=== PATIENT | male | born 1955 | race Caucasian/White ===

== ENCOUNTER 2020-04-09 08:12 | Outpatient (REF) | payer OTHER, SELFPAY ==
--- NOTE | 2020-04-09 | US_ITS ---
EXAMINATION: MM DIAGNOSTIC DIGITAL BREAST TOMOSYNTHESIS, BILATERAL US DIAGNOSTIC ULTRASOUND BREAST, RIGHT CLINICAL INFORMATION: Male age 64 with 2-3 week history palpable fullness and tenderness retroareolar right breast. No discharge. No known family history breast cancer. No prior breast imaging. COMPARISON: None (current study represents initial baseline exam). TECHNIQUE: Digital breast tomosynthesis is performed in both the craniocaudal and mediolateral oblique views along with computer-aided detection (CAD). Synthesized 2D images are generated from the tomosynthesis. Ultrasound right breast is targeted to the retroareolar and periareolar region. Grayscale imaging and color Doppler are performed without and with harmonics. FINDINGS: There are scattered areas of fibroglandular density (ACR BI-RADS breast composition Category b). There is asymmetric gynecomastia type parenchymal pattern, moderate on right and mild on left. There is no superimposed mass or architectural abnormality or abnormal calcifications. The axilla and skin contours are unremarkable. Ultrasound demonstrates no cystic or solid mass or architectural abnormality. No focal duct ectasia. No skin thickening or edema tracking in soft tissue planes. Results are discussed with the patient at time of visit. IMPRESSION: Bilateral asymmetric gynecomastia, greater on right. ASSESSMENT: BI-RADS 2: Benign RECOMMENDATION: Patient may be managed based on the clinical impression. If clinically indicated, further evaluation may be considered with surgical consult. Decision to proceed with biopsy should be based on clinical grounds and degree of clinical concern.
== END 2020-04-09 08:13 | disposition home or self-care (01) ==
LOC: HO.MAMMO 08:12
PROVIDERS: PCP Family Medicine; Visit Provider Family Medicine
DX: N63.10 Unspecified lump in the right breast, unspecified quadrant (principal)
CPT/HCPCS: 76642; 77062; 77066; 78013

== ENCOUNTER → 2020-09-04 15:01 | Outpatient (BNVA) | payer OTHER, SELFPAY | PROVIDERS: PCP Family Medicine; Visit Provider Internal Medicine | DX: I25.10 Atherosclerotic heart disease of native coronary artery without angina pectoris (principal); I25.5 Ischemic cardiomyopathy; I10 Essential (primary) hypertension; E78.5 Hyperlipidemia, unspecified; I45.10 Unspecified right bundle-branch block; G47.33 Obstructive sleep apnea (adult) (pediatric); Z99.89 Dependence on other enabling machines and devices | CPT/HCPCS: 93005 ==

== ENCOUNTER 2020-09-10 08:24 | Outpatient (REF) | payer OTHER, SELFPAY ==
[2020-09-10 09:23] LABS: Anion Gap 16 (12-20); Blood Urea Nitrogen 54 mg/dL (9-16); Calcium 8.8 mg/dL (8.4-10.2); Carbon Dioxide 17 mmol/L (22-29); Chloride 108 mmol/L (96-108); Estimated Glomerular Filt Rate 37; Potassium 5.1 mmol/L (3.3-5.1); Sodium 136 mmol/L (135-145)
== END 2020-09-10 08:25 | disposition home or self-care (01) ==
LOC: HO.LAB 08:24
PROVIDERS: PCP Nurse Practitioner Family; Visit Provider Internal Medicine Hypertension Specialist
DX: I13.0 Hypertensive heart and chronic kidney disease with heart failure and stage 1 through stage 4 chronic kidney disease, or unspecified chronic kidney disease (principal); I50.9 Heart failure, unspecified; N18.9 Chronic kidney disease, unspecified
CPT/HCPCS: 36415; 80051; 82310; 82565; 84520

== ENCOUNTER → 2021-02-12 14:54 | Outpatient (REF) | payer OTHER, SELFPAY ==
--- NOTE | 2021-02-12 14:58 | CA_ITS ---
Transthoracic Echocardiogram Patient (Last, First, Middle): Giovanni Sanders M Gender: Male Date of : 1955 Age: 65 Procedure Date: 02/12/2021 Procedure Type: Transthoracic Echocardiogram Location: OP Height: 175.26 cm Weight: 111.13 kg BSA: 2.25 m2 Heart Rate: bpm BP: 124 / 80 mmHg Vamper: Referring MD: Min Vanegas MD Symptoms: I25.5 - Ischemic cardiomyopathy, S/P CABG X3 2019 Study Quality: Fair ECG Rhythm: Sinus Conclusions: - The left ventricular systolic function is normal. The visually estimated ejection fraction is between 55-60%. - There is moderately increased left ventricular wall thickness. - There is moderately decreased right ventricular systolic function. - The basal inferior segment is hypokinetic. - The left atrium is moderately dilated. - No obvious valvular pathology seen on this study. Findings Left Ventricle Normal left ventricular cavity size. There is moderately increased left ventricular wall thickness. The left ventricular systolic function is normal. The visually estimated ejection fraction is between 55-60%. There is no evidence of regional wall motion abnormalities. E/E prime ratio is between 8 and 15 consistent with indeterminate filling pressures. Evidence suggests grade I (mild) diastolic dysfunction. Wall Motion Rest Echo Findings The basal inferior segment is hypokinetic. Right Ventricle Normal right ventricular cavity size. There is moderately decreased right ventricular systolic function. TAPSE 1.21cm. Atria The left atrium is moderately dilated. The right atrium is mildly dilated. Aortic Valve There is a normal trileaflet aortic valve. There is no aortic valve stenosis. There is no aortic valve regurgitation. Mitral Valve The mitral valve appears normal. There is no mitral valve regurgitation. There is no mitral valve stenosis. Pulmonic Valve The pulmonic valve was not well visualized. Tricuspid Valve There is trace tricuspid valve regurgitation. The pulmonary artery systolic pressure is normal. Great Vessels The aortic annulus, sinuses of valsalva, and asc aorta are normal in size. Venous The inferior vena cava is normal in size and collapses greater than 50% with inspiration. Pericardium/Pleural There is no evidence of pericardial effusion. Prior Study Comparison No significant change compared to prior study dated: 05/18/2019. Recommendations, Care & Conclusions No obvious valvular pathology seen on this study. Measurements 2D Linear Measurements IVSd: 1.44 0.6-0.9/0.6-1.0 cm LVIDd: 5.92 3.9-5.3/4.2-5.9 cm LVIDd Index: 2.63 2.4-3.2/2.2-3.1 cm/m2 LVIDs: 4.52 2.0-3.6 cm LVPWd: 1.39 0.7-1.1 cm Ao Root: 3.70 2.1-3.5 cm LA Diam: 5.40 2.7-3.8/3.0-4.0 cm LAIDs Index: 2.40 1.5-2.3 cm/m2 LV Mass: 480.95 67-162/88-224 g LV Mass Index: 213.75 43-95/49-115 g/m2 LVOT Diam: 2.10 3.0+(-)1.3 cm 2D Systolic Function EF 4C: 54.20 >55% EF 2C: 49.80 >55% EF BiP: 52.00 >55% Mitral Valve MV Pk E: 0.65 MV PK A: 0.88 MV Decel Time: 212.00 E/A: 0.70 E'Lateral: 10.60 E'Medial: 5.77 E/E' Med: 11.20 E/E' Lat: 6.10 PHT: 62.00 MVA PHT: 3.55 Decel [place]: 3.05 Aortic Valve AoV Pk Enzo: 1.74 AoV Mn Enzo: 1.17 AoV VTI: 0.33 AoV Pk Grad: 12.00 Aov Mn Grad: 6.00 HOLLY Cont.VTI: 2.29 LVOT LVOT Pk Enzo: 1.08 LVOT Mn Enzo: 0.66 LVOT VTI: 0.22 LVOT Pk Grad: 5.00 LVOT Mn Grad: 2.00 LVOT Diam: 2.10 LVOT Area: 3.46 Diastolic Function MV Pk E: 0.65 MV Pk A: 0.88 E/A: 0.70 E'Medial: 5.77 E/E' Med: 11.20 E' Laterial: 10.60 E/E' Lat: 6.10 Right Ventricle TAPSE (mm): 12.00 Tricuspid Valve TR Pk Enzo: 2.07 TR Pk Grad: 17.00 RA Press: 3.00 RVSP: 20.00 Great Vessels Aorta Ao Root-2D: 3.70 2.0-3.7 cm Ao Asc: 3.70 2.1-3.4 cm Pulmonary Valve PV Pk Enzo: 1.22 Peak PV Grad: 6.00 Updated in Other Vendor System with Status of Final Min Vanegas MD electronically signed on 02/13/2021 12:01:45 PM with status of Final
== END ==
LOC: HO.CARD 14:54
PROVIDERS: PCP Nurse Practitioner Family; Visit Provider Internal Medicine
DX: I25.5 Ischemic cardiomyopathy (principal)
CPT/HCPCS: 93306

== ENCOUNTER 2021-03-07 12:01 | Outpatient (REF) | payer OTHER, SELFPAY ==
[2021-03-07 14:40] LABS: Anion Gap 13 (12-20); Blood Urea Nitrogen 40 mg/dL (9-16); Calcium 9.3 mg/dL (8.4-10.2); Carbon Dioxide 22 mmol/L (22-29); Chloride 108 mmol/L (96-108); Estimated Glomerular Filt Rate 36; Glucose Random 87 mg/dL (60-115); Potassium 4.5 mmol/L (3.3-5.1); Sodium 138 mmol/L (135-145)
== END 2021-03-07 12:02 | disposition home or self-care (01) ==
LOC: HO.LAB 12:01
PROVIDERS: PCP Nurse Practitioner Family; Visit Provider Internal Medicine
DX: I25.5 Ischemic cardiomyopathy (principal)
CPT/HCPCS: 36415; 80048

== ENCOUNTER → 2021-03-12 14:58 | Outpatient (BNVA) | payer OTHER, SELFPAY | PROVIDERS: PCP Nurse Practitioner Family; Referring Provider Nurse Practitioner Family; Visit Provider Internal Medicine ==

== ENCOUNTER 2021-03-19 06:52 | Outpatient (REF) | payer OTHER, SELFPAY ==
[2021-03-19 09:05] LABS: Anion Gap 13 (12-20); Blood Urea Nitrogen 36 mg/dL (9-16); Calcium 9.2 mg/dL (8.4-10.2); Carbon Dioxide 22 mmol/L (22-29); Chloride 108 mmol/L (96-108); Estimated Glomerular Filt Rate 38; Sodium 138 mmol/L (135-145)
== END 2021-03-19 06:53 | disposition home or self-care (01) ==
LOC: HO.LAB 06:52
PROVIDERS: PCP Nurse Practitioner Family; Visit Provider Internal Medicine Hypertension Specialist
DX: N18.31 Chronic kidney disease, stage 3a (principal)
CPT/HCPCS: 36415; 80051; 82310; 82565; 84520

== ENCOUNTER 2021-08-16 10:35 | Outpatient (REF) | payer OTHER, SELFPAY ==
--- NOTE | ~2021-08-16 | XR_ITS ---
EXAMINATION: XR ANKLE, LEFT CLINICAL INFORMATION: Effusion. Pain COMPARISON: None TECHNIQUE: AP, lateral, and mortise views of the left ankle. FINDINGS: There is moderate lateral malleolar soft tissue swelling with bridging osteophyte along the fibula and talus. The ankle mortise and subtalar joints are normal. There is a moderate size calcaneal heel and retrocalcaneal enthesophytes. No acute fracture seen. XR/XR ankle LT min 3V IMPRESSION: Moderate size retrocalcaneal and calculi heel enthesophytes. No visible acute fracture or dislocation seen.
== END 2021-08-16 10:36 | disposition home or self-care (01) ==
LOC: HO.HMGCX 10:35
PROVIDERS: PCP Nurse Practitioner Family; Visit Provider Nurse Practitioner Family
DX: M25.472 Effusion, left ankle (principal)
CPT/HCPCS: 73610

== ENCOUNTER 2021-08-23 06:14 | Outpatient (REF) | payer OTHER, SELFPAY ==
[2021-08-23 07:29] LABS: Hemoglobin 13.6 g/dl (14.0-18.0); Mean Corpuscular HGB Conc 33.2 g/dl (31.0-36.0); Mean Corpuscular Hemoglobin 28.2 pg (27.0-33.0); Mean Corpuscular Volume 85.1 fL (80.0-98.0); Mean Platelet Volume 10.7 fL (9.4-12.4); Platelet Count 185 X10*3/uL (160-400); Red Blood Count 4.82 X10*6/uL (4.60-5.80); White Blood Count 16.6 X10*3/uL (4.8-10.8)
[2021-08-23 07:52] LABS: Alanine Aminotransferase 34 U/L (0-40); Albumin Level 3.9 g/dL (3.5-5.0); Alkaline Phosphatase 71 U/L (39-117); Anion Gap 12 (12-20); Aspartate Amino Transferase 15 U/L (5-37); Bilirubin Total 0.7 mg/dL (0.0-1.0); Blood Urea Nitrogen 48 mg/dL (9-16); Calcium 9.1 mg/dL (8.4-10.2); Carbon Dioxide 22 mmol/L (22-29); Chloride 109 mmol/L (96-108); Estimated Glomerular Filt Rate 46; Glucose Fasting 98 mg/dL (60-99); Potassium 4.5 mmol/L (3.3-5.1); Sodium 138 mmol/L (135-145)
[2021-08-23 07:55] LABS: Alanine Aminotransferase 34 U/L (0-40); Albumin Level 3.9 g/dL (3.5-5.0); Alkaline Phosphatase 72 U/L (39-117); Anion Gap 15 (12-20); Aspartate Amino Transferase 15 U/L (5-37); Bilirubin Direct 0.2 mg/dL (0.0-0.5); Bilirubin Total 0.7 mg/dL (0.0-1.0); Blood Urea Nitrogen 50 mg/dL (9-16); Calcium 9.1 mg/dL (8.4-10.2); Carbon Dioxide 19 mmol/L (22-29); Chloride 109 mmol/L (96-108); Cholesterol 94 mg/dL; Estimated Glomerular Filt Rate 46; Glucose Random 101 mg/dL (60-115); HDL Cholesterol 25 mg/dL; LDL Cholesterol Calculated 47 mg/dl; Potassium 4.5 mmol/L (3.3-5.1); Sodium 138 mmol/L (135-145); Total Protein 7.1 g/dL (6.5-8.0); Triglycerides 113 mg/dL
[2021-08-23 08:14] LABS: Prostate Specific Antigen 1.83 ng/mL (<0.05-4.0); Thyroid Stimulating Hormone 1.44 uIU/mL (0.32-4.0)
== END 2021-08-23 06:15 | disposition home or self-care (01) ==
LOC: HO.LAB 06:14
PROVIDERS: Internal Medicine; PCP Nurse Practitioner Family; Visit Provider Nurse Practitioner Family
DX: Z00.00 Encounter for general adult medical examination without abnormal findings (principal); Z12.5 Encounter for screening for malignant neoplasm of prostate; I25.10 Atherosclerotic heart disease of native coronary artery without angina pectoris; E78.5 Hyperlipidemia, unspecified
CPT/HCPCS: 36415; 80048; 80053; 80061; 80076; 82248; 84153; 84443; 85027

== ENCOUNTER → 2021-09-12 15:09 | Outpatient (BNVA) | payer OTHER, SELFPAY | PROVIDERS: PCP Nurse Practitioner Family; Visit Provider Internal Medicine | DX: I25.10 Atherosclerotic heart disease of native coronary artery without angina pectoris (principal); I25.5 Ischemic cardiomyopathy; I10 Essential (primary) hypertension; I45.10 Unspecified right bundle-branch block; E78.5 Hyperlipidemia, unspecified; G47.33 Obstructive sleep apnea (adult) (pediatric); Z99.89 Dependence on other enabling machines and devices | CPT/HCPCS: 93005 ==

== ENCOUNTER 2022-01-30 06:06 | Outpatient (REF) | payer OTHER, SELFPAY ==
[2022-01-30 07:34] LABS: Hematocrit 44.8 % (42.0-52.0); Hemoglobin 14.8 g/dl (14.0-18.0); Mean Corpuscular Volume 84.7 fL (80.0-98.0); Mean Platelet Volume 11.1 fL (9.4-12.4); Platelet Count 180 X10*3/uL (160-400); Red Blood Count 5.29 X10*6/uL (4.60-5.80); White Blood Count 11.5 X10*3/uL (4.8-10.8)
[2022-01-30 08:18] LABS: Prostate Specific Antigen 1.64 ng/mL (<0.05-4.0); Thyroid Stimulating Hormone 2.95 uIU/mL (0.32-4.0)
[2022-01-30 08:23] LABS: Cholesterol 92 mg/dL; HDL Cholesterol 25 mg/dL; LDL Cholesterol Calculated 49 mg/dl; Triglycerides 93 mg/dL
== END 2022-01-30 06:07 | disposition home or self-care (01) ==
LOC: HO.LAB 06:06
PROVIDERS: PCP Nurse Practitioner Family; Visit Provider Nurse Practitioner Family
DX: Z00.00 Encounter for general adult medical examination without abnormal findings (principal); Z12.5 Encounter for screening for malignant neoplasm of prostate
CPT/HCPCS: 36415; 80061; 84153; 84443; 85027

== ENCOUNTER 2022-03-03 10:09 | Emergency (ER) | payer OTHER, SELFPAY ==
--- NOTE | ~2022-03-03 | XR_ITS ---
EXAMINATION: XR FOOT, RIGHT CLINICAL INFORMATION: Right foot pain, injury. COMPARISON: None TECHNIQUE: AP, lateral, and oblique views of the right foot. An indicator arrow points to the first digit. FINDINGS: There is no acute fracture or dislocation. The joint spaces are unremarkable. There is a congenitally shortened third metatarsal without acute associated abnormality. The tarsal bones are normally aligned. Small retrocalcaneal spur. The soft tissues are unremarkable. XR/XR foot RT min 3V IMPRESSION: 1. No acute fracture. 2. Small retrocalcaneal spur.
[2022-03-03 10:13] VITALS: BP 161/110; PULSE 80; RESP 16; TEMP 36.9; O2SAT 98; BMI 37.2
--- NOTE | 2022-03-03 11:03 | ED_ITS ---
HPI - Extremity Problem General Chief complaint: Extremity Problem Stated complaint: R foot pain Time Seen by Provider: 03/03/22 10:17 Source: patient Mode of arrival: ambulatory Limitations: no limitations History of Present Illness HPI Narrative: Patient presents emergency department for evaluation of right great toe pain. He states approximately 3 weeks ago he tripped and had some initial pain to this area but that had resolved. Two days ago he had tripped /stubbed his toe again while walking, and since then he has been having pain particularly to the right great toe and at the base. There is no redness. There is some swelling. Pain is made worse with weight-bearing. Denies numbness or tingling. He states a couple of months ago he was treated for pseudogout to the left ankle, at that time did not have labs obtained, uric acid, and he was treated with a course of prednisone and tramadol which he states somewhat helped his symptoms. Related Data Home Medications Medication Instructions Recorded Confirmed aspirin 81 mg tablet,delayed 81 mg PO DAILY 09/04/20 09/12/21 release spironolactone 25 mg tablet 25 mg PO DAILY 09/04/20 09/12/21 psyllium husk 0.52 gram capsule 0.52 g PO DAILY 03/12/21 09/12/21 (Metamucil) multivitamin 1 tab PO DAILY 09/12/21 09/12/21 Previous Rx's Medication Instructions Recorded amlodipine 10 mg tablet 10 mg PO DAILY 90 days #90 tabs 03/07/21 furosemide 40 mg tablet 40 mg PO DAILY 90 days #90 tabs 03/07/21 atorvastatin 80 mg tablet 80 mg PO DAILY #90 tabs 09/23/21 ezetimibe 10 mg tablet 10 mg PO DAILY #90 tabs 10/21/21 carvedilol 12.5 mg tablet 18.75 mg PO BID #270 tabs 12/20/21 hydralazine 50 mg tablet 50 mg PO TID #270 tabs 12/20/21 colchicine 0.6 mg tablet 0.6 mg PO DAILY #7 tabs 03/03/22 Allergies Allergy/AdvReac Type Severity Reaction Status Date / Time hydrocodone AdvReac Unknown cannot Verified 09/12/21 15:14 tolerate Review of Systems Review of Systems: Constitutional: No weight loss, fever, chills, weakness or fatigue. Skin: No rash or itching. Cardiovascular: No chest pain, chest pressure or chest discomfort. No palpitations or pedal edema. Respiratory: No shortness of breath, cough or sputum production. Gastrointestinal: No anorexia, nausea, vomiting or diarrhea. No abdominal pain or blood in stool. Genitourinary: No burning micturition. No urinary frequency or incontinence. Musculoskeletal: Positive right great toe pain Psychiatric: No depression or anxiety. Yes all other systems are reviewed and are negative PMFSH Past Medical History Attestation statement: The following information was validated with the patient. Source: old records reviewed Medical History Atherosclerotic cardiovascular disease Essential hypertension Ischemic cardiomyopathy JUAN C on CPAP Other and unspecified hyperlipidemia Right bundle branch block Surgical History History of cardiac catheterization History of coronary artery bypass graft (~06/2018) Family History Family History Father No problems noted. Mother No problems noted. Social History Social History Patient Tobacco Use Status: Never used Tobacco Advance Directives: Yes Advance Directives Information Provided: Yes Advance Directives on File: No Physical Exam Vital Signs: Vital Signs: Last Vital Signs Temp 98.5 F 03/03/22 10:13 Pulse 80 03/03/22 10:13 Resp 16 03/03/22 10:13 BP 161/110 H 03/03/22 10:13 Pulse Ox 98 03/03/22 10:13 O2 Del Method 03/03/22 10:13 BMI result Body Mass Index 37.2 Appearance: Alert.?Oriented to person, place and time. No acute distr ess.?Normal affect. Eyes: Pupils equal, round and reactive to light.? ENT: Pharynx normal.?? Neck: Normal inspection.? Neck supple.?? CVS: Heart sounds normal. Normal heart rate and rhythm.? Pulses normal.?? Respiratory: No respiratory distress.? Lung sounds clear to auscultation bilaterally?? Abdomen: Soft and non-tender. ? Skin: Skin warm and dry.? Normal skin color.? ? Extremities: right foot with localized swelling to the great toe and the 1st metatarsal, no erythema, no warmth, no obvious deformity. significant tenderness upon palpation. Decreased AROM to the great toe. Palpable 2+ DP/PT pulse bilaterally. Neuro: Moves all extremities spontaneously. Sensation intact bilaterally. No motor deficits Ambulates with slow antalgic gait. Course Course Course Narrative: patient is a 66-year-old male with a past medical history of ASCVD, hypertension, c-myc cardiomyopathy, obstructive sleep apnea who presents emergency department for evaluation of right great toe pain. Had reported recent injury, however XR reveals no acute fracture dislocation, incidental finding of small retrocalcaneal spur. physical examination consistent with podagra, will treat as gout patient received colchicine 1.2mg while in the emergency department, advised plan of care for discharge home with prescription for colchicine, rest, use of postop shoe to alleviate pressure, worrisome signs and symptoms to return back to emergency department for, patient to follow-up with primary care provider MDM - Extremity (Nontraumatic) Medical Records Attestation: I reviewed the patient's medical records. Imaging Data foot xr: Radiologist's impression: XR/XR foot RT min 3V IMPRESSION: 1. No acute fracture. 2. Small retrocalcaneal spur. Discharge Plan Discharge Clinical Impression: Gout Patient Disposition: Home, Self-Care Instructions: Low Purine Diet (ED), Gout (ED) Additional Instructions: you have been given a new prescription for colchicine to take daily for gout. Please contact your primary care provider to arrange for a follow-up visit. Review discharge instructions on low purine diet, as a diet high in purines can increase uric acid levels which causes gout return to the emergency department with any new or worsening symptoms or concerns Prescriptions: New colchicine 0.6 mg tablet 0.6 mg PO DAILY Qty: 7 0RF No Action amlodipine 10 mg tablet 10 mg PO DAILY 90 Days Qty: 90 3RF furosemide 40 mg tablet 40 mg PO DAILY 90 Days Qty: 90 3RF atorvastatin 80 mg tablet 80 mg PO DAILY Qty: 90 3RF ezetimibe 10 mg tablet 10 mg PO DAILY Qty: 90 3RF carvedilol 12.5 mg tablet 18.75 mg PO BID Qty: 270 3RF hydralazine 50 mg tablet 50 mg PO TID Qty: 270 3RF multivitamin Tablet 1 tab PO DAILY spironolactone 25 mg tablet 25 mg PO DAILY aspirin 81 mg tablet,delayed release (DR/EC) 81 mg PO DAILY psyllium husk [Metamucil] 0.52 gram capsule 0.52 g PO DAILY Referrals: Heidi Hernandez, [employer] [Primary Care Provider] - 1 week
[2022-03-03 11:45] VITALS: BP 131/84; PULSE 66; RESP 15; TEMP 36.8; O2SAT 98
[2022-03-03] MEDS: Colchicine 0.6 MG TABLET 1.2 MG PO (12:18)
== END 2022-03-03 12:24 | disposition home or self-care (01) ==
PROVIDERS: Emergency Provider Emergency Medicine; PCP Nurse Practitioner Family
DX: M10.9 Gout, unspecified (principal); M79.671 Pain in right foot; I10 Essential (primary) hypertension; E78.5 Hyperlipidemia, unspecified; Z79.02 Long term (current) use of antithrombotics/antiplatelets; Z79.899 Other long term (current) drug therapy
CPT/HCPCS: 73630; 99282; 99283

== ENCOUNTER 2022-03-25 08:20 | Outpatient (REF) | payer OTHER, SELFPAY ==
[2022-03-25 08:30] LABS: MANUAL DIFF FLAG NO
[2022-03-25 08:48] LABS: Basophils Absolute Auto 0.1 X10*3/uL (0.0-0.2); Basophils Percent Auto 0.7 % (0-2); Eosinophils Absolute Auto 0.3 X10*3/uL (0.0-0.4); Eosinophils Percent Auto 3.3 % (0-4); Hematocrit 46.8 % (42.0-52.0); Hemoglobin 14.9 g/dl (14.0-18.0); Imm Gran Abs Auto 0.34 X10*3/uL (0.00-0.03); Imm Gran Pct Auto 3.3 % (0.0-0.4); Lymphocytes Absolute Auto 1.7 X10*3/uL (1.2-4.9); Mean Corpuscular HGB Conc 31.8 g/dl (31.0-36.0); Mean Corpuscular Volume 84.8 fL (80.0-98.0); Mean Platelet Volume 10.7 fL (9.4-12.4); Monocytes Absolute Auto 1.2 X10*3/uL (0.1-1.2); Monocytes Percent Auto 11.5 % (2-11); Neutrophils Absolute Auto 6.5 x10*3/uL (2.0-8.3); Neutrophils Percent Auto 64.2 % (45-73); Platelet Count 188 X10*3/uL (160-400); Red Blood Count 5.52 X10*6/uL (4.60-5.80); Red Cell Distribution Width 13.9 % (11.0-16.0); White Blood Count 10.2 X10*3/uL (4.8-10.8)
[2022-03-25 08:52] LABS: Appearance Urine Clear; Color Urine Yellow; Glucose Urine UA Negative (Negative); Leukocyte Esterase Urine Negative (Negative); Nitrite Urine Negative (Negative); Urine Blood Negative (Negative); Urine Ketones Negative (Negative); Urine Protein Negative (Neg-Trace)
[2022-03-25 08:56] LABS: Estimated Average Glucose 157 mg/dL; Hemoglobin A1c % 7.1 %
[2022-03-25 09:05] LABS: Bacteria Urine None Seen (None Seen); Hyaline Casts Urine 0-2 /LPF (0-2); RBC Urine 0-2 /HPF (0-2); Squamous Epithelial Cell Urine 0-2 /HPF (0-2); WBC Urine 0-5 /HPF (0-5)
[2022-03-25 09:15] LABS: Alanine Aminotransferase 27 U/L (0-40); Albumin Level 4.2 g/dL (3.5-5.0); Alkaline Phosphatase 68 U/L (39-117); Anion Gap 17 (12-20); Aspartate Amino Transferase 18 U/L (5-37); Bilirubin Total 0.7 mg/dL (0.0-1.0); Blood Urea Nitrogen 41 mg/dL (9-16); C Reactive Protein 0.22 mg/dL (< or = 0.50); Calcium 9.4 mg/dL (8.4-10.2); Carbon Dioxide 22 mmol/L (22-29); Chloride 105 mmol/L (96-108); Estimated Glomerular Filt Rate 43; Glucose Random 176 mg/dL (60-115); Potassium 5.1 mmol/L (3.3-5.1); Sodium 139 mmol/L (135-145); Total Protein 7.2 g/dL (6.5-8.0); Uric Acid 9.7 mg/dL (3.4-7.0)
[2022-03-25 09:28] LABS: Erythrocyte Sedimentation Rate 16 MM/HR (0-15)
== END 2022-03-25 08:21 | disposition home or self-care (01) ==
LOC: HO.LAB 08:20
PROVIDERS: Absent Provider Nurse Practitioner Family; PCP Nurse Practitioner Family; Visit Provider Student in an Organized Health Care Education/Training Program
DX: M10.9 Gout, unspecified (principal); E66.9 Obesity, unspecified
CPT/HCPCS: 36415; 80053; 81001; 83036; 84550; 85025; 85652; 86140

== ENCOUNTER 2022-05-01 06:07 | Outpatient (REF) | payer OTHER, SELFPAY ==
[2022-05-01 07:25] LABS: Hematocrit 44.8 % (42.0-52.0); Hemoglobin 14.6 g/dl (14.0-18.0); Mean Corpuscular HGB Conc 32.6 g/dl (31.0-36.0); Mean Corpuscular Hemoglobin 27.3 pg (27.0-33.0); Mean Corpuscular Volume 83.9 fL (80.0-98.0); Mean Platelet Volume 11.2 fL (9.4-12.4); Platelet Count 177 X10*3/uL (160-400); Red Blood Count 5.34 X10*6/uL (4.60-5.80); Red Cell Distribution Width 13.8 % (11.0-16.0)
[2022-05-01 07:46] LABS: Anion Gap 18 (12-20); Blood Urea Nitrogen 43 mg/dL (9-16); Calcium 9.1 mg/dL (8.4-10.2); Carbon Dioxide 21 mmol/L (22-29); Chloride 103 mmol/L (96-108); Estimated Glomerular Filt Rate 38; Potassium 4.7 mmol/L (3.3-5.1); Sodium 137 mmol/L (135-145)
[2022-05-01 07:54] LABS: Band Neutrophils Percent 3 % (3-5); Eosinophils Absolute Manual 0.3 X10*3/uL (0.0-0.4); Eosinophils Percent Manual 3 % (0-4); Lymphocytes Absolute Manual 2.5 X10*3/uL (1.2-4.9); Lymphocytes Percent Manual 23 % (20-40); Monocytes Absolute Manual 1.8 X10*3/uL (0.1-1.2); Monocytes Percent Manual 16 % (2-11); Neutrophils Absolute Manual 6.4 X10*3/uL (2.0-8.3); Neutrophils Percent Manual 55 % (45-73); Platelet Estimate NORMAL (NORMAL); Platelet Morphology Comment NORMAL; RBC Morphology NORMAL
[2022-05-01 08:05] LABS: Alanine Aminotransferase 33 U/L (0-40); Albumin Level 4.2 g/dL (3.5-5.0); Alkaline Phosphatase 59 U/L (39-117); Anion Gap 18 (12-20); Aspartate Amino Transferase 21 U/L (5-37); Bilirubin Total 0.7 mg/dL (0.0-1.0); Blood Urea Nitrogen 44 mg/dL (9-16); C Reactive Protein 0.08 mg/dL (< or = 0.50); Calcium 9.1 mg/dL (8.4-10.2); Carbon Dioxide 21 mmol/L (22-29); Chloride 104 mmol/L (96-108); Estimated Glomerular Filt Rate 38; Glucose Random 168 mg/dL (60-115); Potassium 4.7 mmol/L (3.3-5.1); Sodium 138 mmol/L (135-145); Total Protein 7.2 g/dL (6.5-8.0)
[2022-05-01 08:10] LABS: Erythrocyte Sedimentation Rate 7 MM/HR (0-15)
[2022-05-01 09:10] LABS: Uric Acid 10.8 mg/dL (3.4-7.0)
== END 2022-05-01 06:08 | disposition home or self-care (01) ==
LOC: HO.LAB 06:07
PROVIDERS: Absent Provider Internal Medicine Hypertension Specialist; PCP Nurse Practitioner Family; Visit Provider Student in an Organized Health Care Education/Training Program
DX: M10.9 Gout, unspecified (principal); N18.31 Chronic kidney disease, stage 3a
CPT/HCPCS: 36415; 80051; 80053; 82310; 82565; 84520; 84550; 85007; 85025; 85027; 85652; 86140

== ENCOUNTER 2022-07-14 06:12 | Outpatient (REF) | payer OTHER, SELFPAY ==
[2022-07-14 06:52] LABS: MANUAL DIFF FLAG NO
[2022-07-14 08:26] LABS: Basophils Absolute Auto 0.1 X10*3/uL (0.0-0.2); Basophils Percent Auto 0.7 % (0-2); Eosinophils Absolute Auto 0.5 X10*3/uL (0.0-0.4); Eosinophils Percent Auto 3.9 % (0-4); Hematocrit 45.2 % (42.0-52.0); Hemoglobin 15.1 g/dl (14.0-18.0); Imm Gran Abs Auto 0.58 X10*3/uL (0.00-0.03); Lymphocytes Absolute Auto 2.1 X10*3/uL (1.2-4.9); Lymphocytes Percent Auto 18.2 % (20-40); Mean Corpuscular HGB Conc 33.4 g/dl (31.0-36.0); Mean Corpuscular Hemoglobin 27.9 pg (27.0-33.0); Mean Corpuscular Volume 83.4 fL (80.0-98.0); Mean Platelet Volume 11.1 fL (9.4-12.4); Monocytes Absolute Auto 1.4 X10*3/uL (0.1-1.2); Neutrophils Percent Auto 60.2 % (45-73); Platelet Count 177 X10*3/uL (160-400); Red Blood Count 5.42 X10*6/uL (4.60-5.80); Red Cell Distribution Width 13.3 % (11.0-16.0); White Blood Count 11.6 X10*3/uL (4.8-10.8)
[2022-07-14 08:52] LABS: Alanine Aminotransferase 51 U/L (0-40); Alkaline Phosphatase 76 U/L (39-117); Anion Gap 13 (12-20); Aspartate Amino Transferase 22 U/L (5-37); Bilirubin Total 0.7 mg/dL (0.0-1.0); Blood Urea Nitrogen 43 mg/dL (9-16); Calcium 8.9 mg/dL (8.4-10.2); Carbon Dioxide 22 mmol/L (22-29); Chloride 105 mmol/L (96-108); Estimated Glomerular Filt Rate 36; Glucose Random 223 mg/dL (60-115); Potassium 3.8 mmol/L (3.3-5.1); Sodium 136 mmol/L (135-145)
== END 2022-07-14 06:13 | disposition home or self-care (01) ==
LOC: HO.LAB 06:12
PROVIDERS: PCP Nurse Practitioner Family; Visit Provider Student in an Organized Health Care Education/Training Program
DX: M10.9 Gout, unspecified (principal)
CPT/HCPCS: 36415; 80053; 84550; 85025

== ENCOUNTER → 2022-07-15 08:00 | Outpatient (BNVA) | payer OTHER, SELFPAY | PROVIDERS: PCP Nurse Practitioner Family; Visit Provider Student in an Organized Health Care Education/Training Program | DX: M10.371 Gout due to renal impairment, right ankle and foot (principal) ==

== ENCOUNTER 2022-09-09 06:15 | Outpatient (REF) | payer OTHER, SELFPAY ==
[2022-09-09 07:48] LABS: Hematocrit 42.7 % (42.0-52.0); Hemoglobin 13.8 g/dl (14.0-18.0); Mean Corpuscular HGB Conc 32.3 g/dl (31.0-36.0); Mean Corpuscular Volume 86.8 fL (80.0-98.0); Mean Platelet Volume 11.9 fL (9.4-12.4); Platelet Count 154 X10*3/uL (160-400); Red Blood Count 4.92 X10*6/uL (4.60-5.80); Red Cell Distribution Width 14.2 % (11.0-16.0); White Blood Count 9.6 X10*3/uL (4.8-10.8)
[2022-09-09 07:56] LABS: Estimated Average Glucose 243 mg/dL; Hemoglobin A1c % 10.1 %
[2022-09-09 08:07] LABS: Alanine Aminotransferase 34 U/L (0-40); Alkaline Phosphatase 62 U/L (39-117); Anion Gap 16 (12-20); Aspartate Amino Transferase 19 U/L (5-37); Bilirubin Total 0.6 mg/dL (0.0-1.0); Blood Urea Nitrogen 52 mg/dL (9-16); Calcium 8.9 mg/dL (8.4-10.2); Carbon Dioxide 20 mmol/L (22-29); Chloride 106 mmol/L (96-108); Estimated Glomerular Filt Rate 29; Glucose Random 195 mg/dL (60-115); Potassium 4.7 mmol/L (3.3-5.1); Sodium 137 mmol/L (135-145); Total Protein 6.7 g/dL (6.5-8.0); Uric Acid 8.3 mg/dL (3.4-7.0)
[2022-09-09 08:19] LABS: Band Neutrophils Percent 4 % (3-5); Basophils Abs Manual 0.1 X10*3/uL (0.0-0.2); Basophils Percent Manual 1 % (0-2); Eosinophils Absolute Manual 0.3 X10*3/uL (0.0-0.4); Eosinophils Percent Manual 3 % (0-4); Lymphocytes Absolute Manual 2.1 X10*3/uL (1.2-4.9); Lymphocytes Percent Manual 22 % (20-40); Metamyelocytes Absolute 0.1 X10*3/uL; Metamyelocytes Percent 1 %; Monocytes Absolute Manual 1.1 X10*3/uL (0.1-1.2); Monocytes Percent Manual 11 % (2-11); Neutrophils Percent Manual 58 % (45-73)
[2022-09-09 08:24] LABS: RBC Morphology NOTED
[2022-09-09 08:25] LABS: Acanthocytes 1+ (0-2) /OIF; Platelet Estimate SLIGHTLY DECREASED (NORMAL)
[2022-09-09 08:26] LABS: Large Platelet PRESENT; Platelet Morphology Comment NOTED
== END 2022-09-09 06:16 | disposition home or self-care (01) ==
LOC: HO.LAB 06:15
PROVIDERS: Absent Provider Student in an Organized Health Care Education/Training Program; PCP Nurse Practitioner Family; Visit Provider Nurse Practitioner Family
DX: Z12.5 Encounter for screening for malignant neoplasm of prostate (principal); I13.0 Hypertensive heart and chronic kidney disease with heart failure and stage 1 through stage 4 chronic kidney disease, or unspecified chronic kidney disease; N18.9 Chronic kidney disease, unspecified; I50.9 Heart failure, unspecified; M10.9 Gout, unspecified; E78.00 Pure hypercholesterolemia, unspecified
CPT/HCPCS: 36415; 80053; 82550; 83036; 84153; 84550; 85007; 85025; 85027

== ENCOUNTER → 2022-09-11 07:31 | Outpatient (BNVA) | payer OTHER, SELFPAY | PROVIDERS: PCP Nurse Practitioner Family; Visit Provider Student in an Organized Health Care Education/Training Program | DX: Z13.89 Encounter for screening for other disorder (principal) ==

== ENCOUNTER → 2022-09-30 15:09 | Outpatient (BNVA) | payer OTHER, SELFPAY | PROVIDERS: PCP Nurse Practitioner Family; Referring Provider Nurse Practitioner Family; Visit Provider Internal Medicine | DX: I25.10 Atherosclerotic heart disease of native coronary artery without angina pectoris (principal); I25.5 Ischemic cardiomyopathy; I10 Essential (primary) hypertension; E78.5 Hyperlipidemia, unspecified; I45.10 Unspecified right bundle-branch block | CPT/HCPCS: 93005 ==

== ENCOUNTER 2022-10-29 06:12 | Outpatient (REF) | payer OTHER, SELFPAY ==
[2022-10-29 07:42] LABS: Creatinine Urine 38.34 mg/dL; Total Protein Urine Random < 7 mg/dL (<12)
[2022-10-29 07:42] LABS: Anion Gap 16 (12-20); Blood Urea Nitrogen 48 mg/dL (9-16); Calcium 9.1 mg/dL (8.4-10.2); Carbon Dioxide 18 mmol/L (22-29); Chloride 109 mmol/L (96-108); Estimated Glomerular Filt Rate 40; Glucose Random 154 mg/dL (60-115); Potassium 4.9 mmol/L (3.3-5.1); Sodium 138 mmol/L (135-145)
[2022-10-31 13:08] LABS: Calcium (PTHI) 9.2 mg/dL (8.6-10.3); PTHI 77 pg/mL (16-77)
== END 2022-10-29 06:13 | disposition home or self-care (01) ==
LOC: HO.LAB 06:12
PROVIDERS: PCP Nurse Practitioner Family; Visit Provider Internal Medicine Hypertension Specialist
DX: N18.32 Chronic kidney disease, stage 3b (principal)
CPT/HCPCS: 36415; 80048; 83970; 84156; 84550

== ENCOUNTER 2022-11-26 06:28 | Outpatient (REF) | payer MEDICARE, SELFPAY ==
[2022-11-26 06:47] LABS: MANUAL DIFF FLAG NO
[2022-11-26 07:00] LABS: Lactic Acid 1.6 mmol/L (0.5-2.0)
[2022-11-26 07:04] LABS: Basophils Absolute Auto 0.1 X10*3/uL (0.0-0.2); Basophils Percent Auto 0.8 % (0-2); Eosinophils Absolute Auto 0.3 X10*3/uL (0.0-0.4); Eosinophils Percent Auto 4.1 % (0-4); Hematocrit 40.8 % (42.0-52.0); Hemoglobin 13.3 g/dl (14.0-18.0); Imm Gran Abs Auto 0.37 X10*3/uL (0.00-0.03); Imm Gran Pct Auto 4.5 % (0.0-0.4); Lymphocytes Absolute Auto 1.6 X10*3/uL (1.2-4.9); Lymphocytes Percent Auto 18.9 % (20-40); Mean Corpuscular HGB Conc 32.6 g/dl (31.0-36.0); Mean Corpuscular Hemoglobin 28.7 pg (27.0-33.0); Mean Corpuscular Volume 88.1 fL (80.0-98.0); Mean Platelet Volume 11.2 fL (9.4-12.4); Monocytes Absolute Auto 1.1 X10*3/uL (0.1-1.2); Monocytes Percent Auto 12.6 % (2-11); Neutrophils Absolute Auto 4.9 x10*3/uL (2.0-8.3); Neutrophils Percent Auto 59.1 % (45-73); Platelet Count 156 X10*3/uL (160-400); Red Blood Count 4.63 X10*6/uL (4.60-5.80); Red Cell Distribution Width 15.4 % (11.0-16.0); White Blood Count 8.3 X10*3/uL (4.8-10.8)
[2022-11-26 07:22] LABS: Alanine Aminotransferase 46 U/L (0-40); Albumin Level 3.8 g/dL (3.5-5.0); Alkaline Phosphatase 60 U/L (39-117); Anion Gap 18 (12-20); Aspartate Amino Transferase 22 U/L (5-37); Bilirubin Total 0.5 mg/dL (0.0-1.0); Blood Urea Nitrogen 38 mg/dL (9-16); Calcium 9.1 mg/dL (8.4-10.2); Carbon Dioxide 17 mmol/L (22-29); Chloride 110 mmol/L (96-108); Estimated Glomerular Filt Rate 42; Glucose Random 104 mg/dL (60-115); Potassium 4.5 mmol/L (3.3-5.1); Sodium 140 mmol/L (135-145); Total Protein 6.6 g/dL (6.5-8.0)
== END 2022-11-26 06:29 | disposition home or self-care (01) ==
LOC: HO.LAB 06:28
PROVIDERS: Absent Provider Internal Medicine Hypertension Specialist; PCP Nurse Practitioner Family; Visit Provider Student in an Organized Health Care Education/Training Program
DX: N18.31 Chronic kidney disease, stage 3a (principal); M10.9 Gout, unspecified
CPT/HCPCS: 36415; 80053; 83605; 84550; 85025

== ENCOUNTER → 2022-11-27 07:18 | Outpatient (BNVA) | payer MEDICARE, SELFPAY | PROVIDERS: PCP Nurse Practitioner Family; Visit Provider Student in an Organized Health Care Education/Training Program | DX: M10.371 Gout due to renal impairment, right ankle and foot (principal); M17.0 Bilateral primary osteoarthritis of knee; Z79.899 Other long term (current) drug therapy | CPT/HCPCS: 99212 ==

== ENCOUNTER 2023-03-26 06:50 | Outpatient (REF) | payer MEDICARE, SELFPAY ==
[2023-03-26 07:12] LABS: MANUAL DIFF FLAG NO
[2023-03-26 07:32] LABS: Basophils Absolute Auto 0.1 X10*3/uL (0.0-0.2); Basophils Percent Auto 0.7 % (0-2); Eosinophils Absolute Auto 0.4 X10*3/uL (0.0-0.4); Eosinophils Percent Auto 3.9 % (0-4); Hematocrit 42.9 % (42.0-52.0); Hemoglobin 13.9 g/dl (14.0-18.0); Imm Gran Abs Auto 0.39 X10*3/uL (0.00-0.03); Imm Gran Pct Auto 3.6 % (0.0-0.4); Lymphocytes Absolute Auto 1.8 X10*3/uL (1.2-4.9); Lymphocytes Percent Auto 16.7 % (20-40); Mean Corpuscular HGB Conc 32.4 g/dl (31.0-36.0); Mean Corpuscular Hemoglobin 27.9 pg (27.0-33.0); Mean Platelet Volume 10.8 fL (9.4-12.4); Monocytes Absolute Auto 1.3 X10*3/uL (0.1-1.2); Monocytes Percent Auto 11.9 % (2-11); Neutrophils Absolute Auto 6.8 x10*3/uL (2.0-8.3); Neutrophils Percent Auto 63.2 % (45-73); Platelet Count 168 X10*3/uL (160-400); Red Blood Count 4.99 X10*6/uL (4.60-5.80); Red Cell Distribution Width 15.8 % (11.0-16.0); White Blood Count 10.7 X10*3/uL (4.8-10.8)
[2023-03-26 07:49] LABS: Creatinine Urine 148.46 mg/dL
[2023-03-26 07:55] LABS: Alanine Aminotransferase 28 U/L (0-40); Albumin Level 3.8 g/dL (3.5-5.0); Alkaline Phosphatase 61 U/L (39-117); Anion Gap 14 (12-20); Aspartate Amino Transferase 16 U/L (5-37); Bilirubin Total 0.4 mg/dL (0.0-1.0); Blood Urea Nitrogen 34 mg/dL (9-16); Calcium 9.1 mg/dL (8.4-10.2); Carbon Dioxide 23 mmol/L (22-29); Chloride 107 mmol/L (96-108); Cholesterol 86 mg/dL (<200); Estimated Glomerular Filt Rate 46; Glucose Random 121 mg/dL (60-115); HDL Cholesterol 23 mg/dL (>40); LDL Cholesterol Calculated 32 mg/dL (<100); Potassium 4.7 mmol/L (3.3-5.1); Sodium 139 mmol/L (135-145); Total Protein 6.6 g/dL (6.5-8.0); Triglycerides 159 mg/dL (<150)
[2023-03-26 08:01] LABS: Estimated Average Glucose 146 mg/dL; Hemoglobin A1c % 6.7 % (<6.0)
[2023-03-26 08:02] LABS: Microalbum/Creatinine Ratio Ur 366.4 ug/mg cr (<30)
[2023-04-01 14:54] LABS: Testosterone, Total 204 ng/dL (250-1100)
== END 2023-03-26 06:51 | disposition home or self-care (01) ==
LOC: HO.LAB 06:50
PROVIDERS: PCP Nurse Practitioner Family; Visit Provider Nurse Practitioner Family
DX: I13.0 Hypertensive heart and chronic kidney disease with heart failure and stage 1 through stage 4 chronic kidney disease, or unspecified chronic kidney disease (principal); E11.22 Type 2 diabetes mellitus with diabetic chronic kidney disease; N18.9 Chronic kidney disease, unspecified; I25.810 Atherosclerosis of coronary artery bypass graft(s) without angina pectoris; N52.9 Male erectile dysfunction, unspecified
CPT/HCPCS: 36415; 80053; 80061; 82043; 82570; 83036; 84402; 84403; 85025

== ENCOUNTER 2023-03-31 09:03 | Outpatient (AMB) | payer MEDICARE, SELFPAY ==
[2023-03-31 09:20] VITALS: BP 118/76; PULSE 88; TEMP 36.7; O2SAT 97; BMI 37.2
--- NOTE | 2023-03-31 09:20 | A.OFFVIS_ITS ---
Intake Vital Signs 03/31/23 09:20 Height 5 ft 8 in Weight 244 lb 14.937 oz BMI 37.2 BP 118/76 Blood Pressure Location Rt brachial Position Sitting Pulse 88 Pulse Source Pulse Oximeter Temp 98.1 F Temp Source Skin Pulse Oximetry (%) 97 Intake Visit Reasons: Gout Hr Manager Required: No Accompanied by: Self / Same As Patient Allergies hydrocodone Adverse Reaction (Unknown, Verified 03/31/23 09:25) cannot tolerate Medication List - Last Reconciled 03/31/23 by Dafne Bradshaw MD allopurinol 300 mg PO DAILY amlodipine 10 mg PO DAILY aspirin 81 mg PO DAILY atorvastatin 80 mg PO DAILY carvedilol 18.75 mg (1.5 x 12.5 mg) PO BID ezetimibe 10 mg PO DAILY furosemide 40 mg PO DAILY 90 days hydralazine 50 mg PO BID metformin 1,000 mg PO BID psyllium husk (Metamucil) 0.52 grams PO DAILY semaglutide (Ozempic) 0.25 mg subcut QWEEK sildenafil 100 mg PO DAILY PRN spironolactone 25 mg PO DAILY HPI HPI Comments History of Present Illness Details 67-year-old male with gout returns for f ollow-up. On allopurinol 300 mg daily. States that since last visit 4 months ago he had 1 gout attack affecting his left ankle when he was out camping in [place] 2 months ago, it lasted 2 da ys. Patient iced his ankle and rested it and the attack resolved in 2 days. States that the attack was not as severe as his previous attacks. He drinks walters juice as well lemon water almost daily Initial history: This is a 66-year-old male with a past medical history of hypertension, dyslipidemia, CAD s/p triple bypass, CKD who presents for evaluation of gout. The condition started in July of 2021 with left ankle pain and swelling, he went to urgent care and received colchicine with resolution of his symptoms. He had another flare on weekend with right big toe pain and swelling. He went to urgent care and received 1.2 mg of colchicine and referred to his PCP. Was on colchicine for about 1 week then he had a recurrence of his gout symptoms. He was prescribed a prednisone taper by his PCP 30 mg for 3 days followed by 20 mg for 3 days followed by 10 mg for 3 days with resolution of his symptoms, few days later symptoms came back. He was then referred to Rheumatology. Patient denies any history of kidney stones or family history of gout. Denies alcohol consumption. He has no other joint involvement. [facility] Medical History (Updated 03/31/23 @ 09:47 by Dafne Bradshaw MD) Gout Right bundle branch block JUAN C on CPAP Other and unspecified hyperlipidemia Essential hypertension Atherosclerotic cardiovascular disease Ischemic cardiomyopathy Surgical History History of cardiac catheterization History of coronary artery bypass graft (~06/2018) Family History Father No problems noted. Mother No problems noted. Social History Patient Tobacco Use Status: Former Tobacco user Years Smoked: Quit 3 years ago Review of Systems [facility] [place] Denies joint swelling Physical Exam Vital Signs: Last Vital Signs Temp 98.1 F 03/31/23 09:20 Pulse 88 03/31/23 09:20 BP 118/76 03/31/23 09:20 Pulse Ox 97 03/31/23 09:20 BMI result Body Mass Index 37.2 Const General: cooperative, healthy appearing, comfortable and no acute distress Nutritional Appearance: obese morbidly obese Orientation/consciousness: patient oriented x3 Limitations: no limitations HEENT Head: Yes normocephalic and Yes atraumatic Resp Effort & Inspection: normal respiratory effort and able to speak in complete sentences Cardio Rate: regular rate Rhythm: regular rhythm Neuro General: patient oriented x3 Extrem Other: No synovitis today Bilateral knee crepitus Right knee pain with full flexion Mild osteoarthritic changes of hands No tophi on ears Assessment & Plan Assessment & Plan (1) Gout: Comment: Started with gout flares affecting ankles and feet, initial uric acid 10.8 Allopurinol and colchicine started 02/2022 Uric acid level at target 11/18 on allopurinol 300 mg daily. Colchicine DC 12/19 Code(s): M10.9 - Gout, unspecified Qualifiers: Gout site: toe Gout etiology: due to renal impairment Chronicity: acute Laterality: right Qualified Code(s): M10.371 - Gout due to renal impairment, right ankle and foot Plan: This is a 67-year-old male with obesity, hypertension, CKD, dyslipidemia, CAD s/p triple bypass who presents for gout follow-up. On allopurinol 300 mg daily. Had 1 minor gout flare that lasted 2 days over the last 4 months. Uric acid level unfortunately was not checked with recent set of labs. Continue allopurinol 300 mg daily. Advised patient to consider taking 2 tabs of colchicine at the onset of gout flare-up. Labs before next visit in 4 months (2) Bilateral primary osteoarthritis of knee: Code(s): M17.0 - Bilateral primary osteoarthritis of knee Plan: Minimally symptomatic at the moment. Plan I spent 25 minutes reviewing patient's chart, evaluating patient, ordering diagnostic workup, counseling patient and documenting in the chart Orders: Orders Uric Acid 4 Months M10.9 - Gout, unspecified Comprehensive Met. Panel 4 Months M10.9 - Gout, unspecified Medications: New colchicine (gout) Take 2 tabs once at the onset of gout attack. 20 tabs 1RF NS Coding Level of Care Code Est Pt Level 4 (27012) Diagnoses Acute gout due to renal impairment involving toe of right foot M10.371 Gout site: toe Gout etiology: due to renal impairment Chronicity: acute Laterality: right Bilateral primary osteoarthritis of knee M17.0
== END 2023-03-31 09:43 | disposition home or self-care (01) ==
PROVIDERS: PCP Nurse Practitioner Family; Visit Provider Student in an Organized Health Care Education/Training Program
DX: M10.371 Gout due to renal impairment, right ankle and foot (principal); M17.0 Bilateral primary osteoarthritis of knee
CPT/HCPCS: 99214

== ENCOUNTER → 2023-03-31 09:03 | Outpatient (BNVA) | payer MEDICARE, SELFPAY | PROVIDERS: PCP Nurse Practitioner Family; Visit Provider Student in an Organized Health Care Education/Training Program | DX: M10.371 Gout due to renal impairment, right ankle and foot (principal); M17.0 Bilateral primary osteoarthritis of knee; Z79.899 Other long term (current) drug therapy | CPT/HCPCS: 99212 ==

== ENCOUNTER 2023-06-03 09:09 | Outpatient (REF) | payer MEDICARE, SELFPAY ==
[2023-06-03 09:37] LABS: MANUAL DIFF FLAG NO
[2023-06-03 09:51] LABS: Basophils Absolute Auto 0.1 X10*3/uL (0.0-0.2); Basophils Percent Auto 0.5 % (0-2); Eosinophils Absolute Auto 0.4 X10*3/uL (0.0-0.4); Eosinophils Percent Auto 2.6 % (0-4); Hematocrit 43.9 % (42.0-52.0); Hemoglobin 14.6 g/dl (14.0-18.0); Imm Gran Abs Auto 0.44 X10*3/uL (0.00-0.03); Lymphocytes Percent Auto 13.3 % (20-40); Mean Corpuscular HGB Conc 33.3 g/dl (31.0-36.0); Mean Corpuscular Hemoglobin 28.3 pg (27.0-33.0); Mean Corpuscular Volume 85.2 fL (80.0-98.0); Mean Platelet Volume 11.2 fL (9.4-12.4); Monocytes Absolute Auto 1.4 X10*3/uL (0.1-1.2); Monocytes Percent Auto 9.7 % (2-11); Neutrophils Absolute Auto 10.4 x10*3/uL (2.0-8.3); Neutrophils Percent Auto 70.9 % (45-73); Platelet Count 201 X10*3/uL (160-400); Red Blood Count 5.15 X10*6/uL (4.60-5.80); Red Cell Distribution Width 15.9 % (11.0-16.0); White Blood Count 14.7 X10*3/uL (4.8-10.8)
[2023-06-03 10:23] LABS: Anion Gap 14 (12-20); Blood Urea Nitrogen 44 mg/dL (9-16); Calcium 9.8 mg/dL (8.4-10.2); Carbon Dioxide 21 mmol/L (22-29); Chloride 105 mmol/L (96-108); Estimated Glomerular Filt Rate 41; Potassium 4.8 mmol/L (3.3-5.1); Sodium 135 mmol/L (135-145); Uric Acid 4.8 mg/dL (3.4-7.0)
[2023-06-03 10:26] LABS: Creatinine Urine 205.38 mg/dL; Protein/Creatinine Ratio, Ur 0.12 (<0.2); Total Protein Urine Random 24 mg/dL (<12)
== END 2023-06-03 09:10 | disposition home or self-care (01) ==
LOC: HO.LAB 09:09
PROVIDERS: Visit Provider Internal Medicine Nephrology
DX: N18.31 Chronic kidney disease, stage 3a (principal)
CPT/HCPCS: 36415; 80051; 82310; 82565; 82570; 84156; 84520; 84550; 85025

== ENCOUNTER 2023-08-13 10:58 | Outpatient (REF) | payer MEDICARE, SELFPAY ==
[2023-08-13 12:22] LABS: Alanine Aminotransferase 27 U/L (0-40); Albumin Level 4.1 g/dL (3.5-5.0); Alkaline Phosphatase 73 U/L (39-117); Anion Gap 13 (12-20); Aspartate Amino Transferase 16 U/L (5-37); Bilirubin Total 0.8 mg/dL (0.0-1.0); Blood Urea Nitrogen 46 mg/dL (9-16); Calcium 9.5 mg/dL (8.4-10.2); Carbon Dioxide 23 mmol/L (22-29); Chloride 106 mmol/L (96-108); Estimated Glomerular Filt Rate 39; Glucose Random 104 mg/dL (60-115); Potassium 4.7 mmol/L (3.3-5.1); Sodium 137 mmol/L (135-145); Total Protein 7.2 g/dL (6.5-8.0)
== END 2023-08-13 10:59 | disposition home or self-care (01) ==
LOC: HO.LAB 10:58
PROVIDERS: Visit Provider Student in an Organized Health Care Education/Training Program
DX: M10.9 Gout, unspecified (principal)
CPT/HCPCS: 36415; 80053; 84550

== ENCOUNTER 2023-08-18 08:13 | Outpatient (AMB) | payer MEDICARE, SELFPAY ==
--- NOTE | 2023-08-18 08:16 | A.OFFVIS_ITS ---
Intake Vital Signs 08/18/23 08:17 Height 5 ft 8 in Weight 223 lb 5.252 oz BMI 34.0 BP 124/62 Blood Pressure Location Rt brachial Position Sitting Pulse 103 H Pulse Source Pulse Oximeter Temp 97 F Temp Source Skin Pulse Oximetry (%) 96 Oxygen Delivery Method Room Air Intake Visit Reasons: gout Intake Note: Patient last seen 03/31/23 presents today for follow up and test results. Cosmetician Required: No Accompanied by: Self / Same As Patient Allergies hydrocodone Adverse Reaction (Unknown, Verified 03/31/23 09:25) cannot tolerate Medication List - Last Reconciled 08/18/23 by Dafne Bradshaw MD allopurinol 300 mg PO DAILY amlodipine 10 mg PO DAILY aspirin 81 mg PO DAILY atorvastatin 80 mg PO DAILY carvedilol 18.75 mg (1.5 x 12.5 mg) PO BID colchicine Take 2 tabs once at the onset of gout attack. NS ezetimibe 10 mg PO DAILY furosemide 40 mg PO DAILY 90 days hydralazine 50 mg PO BID metformin 1,000 mg PO BID psyllium husk (Metamucil) 0.52 grams PO DAILY semaglutide (Ozempic) 0.25 mg subcut QWEEK sildenafil 100 mg PO DAILY PRN spironolactone 25 mg PO DAILY HPI HPI Comments History of Present Illness Details 68-year-old male with gout returns for f ollow-up. On allopurinol 300 mg daily. Doing well overall with no gout flare-ups since last visit. He gets interm ittent my left big toe pain that rapidly resolves in less than 1 day without swelling. Has not used colchicine since last visit. Doing well overall. Back to work 24 hours a week. Initial history: This is a 66-year-old male with a past medical history of hypertension, dyslipidemia, CAD s/p triple bypass, CKD who presents for evaluation of gout. The condition started in July of 2021 with left ankle pain and swelling, he went to urgent care and received colchicine with resolution of his symptoms. He had another flare on weekend with right big toe pain and swelling. He went to urgent care and received 1.2 mg of colchicine and referred to his PCP. Was on colchicine for about 1 week then he had a recurrence of his gout symptoms. He was prescribed a prednisone taper by his PCP 30 mg for 3 days followed by 20 mg for 3 days followed by 10 mg for 3 days with resolution of his symptoms, few days later symptoms came back. He was then referred to Rheumatology. Patient denies any history of kidney stones or family history of gout. Denies alcohol consumption. He has no other joint involvement. [facility] Medical History Gout Right bundle branch block JUAN C on CPAP Other and unspecified hyperlipidemia Essential hypertension Atherosclerotic cardiovascular disease Ischemic cardiomyopathy Surgical History History of cardiac catheterization History of coronary artery bypass graft (~06/2018) Family History Father No problems noted. Mother No problems noted. Social History Patient Tobacco Use Status: Former Tobacco user Years Smoked: Quit 3 years ago Review of Systems [place] Denies joint swelling Physical Exam Vital Signs: Last Vital Signs Temp 97 F 08/18/23 08:17 Pulse 103 H 08/18/23 08:17 BP 124/62 08/18/23 08:17 Pulse Ox 96 08/18/23 08:17 Oxygen Delivery Method Room Air 08/18/23 08:17 BMI result Body Mass Index 34.0 Const General: cooperative, healthy appearing, comfortable and no acute distress Nutritional Appearance: obese morbidly obese Orientation/consciousness: patient oriented x3 Limitations: no limitations HEENT Head: Yes normocephalic and Yes atraumatic Resp Effort & Inspection: normal respiratory effort and able to speak in complete sentences Cardio Rate: regular rate Rhythm: regular rhythm Neuro General: patient oriented x3 Extrem Other: No synovitis today Mild osteoarthritic changes of hands No tophi on ears Assessment & Plan Assessment & Plan (1) Gout: Comment: Started with gout flares affecting ankles and feet, initial uric acid 10.8 Allopurinol and colchicine started 02/2022 Uric acid level at target 11/18 on allopurinol 300 mg daily. Colchicine DC 12/19 Code(s): M10.9 - Gout, unspecified Qualifiers: Gout site: toe Gout etiology: due to renal impairment Chronicity: acute Laterality: right Qualified Code(s): M10.371 - Gout due to renal impai rment, right ankle and foot Plan: This is a 68-year-old male with obesity, hypertension, CKD, dyslipidemia, CAD s/p triple bypass who presents for gout follow-up. On allopurinol 300 mg daily. No gout flare-ups since last visit. Has not had to use any colchicine. Continue allopurinol 300 mg daily. Advised patient to consider taking 2 tabs of colchicine at the onset of gout flare-up. Labs before next visit in 4 months Plan I spent 18 minutes reviewing patient's chart, evaluating patient, ordering diagnostic workup, counseling patient and documenting in the chart Orders: Orders Comprehensive Met. Panel 4 Months M10.9 - Gout, unspecified Uric Acid 4 Months M10.9 - Gout, unspecified Coding Level of Care Code Est Pt Level 3 (20232) Diagnoses Acute gout due to renal impairment involving toe of right foot M10.371 Gout site: toe Gout etiology: due to renal impairment Chronicity: acute Laterality: right
[2023-08-18 08:17] VITALS: BP 124/62; PULSE 103; TEMP 36.1; O2SAT 96; BMI 34.0
== END 2023-08-18 08:37 | disposition home or self-care (01) ==
PROVIDERS: PCP Nurse Practitioner Family; Visit Provider Student in an Organized Health Care Education/Training Program
DX: M10.371 Gout due to renal impairment, right ankle and foot (principal)
CPT/HCPCS: 99213

== ENCOUNTER → 2023-08-18 08:13 | Outpatient (BNVA) | payer MEDICARE, SELFPAY | PROVIDERS: PCP Nurse Practitioner Family; Visit Provider Student in an Organized Health Care Education/Training Program | DX: M10.371 Gout due to renal impairment, right ankle and foot (principal) | CPT/HCPCS: 99212 ==

== ENCOUNTER 2023-10-01 09:05 | Outpatient (AMB) | payer MEDICARE, SELFPAY ==
[2023-10-01 09:09] VITALS: BP 90/66; PULSE 94; BMI 35.2
--- NOTE | 2023-10-01 09:09 | MHC.OFFVIS ---
Intake Vital Signs 10/01/23 09:09 Height 5 ft 8 in Weight 231 lb 7.766 oz BMI 35.2 BP 90/66 Blood Pressure Location Lt brachial Position Sitting Pulse 94 Intake Visit Reasons: 1 year follow up Intake Note: 1 year follow up w/ EKG [employer] Required: No Accompanied by: Self / Same As Patient Allergies hydrocodone Adverse Reaction (Unknown, Verified 10/01/23 09:13) cannot tolerate Medication List - Last Reconciled 10/01/23 by Min Vanegas MD allopurinol 300 mg PO DAILY amlodipine 10 mg PO DAILY aspirin 81 mg PO DAILY atorvastatin 80 mg PO DAILY carvedilol 18.75 mg (1.5 x 12.5 mg) PO BID colchicine Take 2 tabs once at the onset of gout attack. NS ezetimibe 10 mg PO DAILY furosemide 40 mg PO DAILY 90 days hydralazine 50 mg PO BID metformin 1,000 mg PO BID psyllium husk (Metamucil) 0.52 grams PO DAILY semaglutide (Ozempic) 0.25 mg subcut QWEEK sildenafil 100 mg PO DAILY PRN spironolactone 25 mg PO DAILY HPI HPI Comments History of Present Illness Details Giovanni returns for follow-up regarding coronary disease, bypass surgery as well as ischemic cardiomyopathy. In the past, due to symptoms of heart failure as well as low EF on echocardiogram, he underwent cardiac catheterization. This showed multivessel CAD, leading to bypass surgery. Overall, doing good. No specific complaints. It seems he is lost some weight recently and after that, blood pressure has also gone down. [facility] Medical History Gout Right bundle branch block JUAN C on CPAP Other and unspecified hyperlipidemia Essential hypertension Atherosclerotic cardiovascular disease Ischemic cardiomyopathy Surgical History History of cardiac catheterization History of coronary artery bypass graft (~06/2018) Family History Father No problems noted. Mother No problems noted. Social History Patient Tobacco Use Status: Former Tobacco user Years Smoked: Quit 3 years ago Review of Systems Const All systems reviewed & are unremarkable except as noted in HPI and below Reports as per HPI and Reports no additional complaints Eyes Reports as per HPI and Denies no additional complaints ENT Denies no additional complaints and Reports as per HPI Card Reports as per HPI, Reports no additional complaints, Denies acrocyanosis, Denies chest pain, Denies leg edema, Denies lightheadedness, Denies palpitations and Denies dyspnea Resp Reports as per HPI, Denies no additional complaints and Denies dyspnea GI Reports as per HPI and Denies no additional complaints Reports no additional complaints and Reports as per HPI Musc Reports no additional complaints and Reports as per HPI Skin/Breast Reports system reviewed and no additional complaints, except as documented Neuro Reports no additional complaints and Reports as per HPI Psych Reports no additional complaints and Reports as per HPI Endo Reports no additional complaints, Reports as per HPI and Denies palpitations Bryce/Lymph Reports no additional complaints and Reports as per HPI Aller/Immun Reports no additional complaints and Reports as per HPI Physical Exam Vital Signs: Last Vital Signs Pulse 94 10/01/23 09:09 BP 90/66 10/01/23 09:09 BMI result Body Mass Index 35.2 Const General: comfortable and no acute distress Orientation/consciousness: patient oriented x3 HEENT Other: Unremarkable Head: Yes normal to inspection Neck Neck: Yes normal visual inspection Chest Chest palpation & inspection: normal inspection of the chest Resp Auscultation: clear to auscultation bilaterally Cardio Palpation: normal PMI Heart sounds: S1 normal heart sound present, S2 normal heart sound present, no gallops, no murmurs and no rubs GI Palpation (GI): Soft to palpation Back/Spine/Pelvis Other: unremarkable Skin General skin exam: no rashes or lesions noted Neuro General: patient oriented x3 Extrem General: Yes normal to inspection Psych Mental Status: mental status grossly normal Office Procedures EKG Details: EKG with sinus rhythm at 94/Min; AL prolongation to 252 millisecond; right bundle-branch block pattern. Inferior as well as anterolateral T inversions but similar to prior EKG. [id number], Complete Assessment & Plan Assessment & Plan (1) Atherosclerotic cardiovascular disease: Code(s): I25.10 - Atherosclerotic heart disease of ute coronary artery without angina pectoris Plan: Cardiac catheterization with 3 vessel disease, chronic total occlusion of RCA. He is status post CABG. Right-sided PDA was very small and given lack of viability, not revascularized. Continue aspirin. Because of AL prolongation on the EKG, we may be able to cut back on beta-blockers in the future (2) Ischemic cardiomyopathy: Code(s): I25.5 - Ischemic cardiomyopathy Plan: Recovered EF. Clinically, no heart failure. Continue Lasix. (3) Essential hypertension: Code(s): I10 - Essential (primary) hypertension Plan: Blood pressure is on the lower side, which may be related to weight loss. He will stop his Hydralazine and monitor blood pressures. If it is still lowish, then probably cut back on the Carvedilol considering conduction system disease in the EKG. (4) Other and unspecified hyperlipidemia: Code(s): E78.5 - Hyperlipidemia, unspecified Plan: Continue statins and Zetia. Last LDL 32 mg/dL. (5) Right bundle branch block: Code(s): I45.10 - Unspecified right bundle-branch block Plan: He has first-degree heart block as well as right bundle-branch block. To be monitored for any progressive heart blocks. Coding Level of Care Code Est Pt Level 4 (23244) Diagnoses Atherosclerotic cardiovascular disease I25.10 Ischemic cardiomyopathy I25.5 Essential hypertension I10 Other and unspecified hyperlipidemia E78.5 Right bundle branch block I45.10 CPT Codes EKG - CPT: 96466-[id number], Complete ([id number])
== END 2023-10-01 09:30 | disposition home or self-care (01) ==
PROVIDERS: PCP Family Medicine; Visit Provider Internal Medicine
DX: I25.10 Atherosclerotic heart disease of native coronary artery without angina pectoris (principal); I25.5 Ischemic cardiomyopathy; I10 Essential (primary) hypertension; E78.5 Hyperlipidemia, unspecified; I45.10 Unspecified right bundle-branch block
CPT/HCPCS: 93010; 99214

== ENCOUNTER → 2023-10-01 09:05 | Outpatient (BNVA) | payer SELFPAY | PROVIDERS: Visit Provider Internal Medicine | DX: I25.10 Atherosclerotic heart disease of native coronary artery without angina pectoris (principal); I25.5 Ischemic cardiomyopathy; I10 Essential (primary) hypertension; I45.10 Unspecified right bundle-branch block; E78.5 Hyperlipidemia, unspecified; Z79.82 Long term (current) use of aspirin; Z79.899 Other long term (current) drug therapy; Z95.1 Presence of aortocoronary bypass graft | CPT/HCPCS: 93005 ==

== ENCOUNTER 2023-10-23 07:03 | Outpatient (REF) | payer MEDICARE, SELFPAY ==
[2023-10-23 07:17] LABS: MANUAL DIFF FLAG NO
[2023-10-23 07:45] LABS: Basophils Absolute Auto 0.1 X10*3/uL (0.0-0.2); Basophils Percent Auto 0.9 % (0-2); Eosinophils Absolute Auto 0.3 X10*3/uL (0.0-0.4); Eosinophils Percent Auto 2.4 % (0-4); Hematocrit 43.8 % (42.0-52.0); Hemoglobin 14.4 g/dl (14.0-18.0); Imm Gran Abs Auto 0.51 X10*3/uL (0.00-0.03); Lymphocytes Absolute Auto 2.4 X10*3/uL (1.2-4.9); Lymphocytes Percent Auto 18.9 % (20-40); Mean Corpuscular HGB Conc 32.9 g/dl (31.0-36.0); Mean Corpuscular Hemoglobin 29.2 pg (27.0-33.0); Mean Corpuscular Volume 88.8 fL (80.0-98.0); Mean Platelet Volume 11.6 fL (9.4-12.4); Monocytes Absolute Auto 1.3 X10*3/uL (0.1-1.2); Monocytes Percent Auto 9.8 % (2-11); Neutrophils Absolute Auto 8.2 x10*3/uL (2.0-8.3); Platelet Count 202 X10*3/uL (160-400); Red Blood Count 4.93 X10*6/uL (4.60-5.80); White Blood Count 12.8 X10*3/uL (4.8-10.8)
[2023-10-23 07:58] LABS: Estimated Average Glucose 114 mg/dL; Hemoglobin A1c % 5.6 % (<6.0)
[2023-10-23 08:22] LABS: Alanine Aminotransferase 31 U/L (0-40); Albumin Level 4.1 g/dL (3.5-5.0); Alkaline Phosphatase 86 U/L (39-117); Anion Gap 13 (12-20); Aspartate Amino Transferase 19 U/L (5-37); Bilirubin Total 0.7 mg/dL (0.0-1.0); Blood Urea Nitrogen 34 mg/dL (9-16); Calcium 9.6 mg/dL (8.4-10.2); Carbon Dioxide 24 mmol/L (22-29); Chloride 104 mmol/L (96-108); Cholesterol 87 mg/dL (<200); Estimated Glomerular Filt Rate 44; Glucose Random 102 mg/dL (60-115); HDL Cholesterol 20 mg/dL (>40); LDL Cholesterol Calculated 43 mg/dL (<100); Sodium 137 mmol/L (135-145); Total Protein 7.3 g/dL (6.5-8.0); Triglycerides 121 mg/dL (<150); Uric Acid 3.9 mg/dL (3.4-7.0)
[2023-10-23 08:34] LABS: Reflex LDLD? No
[2023-10-23 08:36] LABS: Prostate Specific Antigen 2.84 ng/mL (<0.05-4.0)
[2023-10-23 08:44] LABS: Free T4 (Free Thyroxine) 0.87 ng/dL (0.71-1.85); Thyroid Stimulating Hormone 2.51 uIU/mL (0.32-4.0)
== END 2023-10-23 07:04 | disposition home or self-care (01) ==
LOC: HO.LAB 07:03
PROVIDERS: PCP Family Medicine; Visit Provider Family Medicine
DX: E11.22 Type 2 diabetes mellitus with diabetic chronic kidney disease (principal); N18.30 Chronic kidney disease, stage 3 unspecified; E78.00 Pure hypercholesterolemia, unspecified; M11.20 Other chondrocalcinosis, unspecified site; N40.0 Benign prostatic hyperplasia without lower urinary tract symptoms; N52.9 Male erectile dysfunction, unspecified; Z12.5 Encounter for screening for malignant neoplasm of prostate
CPT/HCPCS: 36415; 80053; 80061; 83036; 84153; 84439; 84443; 84550; 85025

== ENCOUNTER 2023-12-16 07:09 | Outpatient (REF) | payer MEDICARE, SELFPAY ==
[2023-12-16 08:19] LABS: Alanine Aminotransferase 21 U/L (0-40); Alkaline Phosphatase 78 U/L (39-117); Anion Gap 12 (12-20); Aspartate Amino Transferase 18 U/L (5-37); Bilirubin Total 0.5 mg/dL (0.0-1.0); Blood Urea Nitrogen 50 mg/dL (9-16); Calcium 9.3 mg/dL (8.4-10.2); Carbon Dioxide 22 mmol/L (22-29); Chloride 110 mmol/L (96-108); Estimated Glomerular Filt Rate 34; Glucose Random 90 mg/dL (60-115); Potassium 4.3 mmol/L (3.3-5.1); Sodium 140 mmol/L (135-145); Total Protein 6.9 g/dL (6.5-8.0); Uric Acid 4.6 mg/dL (3.4-7.0)
== END 2023-12-16 07:10 | disposition home or self-care (01) ==
LOC: HO.LAB 07:09
PROVIDERS: PCP Family Medicine; Visit Provider Student in an Organized Health Care Education/Training Program
DX: M10.9 Gout, unspecified (principal)
CPT/HCPCS: 36415; 80053; 84550

== ENCOUNTER 2023-12-17 08:18 | Outpatient (AMB) | payer MEDICARE, SELFPAY ==
[2023-12-17 08:22] VITALS: BP 110/68; PULSE 89; O2SAT 96; BMI 31.5
--- NOTE | 2023-12-17 08:22 | MHC.OFFVIS ---
Vital Signs 12/17/23 08:22 Height 5 ft 8 in Weight 207 lb 7.28 oz BMI 31.5 BP 110/68 Blood Pressure Location Rt brachial Position Sitting Pulse 89 Pulse Source Pulse Oximeter Pulse Oximetry (%) 96 Oxygen Delivery Method Room Air Intake Visit Reasons: Gout/CM Allergies hydrocodone Adverse Reaction (Unknown, Verified 12/17/23 08:24) cannot tolerate Medication List - Last Reconciled 12/17/23 by Dafne Bradshaw MD allopurinol 300 mg PO DAILY amlodipine 10 mg PO DAILY aspirin 81 mg PO DAILY atorvastatin 80 mg PO DAILY carvedilol 18.75 mg (1.5 x 12.5 mg) PO BID colchicine Take 2 tabs once at the onset of gout attack. NS ezetimibe 10 mg PO DAILY furosemide 40 mg PO DAILY 90 days hydralazine 50 mg PO ONCE metformin 1,000 mg PO BID psyllium husk (Metamucil) 0.52 grams PO DAILY semaglutide (Ozempic) 0.25 mg subcut QWEEK sildenafil 100 mg PO DAILY PRN spironolactone 25 mg PO DAILY HPI Comments Details: 68-year-old male with gout returns for follow-up. On allopurinol 300 mg daily. Doing well overall with no gout flare-ups since last visit. No need to use any colchicine. He has lost significant weight since he was started on Ozempic about a year ago. Gets aches and pains from his regular arthritis in his neck, knees usually at the end of the day but overall doing well. Initial history: This is a 66-year-old male with a past medical history of hypertension, dyslipidemia, CAD s/p triple bypass, CKD who presents for evaluation of gout. The condition started in July of 2021 with left ankle pain and swelling, he went to urgent care and received colchicine with resolution of his symptoms. He had another flare on weekend with right big toe pain and swelling. He went to urgent care and received 1.2 mg of colchicine and referred to his PCP. Was on colchicine for about 1 week then he had a recurrence of his gout symptoms. He was prescribed a prednisone taper by his PCP 30 mg for 3 days followed by 20 mg for 3 days followed by 10 mg for 3 days with resolution of his symptoms, few days later symptoms came back. He was then referred to Rheumatology. Patient denies any history of kidney stones or family history of gout. Denies alcohol consumption. He has no other joint involvement. [facility] Medical History Gout Right bundle branch block JUAN C on CPAP Other and unspecified hyperlipidemia Essential hypertension Atherosclerotic cardiovascular disease Ischemic cardiomyopathy Surgical History History of cardiac catheterization History of coronary artery bypass graft (~06/2018) Family History Father No problems noted. Mother No problems noted. Social History Patient Tobacco Use Status: Former Tobacco user Years Smoked: Quit 3 years ago Review of Systems ENT Reports neck pain Musc Reports arthralgias, Denies joint swelling and Reports neck pain Physical Exam Vital Signs: Last Vital Signs Pulse 89 12/17/23 08:22 BP 110/68 12/17/23 08:22 Pulse Ox 96 12/17/23 08:22 Oxygen Delivery Method Room Air 12/17/23 08:22 BMI result Body Mass Index 31.5 Const General: cooperative, healthy appearing, comfortable and no acute distress Nutritional Appearance: obese morbidly obese Orientation/consciousness: patient oriented x3 Limitations: no limitations HEENT Head: Yes normocephalic and Yes atraumatic Resp Effort & Inspection: normal respiratory effort and able to speak in complete sentences Cardio Rate: regular rate Rhythm: regular rhythm Neuro General: patient oriented x3 Extrem Other: No synovitis today Mild osteoarthritic changes of hands No tophi on ears Assessment & Plan Assessment & Plan (1) Gout: Comment: Started with gout flares affecting ankles and feet, initial uric acid 10.8 Allopurinol and colchicine started 02/2022 Uric acid level at target 11/18 on allopurinol 300 mg daily. Regular Colchicine DC 12/19 Code(s): M10.9 - Gout, unspecified Category: Medical Qualifiers: Gout site: toe Gout etiology: due to renal impairment Chronicity: acute Laterality: right Qualified Code(s): M10.371 - Gout due to renal impairment, right ankle and foot Plan: This is a 68-year-old male with obesity, hypertension, CKD, dyslipidemia, CAD s/p triple bypass who presents for gout follow-up. On allopurinol 300 mg daily. Uric acid level at target 4.6 mg/dL. No gout flare-ups since last visit. Has not had to use any colchicine. Continue allopurinol 300 mg daily. Labs before next visit in 6 months Plan I spent 18 minutes reviewing patient's chart, evaluating patient, ordering diagnostic workup, counseling patient and documenting in the chart Orders: Orders Comprehensive Met. Panel 6 Months M10.371 - Gout due to renal impairment, right ankle and foot Uric Acid 6 Months M10.371 - Gout due to renal impairment, right ankle and foot Coding Level of Care Code Est Pt Level 3 (12933) Diagnoses Acute gout due to renal impairment involving toe of right foot M10.371 Gout site: toe Gout etiology: due to renal impairment Chronicity: acute Laterality: right
== END 2023-12-17 08:36 | disposition home or self-care (01) ==
PROVIDERS: PCP Family Medicine; Visit Provider Student in an Organized Health Care Education/Training Program
DX: M10.371 Gout due to renal impairment, right ankle and foot (principal)
CPT/HCPCS: 99213

== ENCOUNTER → 2023-12-17 08:18 | Outpatient (BNVA) | payer MEDICARE, SELFPAY | PROVIDERS: PCP Family Medicine; Visit Provider Student in an Organized Health Care Education/Training Program | DX: M10.371 Gout due to renal impairment, right ankle and foot (principal) | CPT/HCPCS: 99212 ==

== ENCOUNTER 2023-12-22 06:59 | Outpatient (REF) | payer MEDICARE, SELFPAY ==
[2023-12-22 07:42] LABS: Basophils Absolute Auto 0.1 X10*3/uL (0.0-0.2); Basophils Percent Auto 0.9 % (0-2); Eosinophils Absolute Auto 0.4 X10*3/uL (0.0-0.4); Eosinophils Percent Auto 2.7 % (0-4); Hematocrit 45.1 % (42.0-52.0); Hemoglobin 14.7 g/dl (14.0-18.0); Imm Gran Abs Auto 0.49 X10*3/uL (0.00-0.03); Imm Gran Pct Auto 3.8 % (0.0-0.4); Lymphocytes Absolute Auto 2.2 X10*3/uL (1.2-4.9); Lymphocytes Percent Auto 16.8 % (20-40); MANUAL DIFF FLAG SCAN; Mean Corpuscular HGB Conc 32.6 g/dl (31.0-36.0); Mean Corpuscular Hemoglobin 29.1 pg (27.0-33.0); Mean Corpuscular Volume 89.3 fL (80.0-98.0); Mean Platelet Volume 11.8 fL (9.4-12.4); Monocytes Absolute Auto 1.5 X10*3/uL (0.1-1.2); Monocytes Percent Auto 11.8 % (2-11); Neutrophils Absolute Auto 8.2 x10*3/uL (2.0-8.3); Platelet Count 189 X10*3/uL (160-400); Red Blood Count 5.05 X10*6/uL (4.60-5.80); Red Cell Distribution Width 14.9 % (11.0-16.0); SCAN SMEAR FLAG 1; White Blood Count 12.8 X10*3/uL (4.8-10.8)
[2023-12-22 07:52] LABS: Appearance Urine Clear; Color Urine Yellow; Glucose Urine UA Negative (Negative); Leukocyte Esterase Urine Negative (Negative); Nitrite Urine Negative (Negative); PH 5.5 (5.0-9.0); UMIC TRIGGER UA YES; Urine Blood Negative (Negative); Urine Ketones Negative (Negative); Urine Protein 30 (1+) mg/dL (Neg-Trace)
[2023-12-22 08:06] LABS: SLIDE REVIEW VERIFIED
[2023-12-22 08:08] LABS: Bacteria Urine None Seen (None Seen); RBC Urine 0-2 /HPF (0-2); Squamous Epithelial Cell Urine 0-2 /HPF (0-2); WBC Urine 0-5 /HPF (0-5)
[2023-12-22 08:11] LABS: Parathyroid Hormone Intact 195.9 pg/mL (8.7-77.1)
[2023-12-22 08:17] LABS: Protein/Creatinine Ratio, Ur 0.14 (<0.2); Total Protein Urine Random 26 mg/dL (<12)
[2023-12-22 08:19] LABS: Anion Gap 13 (12-20); Blood Urea Nitrogen 48 mg/dL (9-16); Calcium 9.5 mg/dL (8.4-10.2); Carbon Dioxide 23 mmol/L (22-29); Chloride 106 mmol/L (96-108); Estimated Glomerular Filt Rate 36; Magnesium 2.1 mg/dL (1.6-2.6); Phosphorus 4.3 mg/dL (2.7-4.5); Potassium 4.4 mmol/L (3.3-5.1); Sodium 138 mmol/L (135-145)
[2023-12-22 08:40] LABS: Vitamin D 25-OH Total 24.2 ng/mL (>30)
== END 2023-12-22 07:00 | disposition home or self-care (01) ==
LOC: HO.LAB 06:59
PROVIDERS: PCP Family Medicine; Visit Provider Internal Medicine Nephrology
DX: E11.22 Type 2 diabetes mellitus with diabetic chronic kidney disease (principal); N18.32 Chronic kidney disease, stage 3b; I50.9 Heart failure, unspecified; I13.0 Hypertensive heart and chronic kidney disease with heart failure and stage 1 through stage 4 chronic kidney disease, or unspecified chronic kidney disease
CPT/HCPCS: 36415; 80051; 81001; 82040; 82306; 82310; 82565; 82570; 83735; 83970; 84100; 84156; 84520; 85025

== ENCOUNTER 2024-02-16 06:00 | Outpatient (REF) | payer MEDICARE, SELFPAY ==
[2024-02-16 07:42] LABS: Parathyroid Hormone Intact 121.6 pg/mL (8.7-77.1)
[2024-02-16 07:51] LABS: Anion Gap 14 (12-20); Blood Urea Nitrogen 42 mg/dL (9-16); Calcium 9.4 mg/dL (8.4-10.2); Carbon Dioxide 21 mmol/L (22-29); Chloride 105 mmol/L (96-108); Estimated Glomerular Filt Rate 35; Potassium 4.3 mmol/L (3.3-5.1); Sodium 136 mmol/L (135-145)
== END 2024-02-16 06:01 | disposition home or self-care (01) ==
LOC: HO.LAB 06:00
PROVIDERS: PCP Family Medicine; Visit Provider Internal Medicine Nephrology
DX: I13.0 Hypertensive heart and chronic kidney disease with heart failure and stage 1 through stage 4 chronic kidney disease, or unspecified chronic kidney disease (principal); E11.22 Type 2 diabetes mellitus with diabetic chronic kidney disease; N18.32 Chronic kidney disease, stage 3b; I50.9 Heart failure, unspecified
CPT/HCPCS: 36415; 80051; 82306; 82310; 82565; 83970; 84520

== ENCOUNTER 2024-03-25 09:57 | Outpatient (REF) | payer MEDICARE, SELFPAY ==
[2024-03-25 10:22] LABS: Basophils Absolute Auto 0.1 X10*3/uL (0.0-0.2); Basophils Percent Auto 0.7 % (0-2); Eosinophils Absolute Auto 0.4 X10*3/uL (0.0-0.4); Eosinophils Percent Auto 3.3 % (0-4); Hematocrit 43.8 % (42.0-52.0); Hemoglobin 14.3 g/dl (14.0-18.0); Imm Gran Pct Auto 3.6 % (0.0-0.4); Lymphocytes Absolute Auto 1.7 X10*3/uL (1.2-4.9); Lymphocytes Percent Auto 14.9 % (20-40); MANUAL DIFF FLAG SCAN; Mean Corpuscular HGB Conc 32.6 g/dl (31.0-36.0); Mean Corpuscular Hemoglobin 29.1 pg (27.0-33.0); Mean Platelet Volume 10.7 fL (9.4-12.4); Monocytes Absolute Auto 1.8 X10*3/uL (0.1-1.2); Monocytes Percent Auto 16.2 % (2-11); Neutrophils Absolute Auto 6.9 x10*3/uL (2.0-8.3); Neutrophils Percent Auto 61.3 % (45-73); Platelet Count 171 X10*3/uL (160-400); Red Blood Count 4.92 X10*6/uL (4.60-5.80); Red Cell Distribution Width 15.5 % (11.0-16.0); SCAN SMEAR FLAG 1; White Blood Count 11.2 X10*3/uL (4.8-10.8)
[2024-03-25 10:36] LABS: Estimated Average Glucose 105 mg/dL; Hemoglobin A1c % 5.3 % (<6.0)
[2024-03-25 10:46] LABS: SLIDE REVIEW VERIFIED
[2024-03-25 11:29] LABS: Alanine Aminotransferase 23 U/L (0-40); Albumin Level 3.9 g/dL (3.5-5.0); Alkaline Phosphatase 86 U/L (39-117); Anion Gap 12 (12-20); Aspartate Amino Transferase 14 U/L (5-37); Bilirubin Total 0.9 mg/dL (0.0-1.0); Blood Urea Nitrogen 21 mg/dL (9-16); Calcium 9.3 mg/dL (8.4-10.2); Carbon Dioxide 23 mmol/L (22-29); Chloride 109 mmol/L (96-108); Cholesterol 92 mg/dL (<200); Estimated Glomerular Filt Rate 45; Glucose Random 91 mg/dL (60-115); HDL Cholesterol 22 mg/dL (>40); LDL Cholesterol Calculated 47 mg/dL (<100); Potassium 4.1 mmol/L (3.3-5.1); Sodium 140 mmol/L (135-145); Total Protein 6.9 g/dL (6.5-8.0); Triglycerides 115 mg/dL (<150)
[2024-03-25 11:44] LABS: Free T4 (Free Thyroxine) 0.86 ng/dL (0.71-1.85); Thyroid Stimulating Hormone 1.31 uIU/mL (0.32-4.0)
[2024-03-25 11:46] LABS: Prostate Specific Antigen 3.46 ng/mL (<0.05-4.0)
[2024-03-25 13:01] LABS: Reflex LDLD? No
== END 2024-03-25 09:58 | disposition home or self-care (01) ==
LOC: HO.LAB 09:57
PROVIDERS: PCP Family Medicine; Visit Provider Family Medicine
DX: M11.20 Other chondrocalcinosis, unspecified site (principal); Z12.5 Encounter for screening for malignant neoplasm of prostate; N40.0 Benign prostatic hyperplasia without lower urinary tract symptoms; N52.9 Male erectile dysfunction, unspecified; E11.22 Type 2 diabetes mellitus with diabetic chronic kidney disease; N18.30 Chronic kidney disease, stage 3 unspecified; E78.00 Pure hypercholesterolemia, unspecified
CPT/HCPCS: 36415; 80053; 80061; 83036; 84153; 84439; 84443; 84550; 85025

== ENCOUNTER 2024-06-13 07:49 | Outpatient (REF) | payer MEDICARE, SELFPAY ==
--- OUTSIDE RECORDS SUMMARY | 2024-06-13 07:53 | XMS_ITS ---
Author Name [facility] Organization Unknown History of Medication Use Medication Directions Dispensed Refills Start Date End Date Stat allopurinol (ZYLOPRIM) 100 MG tablet Take 3 tablets (300 mg total) by mouth daily. 03/30/2024 active ergocalciferol (VITAMIN D2) capsule 30123 units Take 1 capsule (50,000 Units total) by mouth every 30 (thirty) days. 03/30/2024 active ezetimibe (ZETIA) tablet 10 mg Take 1 tablet (10 mg total) by mouth daily. 11/01/2023 active carvedilol (COREG) 12.5 MG tablet TAKE 1.5 TABLETS (18.75 MG TOTAL) BY MOUTH 2 (TWO) TIMES A DAY WITH MEALS. 11/01/2023 active metFORMIN (GLUCOPHAGE) tablet 1000 mg Take 1 tablet (1,000 mg total) by mouth daily. 11/01/2023 aborted PREDNISONE, KARAN, PO Take by mouth as needed (gout flares). 11/01/2023 active spironolactone (ALDACTONE) tablet 25 mg Take 1 tablet (25 mg total) by mouth daily. 11/01/2023 active furosemide (LASIX) 40 MG tablet Take 1 tablet (40 mg total) by mouth daily. 11/01/2023 active allopurinol (ZYLOPRIM) 100 MG tablet TAKE 1/2 TAB BY MOUTH EVERY DAY FOR 4 WEEKS THEN TAKE 1 TABLET DAILY 11/01/2023 active amLODIPine (NORVASC) tablet 10 mg Take 1 tablet (10 mg total) by mouth daily. 11/01/2023 active psyllium (METAMUCIL) 0.52 g capsule Take 0.104 g by mouth. 11/01/2023 active atorvastatin (LIPITOR) tablet 80 mg Take 1 tablet (80 mg total) by mouth daily. 11/01/2023 active Semaglutide, 1 MG/DOSE, (Ozempic, 1 MG/DOSE,) 4 MG/3ML SOPN Inject 0.75 mL (1 mg total) under the skin once a week. 11/01/2023 active sildenafil (VIAGRA) 100 MG tablet as needed. 11/01/2023 active aspirin 81 MG EC tablet Take 1 tablet (81 mg total) by mouth. 11/01/2023 active Problems Problem Status Onset Date Problem Type Date of Resolution Source Anxiety active ProblemAct [facility] Elevated PSA active EncounterDiagnosisAct [facility] Coronary artery disease involving coronary bypass graft of [place] heart without angina pectoris active 2019-03-07 ProblemAct [facility] Mixed hyperlipidemia active EncounterDiagnosisA ct [facility]NEM[facility] Stage 3b chronic kidney disease (HCC) active EncounterDiagnosisAct [facility]NEM[facility] Hypertension active ProblemAct [facility] MG Depression active ProblemAct [facility] Allergic rhinitis active ProblemAct C TTHNEMG Sleep apnea active ProblemAct CTTHNEM G Colon cancer screening active EncounterDiagnosisAct CTTHNE MG Chronic gout without tophus, unspecified cause, unspecified site active EncounterDiagnosisAct CTTHNE MG Hypertensive heart and renal disease with (congestive) heart failure active 2020-09-13 ProblemAct [facility]NEM[facility] Type 2 diabetes mellitus without complication, without long-term current use of insulin (HCC) active EncounterDiagnosisAct CTTHN EMG Other fatigue active EncounterDiagnosisAct [facility] Immunizations Vaccine Date Source Lot Number Status RSV PreF3 (Arexvy) Adjuvant Reconstituted 0.5mL 60+ Yrs 04/22/2023 [facility] [id number] completed Covid-19 (iogyn) Dilution Required 06/21/2020 [facility] completed Influenza Quad (High Dose Fl uzone) 0.7mL >65Yrs (HD-IIV4) 04/02/2021 [facility] completed Covid-19 (iogyn) Dilution Required 05/20/2021 [facility] completed Pneumococcal Conjugate PCV20 06/05/2023 [facility] [id number] completed Covid-19 (Pfizer) Dilution Required 07/13/2020 [facility] completed Influenza Quad (Fluad) 0.5 mL >65Yrs (AIIV4) 04/22/2023 [facility] [id number] completed
[2024-06-13 08:59] LABS: Alanine Aminotransferase 21 U/L (0-40); Albumin Level 4.3 g/dL (3.5-5.0); Alkaline Phosphatase 94 U/L (39-117); Anion Gap 15 (12-20); Aspartate Amino Transferase 23 U/L (5-37); Bilirubin Total 0.9 mg/dL (0.0-1.0); Blood Urea Nitrogen 41 mg/dL (9-16); Calcium 9.5 mg/dL (8.4-10.2); Carbon Dioxide 22 mmol/L (22-29); Chloride 104 mmol/L (96-108); Estimated Glomerular Filt Rate 43; Glucose Random 91 mg/dL (60-115); Potassium 4.1 mmol/L (3.3-5.1); Sodium 137 mmol/L (135-145); Total Protein 7.5 g/dL (6.5-8.0); Uric Acid 4.1 mg/dL (3.4-7.0)
== END 2024-06-13 07:50 | disposition home or self-care (01) ==
LOC: HO.LAB 07:49
PROVIDERS: PCP Family Medicine; Referring Provider Family Medicine; Visit Provider Student in an Organized Health Care Education/Training Program
DX: M10.371 Gout due to renal impairment, right ankle and foot (principal)
CPT/HCPCS: 36415; 80053; 84550

== ENCOUNTER 2024-06-15 07:43 | Outpatient (AMB) | payer MEDICARE, SELFPAY ==
--- NOTE | 2024-06-15 07:55 | MHC.OFFVIS ---
Vital Signs 06/15/24 07:59 Height 5 ft 8 in Weight 195 lb 12.328 oz BMI 29.8 BP 112/60 Blood Pressure Location Rt brachial Position Sitting Pulse 86 Pulse Source Pulse Oximeter Pulse Oximetry (%) 97 Oxygen Delivery Method Room Air Intake Visit Reasons: Gout Intake Note: Patient presents for Gout. Allergies hydrocodone Adverse Reaction (Unknown, Verified 06/15/24 07:58) cannot tolerate Medication List - Last Reconciled 06/15/24 by Dafne Bradshaw MD allopurinol 300 mg PO DAILY amlodipine 10 mg PO DAILY aspirin 81 mg PO DAILY atorvastatin 80 mg PO DAILY carvedilol 18.75 mg (1.5 x 12.5 mg) PO BID colchicine Take 2 tabs once at the onset of gout attack. NS ezetimibe 10 mg PO DAILY furosemide 40 mg PO DAILY 90 days hydralazine 50 mg PO ONCE metformin 1,000 mg PO BID psyllium husk (Metamucil) 0.52 grams PO DAILY semaglutide (Ozempic) 0.25 mg subcut QWEEK sildenafil 100 mg PO DAILY PRN spironolactone 25 mg PO DAILY HPI Comments Details: 68-year-old male with gout returns for follow-up. On allopurinol 300 mg daily. Doing well overall with no gout flare-ups since last visit. No need to use any colchicine. He has lost significant weight since he was started on Ozempic about a year ago. Gets aches and pains from his osteo arthritis in his hands, usually with fine activity. He would take Tylenol once every 2 weeks. Initial history: This is a 66-year-old male with a past medical history of hypertension, dyslipidemia, CAD s/p triple bypass, CKD who presents for evaluation of gout. The condition started in July of 2021 with left ankle pain and swelling, he went to urgent care and received colchicine with resolution of his symptoms. He had another flare on weekend with right big toe pain and swelling. He went to urgent care and received 1.2 mg of colchicine and referred to his PCP. Was on colchicine for about 1 week then he had a recurrence of his gout symptoms. He was prescribed a prednisone taper by his PCP 30 mg for 3 days followed by 20 mg for 3 days followed by 10 mg for 3 days with resolution of his symptoms, few days later symptoms came back. He was then referred to Rheumatology. Patient denies any history of kidney stones or family history of gout. Denies alcohol consumption. He has no other joint involvement. [facility] Medical History Gout Right bundle branch block JUAN C on CPAP Other and unspecified hyperlipidemia Essential hypertension Atherosclerotic cardiovascular disease Ischemic cardiomyopathy Surgical History History of cardiac catheterization History of coronary artery bypass graft (~06/2018) Family History Father No problems noted. Mother No problems noted. Social History Patient Tobacco Use Status: Former Tobacco user Years Smoked: Quit 3 years ago Review of Systems [facility] Reports arthralgias and Denies joint swelling Physical Exam Vital Signs: Last Vital Signs Pulse 86 06/15/24 07:59 BP 112/60 06/15/24 07:59 Pulse Ox 97 06/15/24 07:59 Oxygen Delivery Method Room Air 06/15/24 07:59 BMI result Body Mass Index 29.8 Const General: cooperative, healthy appearing, comfortable and no acute distress Nutritional Appearance: obese morbidly obese Orientation/consciousness: patient oriented x3 Limitations: no limitations HEENT Head: Yes normocephalic and Yes atraumatic Resp Effort & Inspection: normal respiratory effort and able to speak in complete sentences Cardio Rate: regular rate Rhythm: regular rhythm Neuro General: patient oriented x3 Extrem Other: No synovitis today Mild osteoarthritic changes of hands No tophi on ears Assessment & Plan Assessment & Plan (1) Gout: Comment: Started with gout flares affecting ankles and feet, initial uric acid 10.8 Allopurinol and colchicine started 02/2022 Uric acid level at target 11/18 on allopurinol 300 mg daily. Regular Colchicine DC 12/19 Code(s): M10.9 - Gout, unspecified Category: Medical Qualifiers: Gout site: toe Gout etiology: due to renal impairment Chronicity: acute Laterality: right Qualified Code(s): M10.371 - Gout due to renal impairment, right ankle and foot Plan: This is a 68-year-old male with obesity, hypertension, CKD, dyslipidemia, CAD s/p triple bypass who presents for gout follow-up. On allopurinol 300 mg daily. Uric acid level at target 4.1 mg/dL. No gout flare-ups since last visit. Has not had to use any colchicine. Continue allopurinol 300 mg daily. Labs before next visit in 6 months Plan I spent 18 minutes reviewing patient's chart, evaluating patient, ordering diagnostic workup, counseling patient and documenting in the chart Orders: Orders Comprehensive Met. Panel 6 Months M10.371 - Gout due to renal impairment, right ankle and foot Uric Acid 6 Months M10.371 - Gout due to renal impairment, right ankle and foot Medications: Refilled allopurinol 300 mg PO DAILY 90 tabs 1RF Coding Level of Care Code Est Pt Level 3 (35651) Diagnoses Acute gout due to renal impairment involving toe of right foot M10.371 Gout site: toe Gout etiology: due to renal impairment Chronicity: acute Laterality: right
[2024-06-15 07:59] VITALS: BP 112/60; PULSE 86; O2SAT 97; BMI 29.8
== END 2024-06-15 08:35 | disposition home or self-care (01) ==
PROVIDERS: PCP Family Medicine; Visit Provider Student in an Organized Health Care Education/Training Program
DX: M10.371 Gout due to renal impairment, right ankle and foot (principal)
CPT/HCPCS: 99213

== ENCOUNTER → 2024-06-15 07:43 | Outpatient (BNVA) | payer MEDICARE, SELFPAY | PROVIDERS: PCP Family Medicine; Visit Provider Student in an Organized Health Care Education/Training Program | DX: M10.371 Gout due to renal impairment, right ankle and foot (principal) | CPT/HCPCS: 99212 ==

== ENCOUNTER 2024-06-15 08:40 | Outpatient (REF) | payer MEDICARE, SELFPAY ==
[2024-06-15 10:37] LABS: MANUAL DIFF FLAG NO
[2024-06-15 10:40] LABS: Basophils Absolute Auto 0.1 X10*3/uL (0.0-0.2); Basophils Percent Auto 0.7 % (0-2); Eosinophils Absolute Auto 0.3 X10*3/uL (0.0-0.4); Eosinophils Percent Auto 1.8 % (0-4); Hematocrit 44.4 % (42.0-52.0); Imm Gran Abs Auto 0.29 X10*3/uL (0.00-0.03); Imm Gran Pct Auto 2.1 % (0.0-0.4); Lymphocytes Percent Auto 14.9 % (20-40); Mean Corpuscular HGB Conc 33.8 g/dl (31.0-36.0); Mean Corpuscular Hemoglobin 29.5 pg (27.0-33.0); Mean Corpuscular Volume 87.4 fL (80.0-98.0); Mean Platelet Volume 11.3 fL (9.4-12.4); Monocytes Absolute Auto 1.5 X10*3/uL (0.1-1.2); Neutrophils Absolute Auto 9.4 x10*3/uL (2.0-8.3); Neutrophils Percent Auto 69.5 % (45-73); Platelet Count 209 X10*3/uL (160-400); Red Blood Count 5.08 X10*6/uL (4.60-5.80); White Blood Count 13.6 X10*3/uL (4.8-10.8)
[2024-06-15 10:47] LABS: Estimated Average Glucose 105 mg/dL; Hemoglobin A1c % 5.3 % (<6.0); Total Hemoglobin (HGBA1C) 3793.3251 umol/L
[2024-06-15 10:55] LABS: Cholesterol 83 mg/dL (<200); HDL Cholesterol 23 mg/dL (>40); LDL Cholesterol Calculated 44 mg/dL (<100); Triglycerides 84 mg/dL (<150); Uric Acid 3.8 mg/dL (3.4-7.0)
[2024-06-15 11:10] LABS: Prostate Specific Antigen 3.21 ng/mL (<0.05-4.0)
[2024-06-15 11:12] LABS: Free T4 (Free Thyroxine) 0.93 ng/dL (0.71-1.85); Thyroid Stimulating Hormone 2.33 uIU/mL (0.32-4.0)
[2024-06-15 11:33] LABS: Reflex LDLD? No
[2024-06-16 09:23] LABS: Sex Hormone Binding Globulin 34 nmol/L (22-77)
[2024-06-21 07:29] LABS: Testosterone, Free 34.6 pg/mL (35.0-155.0); Testosterone, Total 234 ng/dL (250-1100)
== END 2024-06-15 08:41 | disposition home or self-care (01) ==
LOC: HO.10HDL 08:40
PROVIDERS: Visit Provider Family Medicine
DX: R53.83 Other fatigue (principal); Z12.5 Encounter for screening for malignant neoplasm of prostate; I13.0 Hypertensive heart and chronic kidney disease with heart failure and stage 1 through stage 4 chronic kidney disease, or unspecified chronic kidney disease; E11.9 Type 2 diabetes mellitus without complications
CPT/HCPCS: 36415; 80061; 83036; 84153; 84270; 84402; 84403; 84439; 84443; 84550; 85025

== ENCOUNTER 2024-07-27 11:54 | Day surgery (SDC) | payer MEDICARE, SELFPAY ==
--- OUTSIDE RECORDS SUMMARY | 2024-07-08 11:25 | XMS_ITS | Patient Health Record ---
Author Organization [facility] Address [address] [place] [id number] Care Team Providers Care Hand Screen Printer Name Role Phone Camilo Hayward D.O. Primary Care Provider Unavail able Daron Mcfadden Taj Unavailable [phone] ALLERGIES No Known Allergies REASON FOR REFERRAL No Information MEDICATIONS Medication SIG (Take, Route, Frequency, Duration) Notes Start Date End Date Status Turmeric Active Aspirin 81 Active metFORMIN HCl 1000 MG Oral for 90 Active Allopurinol 300 MG Oral for 90 Active Vitamin D (Ergocalciferol) 1.25 MG (84280 UT) TAKE 1 CAPSULE (50,000 UNITS TOTAL) BY MOUTH EVERY 30 DAYS Oral for 90 Active Atorvastatin Calcium 80 MG TAKE 1 TABLET BY MOUTH EVERY DAY Oral for 90 Active Carvedilol 12.5 MG TAKE 1.5 TABLETS (18 .75 MG TOTAL) BY MOUTH 2 (TWO) TIMES A DAY WITH MEALS. Oral for 90 Active amLODIPine Besylate 10 MG TAKE 1 TABLET BY MOUTH EVERY DAY Oral for 90 Active Ozempic (1 MG/DOSE) 4 MG/3ML Subcutaneous for 84 Active Ezetimibe 10 MG Oral for 90 Ac tive Furosemide 40 MG Oral for 90 A ctive SOCIAL HISTORY Tobacco Use: Social History Observation Description Date Details (start date - stop date) Former Smoker NA - NA Sex Assigned At : Social History Observation Description Sex Assigned At Unknown Tobacco Use/Smoking Question Answer Notes Patient is a former smoker How long has it been since you last smoked? 5-10 years Alcohol Screen Question Answer Notes Did you have a drink containing alcohol in the p ast year? No Points 0 Interpretation Negative PROBLEMS Problem Type ICD Code Onset Dates Problem Status W/U Status Risk SNOMED Code Notes Problem Nausea and vomiting, unspecified vomiting type (R11.2) Active confirmed 51341774 Problem Gastroesophageal reflux disease without esophagitis (K21.9) Active confirmed 361445202 Problem Colon cancer screening (Z12.11) Active confirmed 719937637 VITAL SIGNS Blood pressure diastolic 00 mm Hg 07/07/2024 Height 5 ft 9 in in 07/07/2024 Blood pressure systolic 00 mm Hg 07/07/2024 Weight 197 lbs 07/07/2024 BMI 29.09 kg/m2 07/07/2024 Encounters Encounter Location Date Provider Diagnosis [facility] [address] [place] [address] 07/07/2024 Taj Neri Jr Nausea and vomiting, unspecified vomiting type R11.2 ; Gastroesophageal reflux disease without esophagitis K21.9 and Colon cancer screening Z12.11 ASSESSMENTS Encounter Date Diagnosis Assessment Notes Treatment Notes Treatment Clinical Notes 07/07/2024 Gastroesophageal ref lux disease without esophagitis (ICD-10 - K21.9) 07/07/2024 Nausea and vomiting, unspecified vomiting type (ICD-10 - R11.2) 07/07/2024 Colon cancer screeni ng (ICD-10 - Z12.11) PLAN OF TREATMENT Future Test Test Name Order Date UPPER GI ENDOSCOPY 07/07/2024 COLONOSCOPY 07/07/2024 Next Appt Details Provider Name:Taj marti Jr, 07/27/2024 01:00:00 PM, [address] [place] [address] , [place], [place], [phone], Insurance Providers Payer Name Payer Address Payer Phone Subscriber Number Group Number Insured Name Patient Relationship to Insured Coverage Start Date Coverage End Date [facility] [address] [place] [phone] [id number] SANTI HERNANDEZ Self - patient is the insured MEDICAL (GENERAL) HISTORY Medical History History ICD Code hypertension allergic rhinitis type II diabetes hx of PA / triple bypass 5 yrs ago hx of Gout kidney ds - dr. hawkins Surgical History Surgery Date(Month/Year) tonsillectomy and adenoidectomy spinal surgery triple bypass
--- OUTSIDE RECORDS SUMMARY | 2024-07-08 11:25 | XMS_ITS ---
Author Organization [facility] Address [address] [place] [address] Care Team Providers Care Scalloper Name Role Phone Camilo Hayward D.O. Primary Care Provider Unavail able Taj Neri Jr Unavailable ALLERGIES No Known Allergies REASON FOR VISIT Patient presents today for a colon screening MEDICATIONS Medication SIG (Take, Route, Frequency, Duration) Notes Start Date End Date Status Turmeric Active metFORMIN HCl 1000 MG Oral for 90 Active Allopurinol 300 MG Oral for 90 Active Vitamin D (Ergocalciferol) 1.25 MG (97314 UT) TAKE 1 CAPSULE (50,000 UNITS TOTAL) BY MOUTH EVERY 30 DAYS Oral for 90 Active Atorvastatin Calcium 80 MG TAKE 1 TABLET BY MOUTH EVERY DAY Oral for 90 Active Aspirin 81 Active amLODIPine Besylate 10 MG TAKE 1 TABLET BY MOUTH EVERY DAY Oral for 90 Active Ozempic (1 MG/DOSE) 4 MG/3ML Subcutaneous for 84 Active Ezetimibe 10 MG Oral for 90 Ac tive Furosemide 40 MG Oral for 90 A ctive Carvedilol 12.5 MG TAKE 1.5 TABLETS (18 .75 MG TOTAL) BY MOUTH 2 (TWO) TIMES A DAY WITH MEALS. Oral for 90 Active SOCIAL HISTORY Tobacco Use: Social History Observation [...] vomiting, unspecified vomiting type (R11.2) Active confirmed [id number] Problem Gastroesophageal reflux disease without esophagitis (K21.9) Active confirmed 487147925 Problem Colon cancer screening (Z12.11) Active confirmed [id number] VITAL SIGNS BMI 29.09 kg/m2 07/07/2024 Blood pressure systolic 00 mm Hg 07/07/19 25 Blood pressure diastolic 00 mm Hg 025 Height 5 ft 9 in in 07/07/2024 Weight 197 lbs 07/07/2024 Encounters Encounter Location Date Provider Diagnosis [facility] [address] [place] [address] 07/07/2024 Taj Neri Jr Nausea and vomiting, unspecified vomiting type R11.2 ; Gastroesophageal reflux disease without esophagitis K21.9 and Colon cancer screening Z12.11 ASSESSMENTS Encounter Date Diagnosis Assessment Notes Treatment Notes Treatment Clinical Notes 07/07/2024 Nausea and vomiting, unspecified vomiting type (ICD-10 - R11.2) 07/07/2024 Gastroesophageal ref lux disease without esophagitis (ICD-10 - K21.9) 07/07/2024 Colon cancer screeni ng (ICD-10 - Z12.11) PLAN OF TREATMENT Future Test Test Name Order Date UPPER GI ENDOSCOPY 07/07/2024 COLONOSCOPY 07/07/2024 Next Appt Details Provider Name:Taj marti Jr, 07/27/2024 01:00:00 PM, [address] [place] [address] , [place], [place], [phone],
[2024-07-25 14:20] VITALS: BMI 29.1
--- NOTE | 2024-07-26 08:31 | P.CONAN_ITS ---
Documented by User: Flores Purvis NP 07/26/24 08:38 HPI - Anesthesia Eval Consult details Narrative: 69yo M for Upper Endoscopy and Colonoscopy Follows [facility] Cardiology for CAD s/p CABG 2018, ischemic CMP (recovered EF). Stable at 09/2023 office visit, euvolemic. Anesthesia Pre-Procedure Meds Is the patient on any of the following meds?: GLP1/DPP4 PMFSH Active Problems Active Problems: All Active Problems Bilateral primary osteoarthritis of knee (Acute) Obesity (Acute) Gout (Acute) Right bundle branch block (Acute) JUAN C on CPAP (Acute) Other and unspecified hyperlipidemia (Acute) Essential hypertension (Acute) Atherosclerotic cardiovascular disease (Acute) Ischemic cardiomyopathy (Acute) Past Medical History Medical History (Updated 07/27/24 @ 12:36 by Cheryl Campo RN) Myocardial infarct Carpal tunnel syndrome Gout Right bundle branch block JUAN C on CPAP Other and unspecified hyperlipidemia Essential hypertension Atherosclerotic cardiovascular disease Ischemic cardiomyopathy Family History Family History Father No problems noted. Mother No problems noted. Surgical History Surgical History (Updated 07/27/24 @ 12:35 by Cheryl Campo RN) History of tonsillectomy History of knee surgery H/O microdiscectomy History of cardiac catheterization History of coronary artery bypass graft (~06/2018) Social History Social History Patient Tobacco Use Status: Former Tobacco user Years Smoked: Quit 3 years ago Use of substances other than those prescribed or required for medical reasons: Yes Substance Use Type Other:: medical for sleep Advance Directives: No Advance Directives Information Provided: Yes Nutrition Risks: No Nutritional Risk Poor oral hygiene: No Meds Allergies Allergy/AdvReac Type Severity Reaction Status Date / Time Sulfa (Sulfonamide AdvReac Mild Nausea Verified 07/27/24 12:33 Antibiotics) hydrocodone AdvReac Unknown Nausea Verified 07/27/24 12:33 Home Medications ?Medication ?Instructions ?Recorded ?Confirmed ?Last Taken ?Type aspirin 81 mg tablet,delayed 81 mg PO DAILY 09/04/20 07/25/24 Unknown History release spironolactone 25 mg tablet 25 mg PO DAILY 09/04/20 07/25/24 Unknown History metformin 1,000 mg tablet 1,000 mg PO BID 09/11/22 07/25/24 Unknown History sildenafil 100 mg tablet 100 mg PO DAILY PRN Erectile 03/23/23 07/25/24 Unknown History Dysfunction semaglutide 0.25 mg or 0.5 mg (2 0.25 mg subcut QWEEK 03/31/23 07/25/24 07/11/24 History mg/3 mL) subcutaneous pen injector (Ozempic) psyllium 1 tsp PO DAILY 07/25/24 07/25/24 Unknown History Exam Height,Weight and Vital Signs: Height 5 ft 9 in Weight 89.358 kg Narrative Narrative: EKG 09/2023 Details: EKG with sinus rhythm at 94/Min; WV prolongation to 252 millisecond; right bundle-branch block pattern. Inferior as well as anterolateral T inversions but similar to prior EKG. ECHO 2020 Conclusions: - The left ventricular systolic function is normal. The visually estimated ejection fraction is between 55-60%. - There is moderately increased left ventricular wall thickness. - There is moderately decreased right ventricular systolic function. - The basal inferior segment is hypokinetic. - The left atrium is moderately dilated. - No obvious valvular pathology seen on this study. Cardiac catheterization (prior to 2020) with 3 vessel disease, chronic total occlusion of RCA. He is status post CABG. Right-sided PDA was very small and given lack of viability, not revascularized. Continue aspirin. Assessment and Plan Assessment Anesthesia Assessment: Chart Reviewed Documented by User: Javier Power MD 07/27/24 12:53 [facility] Past Medical History Medical History (Updated 07/27/24 @ 12:36 by Cheryl Campo RN) Myocardial infarct Carpal tunnel syndrome Gout Right bundle branch block JUAN C on CPAP Other and unspecified hyperlipidemia Essential hypertension Atherosclerotic cardiovascular disease Ischemic cardiomyopathy Family History Family History Father No problems noted. Mother No problems noted. Family history of problems with anesthesia: No Surgical History Surgical History (Updated 07/27/24 @ 12:35 by Cheryl Campo RN) History of tonsillectomy History of knee surgery H/O microdiscectomy History of cardiac catheterization History of coronary artery bypass graft (~06/2018) History of Problems with Anesthesia: No Social History Social History Patient Tobacco Use Status: Former Tobacco user Years Smoked: Quit 3 years ago Use of substances other than those prescribed or required for medical reasons: Yes Substance Use Type Other:: medical for sleep Advance Directives: No Advance Directives Information Provided: Yes Nutrition Risks: No Nutritional Risk Poor oral hygiene: No Meds Allergies Allergy/AdvReac Type Severity Reaction Status Date / Time Sulfa (Sulfonamide AdvReac Mild Nausea Verified 07/27/24 12:33 Antibiotics) hydrocodone AdvReac Unknown Nausea Verified 07/27/24 12:33 Home Medications ?Medication ?Instructions ?Recorded ?Confirmed ?Last Taken ?Type aspirin 81 mg tablet,delayed 81 mg PO DAILY 09/04/20 07/25/24 Unknown History release spironolactone 25 mg tablet 25 mg PO DAILY 09/04/20 07/25/24 Unknown History metformin 1,000 mg tablet 1,000 mg PO BID 09/11/22 07/25/24 Unknown History sildenafil 100 mg tablet 100 mg PO DAILY PRN Erectile 03/23/23 07/25/24 Unknown History Dysfunction semaglutide 0.25 mg or 0.5 mg (2 0.25 mg subcut QWEEK 03/31/23 07/25/24 07/11/24 History mg/3 mL) subcutaneous pen injector (Ozempic) psyllium 1 tsp PO DAILY 07/25/24 07/25/24 Unknown History Exam Airway Mallampati Class: I TM Dist: >3cm Neck ROM: Full Loose/Missing/Broken Teeth: No Heart: ok. see above. Lungs: ok Assessment and Plan Assessment Anesthesia Assessment: Anesthesia Plan Discussed Final Anesthetic Review Family History of Problems with Anesthesia: No History of Problems with Anesthesia: No NPO: Yes ASA Class: III Final Preanesthetic Review: No Changes in Pt Med Stat, Meds/Allgs Chart Reviewed, Consent Obtained/Reviewed and Anes Risks/Benef Reviewed Patient Risk: High Procedure Risk: Intermediate Anesthetic Plan Anesthetic Plan: Agree w/ Assess. and Plan and TIVA Disposition: Standard PACU
[2024-07-27 12:37] VITALS: BMI 28.8
[2024-07-27] MEDS: Lactated Ringers 1,000 ML 100 ML IVCONT (12:58)
--- NOTE | 2024-07-27 13:01 | MHC.SHP ---
Pre-Procedural Eval Section A - 24 Hr Update-Section A only Date of Service: 07/27/24 The patient is an INPATIENT: No Changes since office visit: No Cold of Flu in the past 2 weeks, No New Medical Problems, No Changes in Medication and No Patient answered all questions The patient has been examined within 24 hours of the surgical procedure. The History & Physical has been completed within 30 days and I have reviewed it.: Yes Section B - Complete if H&P > 30 days Chief Complaint: gerd,screeening,nausea/vomiting Allergies: Allergies Allergy/AdvReac Type Severity Reaction Status Date / Time Sulfa (Sulfonamide AdvReac Mild Nausea Verified 07/27/24 12:33 Antibiotics) hydrocodone AdvReac Unknown Nausea Verified 07/27/24 12:33 Plan I have reviewed the history and physical and performed a pertinent physical examination on my patient. No changes have occurred unless specified. Time Spent With Patient Time: Total time managing care of this patient today ____ minutes.
[2024-07-27 13:06] LABS: Glucose, Whole Blood 95 mg/dL (60-115)
[2024-07-27 13:54] VITALS: BP 94/61; PULSE 72; RESP 17; TEMP 36.1; O2SAT 94
[2024-07-27 14:09] VITALS: BP 94/61; PULSE 71; RESP 18; O2SAT 98
--- NOTE | 2024-07-27 14:14 | OP_ITS ---
DATE OF SERVICE: 07/27/2024 SURGEON: Taj Neri MD INDICATIONS: 1. Nausea and vomiting. 2. Gastroesophageal reflux disease. 3. Colon cancer screening. PREOPERATIVE DIAGNOSIS: POSTOPERATIVE DIAGNOSIS: PROCEDURE PERFORMED: Upper endoscopy with biopsy, colonoscopy to the terminal ileum with biopsy and snare polypectomy. ESTIMATED BLOOD LOSS: COMPLICATIONS: ANESTHESIA: Monitored anesthesia care. ASSISTANTS: SPECIMENS: DESCRIPTION OF PROCEDURE: A history and physical was performed. The risks and benefits of the procedure were explained to the patient and informed consent was obtained. The patient was placed in the left lateral decubitus position. The Olympus video gastroscope was introduced into the esophagus, stomach, and duodenum. Examination was performed and the scope was removed. He was repositioned for colonoscopy. Digital rectal exam was performed and was found to be normal. The Olympus pediatric video colonoscope was introduced into the rectum and advanced to the cecum. The cecum was identified by transillumination, palpation, and identification of ileocecal valve. Examination was performed and the scope was removed. He tolerated both procedures well and was returned to recovery area in stable condition. FINDINGS: Upper endoscopy, esophagus: There was erosive esophagitis over the last 3 cm of the esophagus. There was no bleeding. There was a small hiatal hernia. Stomach: The stomach showed focal areas of erythema consistent with gastritis. Biopsies were obtained from the antrum to evaluate for H pylori. Duodenum: The bulb and 2nd portion were normal. Colonoscopy: The terminal ileum was not examined. The visualized colonic mucosa was normal. The quality of the prep was good. Multiple polyps were present and removed using a combination of biopsy forceps and snare. Two polyps were located at 80 cm, 1 at 70 cm, 1 at 40 cm, and 3 in the rectum. All polyps measured less than 10 mm. There was mild sigmoid diverticulosis. Retroflexed examination was otherwise normal. IMPRESSION: 1. Erosive esophagitis. 2. Gastritis. 3. Colon polyps. RECOMMENDATION: Follow up the biopsy results. MD ALFONZO Trevizo/MACI / [id number]
[2024-07-27 14:18] LABS: Glucose, Whole Blood 88 mg/dL (60-115)
--- OUTSIDE RECORDS SUMMARY | 2024-07-27 14:20 | XMS_ITS | Encounter Summary ---
Author Organization [facility] Address [address] [place] [phone] Phone Care Team Providers Care Cosmetic Sales Assistant Name Role Phone Heidi Hernandez YAZ Primary Care Provider [phone] Reason for Visit * Reason Comments Stage 3b chronic kidney disease Encounter Details Date Type Department Care Team (Late st Contact Info) Description 06/27/2024 3:15 PM EST [facility] Visit [facility] [address] [place] [address] Fer Leigh MD [address] [address] Stage 3b chronic kidney disease (HCC) (Primary Dx); Type 2 diabetes mellitus with diabetic chronic kidney disease (HCC); Hypertension Social History Tobacco Use Types Packs/Day Years Used Date Smoking Tobacco: Former Cigarettes Q uit: 06/01/2017 Smokeless Tobacco: Former Comments:Smoking History Inf o:Every day Alcohol Use Standard Drinks/Week Comments No 0 (1 standard drink = 0.6 oz pur e alcohol) Sex and Gender Information Value Date Recorded Sex Assigned at Not on file Legal Sex Male 5:14 PM EST Gender Identity Not on file Sexual Orientation Not on file documented as of this encounter Last Filed Vital Signs Vital Sign Reading Time Taken Comments Blood Pressure 110/60 06/27/2024 3:08 PM EST Pulse - - Temperature - - Respiratory Rate - - Oxygen Saturation - - Inhaled Oxygen Concentration - - Weight 79.4 kg (175 lb) 06/27/2024 3:08 PM EST Height - - Body Mass Index 25.11 10/30/2022 4:25 PM EDT documented in this encounter Patient Instructions * Patient Instructions* Fer Leigh MD - 06/27/2024 3:15 PM EST No NSAIDS - Do not take non-steroidal anti-inflammatory medications (NSAIDS) such as Ibuprofen (Advil, Motrin, etc), Naproxen (Aleve, etc), Celecoxib (Celebrex) or Ketoprofen. These common arthritis medications can cause permanent kidney damage or worsen your kidney damage. For mild occasional pain, Acetaminophen (Tylenol, etc) is safe for your kidneys. Sodium and Your CKD Diet: How to Spice Up Your Cooking What is sodium? Sodium is a mineral found naturally in foods and is the major part of table salt. What are the effects of eating too much sodium? When your kidneys are not healthy, extra sodium and fluid build up in your body. This can cause swollen ankles, puffiness, a rise in blood pressure, shortness of breath, and/or fluid around your heart and lungs. See the following table for suggestions on how to reduce sodium in your diet. LIMIT THE [AMOUNT OF... FOOD TO LIMIT BECAUSE OF THEIR HIGH SODIUM CONTENT ACCEPTABLE SUBSTITUTES SALT & SALT SEASONINGS Table salt Seasoning salt Garlic salt Onion salt Celery salt Lemon pepper Lite salt Meat tenderizer Bouillon cubes Flavor enhancers Fresh garlic, fresh onion, garlic powder, onion powder, black [pepper, lemon juice, low-sodium/salt-free seasoning blends, vinegar SALTY FOODS Barbecue sauce Steak sauce Soy sauce Teriaky sauce Oyster sauce Salted Snacks such as Crackers Potato chips Kirby chips Pretzels Tortilla chips Nuts Popcorn Taylor seeds Homemade or low- sodium sauces and salad dressings; Vinegar, dry mustard, unsalted popcorn, pretzels, tortilla or corn chips Cured Foods Ham Salt pork Hameed Sauerkraut Pickles, pickle relish Lox & Andino Olives Fresh beef, veal, pork, poultry, fish, eggs [place] ME[employer] Hot Dogs Cold cuts, deli meats Pastrami Sausage Corned beef Spam Low-salt deli meats PROCESSED FOODS Buttermilk Cheese Canned: Soups Tomato products Vegetable juices Canned vegetables Convenience Foods such as: TV Dinners Canned raviolis [place] Macaroni & Cheese Spaghetti Frozen prepared foods Fast foods Natural cheese (1-2 oz Per week) Homemade or kimmy,1- sodium soups, canned food without added salt Homemade casseroles without added salt, made with fresh or raw vegetables, fresh meat, jennie, pasta, or unsalted canned vegetables Some salt or sodium is needed for body water balance. But when your kidneys lose the ability to control sodium and water balance, you may experience the following: thirst fluid gain high blood pressure discomfort during dialysis By using less sodium in your diet, you can control these problems. Hints to keep your sodium intake down Cook with herbs and spices instead of salt. (Refer to Spice Up Your Cooking section for further suggestions.) Read food labels and choose those foods low in sodium. Avoid salt substitutes and specialty low-sodium foods made with salt substitutes because they are high in potassium. When eating out, ask for meat or fish without salt. Ask for gravy or sauce on the side; these may contain large amounts of salt and should be used in small amounts . Limit use of canned, processed and frozen foods. Some information about reading labels Understanding the terms: Sodium Free - Only a trivial amount of sodium per serving. Very Low Sodium - 35 mg or less per serving. Low Sodium - 140 mg or less per serving. Reduced Sodium - Foods in which the level of sodium is reduced by 25%. Light or Lite in Sodium - Foods in which the sodium is reduced by at least 50% . Simple rule of thumb : If salt is listed in the first five ingredients, the item is probably too high in sodium to use. All food labels now have milligrams (mg) of sodium listed. Follow these steps when reading the sodiwn information on the label: 1. Know how much sodium you are allowed each day. Remember that there are 1000 milligrams (mg) in 1gram. For [id number], if your diet prescription is 2 grams of sodium , your limit is 2000 milligrams per day. Consider the sodium value or other food to be eaten during the day. 2. Look at the package label. Check the serving size. Nutrition values are expressed per nany g. How does this compare to your total daily allowance? If the sodium level is 500 mg or more per serving, the item is not a good choice. 3. Compare labels of similar products. Select the lowest sodium level for the same serving size. How to Spice Up Your Cooking Giving up salt does not mean giving up flavor. Learn to season your food with herbs and spices. Be creative and experiment for a new and exciting flavor. What kinds of spices and herbs should I use instead of salt to add flavor? Try the following spices with the foods listed. Allspice: Use with beef, fish, beets, cabbage, canots, peas, fruit. Basil: Use with beef, pork, most vegetables. [place]: Use with beef, pork, most vegetables. Shannon: Use with beef, pork, green beans, cauliflower, cabbage, beets, asparagus, and in dips and marinades. Cardamom: Use with fruit and in baked goods. Randall: Use with beef, chicken, pork, fish, green beans, carrots and in marinades. Dill: Use with beef, chicken, green beans, cabbage, carrots, peas and in dips. Edith: Use with beef, chicken, pork, green beans, cauliflower and eggplant. Marjoram: Use with beef, chicken, pork, green beans, cauliflower and eggplant. Shannon: Use with chicken, pork, cauliflower, peas and in marinades. Thyme: Use with beef, chicken, pork, fish, green beans, beets and carrots. Elliot: Use with chicken, pork, eggplant and in dressing. Tarragon: Use with fish, chicken, asparagus, beets, cabbage, cauliflower and in marinades. Tips for cooking with herbs and spices Purchase spices and herbs in small amounts . When they sit on the shelf for years they lose their flavor. Use no more than ?? teaspoon of dried spice (?? of fresh) per pound of meat. Add ground spices to food about 15 minutes before the end of the cooking period. Add whole spices to food at least one hour before the end of the cooking period. Combine herbs with oil or butter, set for 30 minutes to bring out their flavor, then brush on foodswhile they cook, or brush meat with oil and sprinkle herbs one hour before coolcing. Crush dried herbs before adding to foods. Can I use salt substitutes? Caution! If you are told to limit potassium in your diet, be very cautious about using salt substitutes because most of them contain some form of potassium. Check with your doctor or dietitian beforeusing and salt substitute. [place] and create your own seasoning containing those spices that you like. If you would like to become a volunteer and find out more about what's happening where you live, contact your local [facility] Affiliate. Blood pressure monitoring education: Monitor home blood pressure values after sitting for 5 minutes with back and arm support. Keep a log. Bring your log and blood pressure cuff to your next visit. documented in this encounter Progress Notes * Fer Leigh MD - 06/27/2024 3:15 PM EST Images from the original note were not included. Patient Name: Giovanni Sanders, Male Date of : 1955, 68 y.o. Date: 06/27/24 [] New Patient [x] Established Patient [] New Hospital Follow Up [] Established Hospital Follow Up [] Telemed Visit [] H&P Referring MD: No primary care provider on file. PCP: Heidi Hernandez FNP Reason For Visit: CKD 3, DM, HTN Giovanni Sanders is a 68 y.o. male seen today in f/u re: CKD 3 in setting of DM and HTN. Overall doing well No futher gout attacks. BP doing well and now off hydralazine. Meds reveiwed--presnetly not on [id number] as cost was too high but cont on ozempic WT stable 175 Denies chest pain or shortness of breath. No blood in the urine or difficulties urinating. Complains of mild arthritic complaints but avoids use of NSAIDs. Denies chest pain or shortness of breath. No blood in the urine or difficulties urinating. Complains of mild arthritic complaints but avoids use of NSAIDs. The following portions of the patient's chart were reviewed in this encounter and updated as appropriate: Allergies Meds Problems Med Hx Surg Hx Fam Hx Constitutional: Negative for chills and fever. Respiratory: Negative for cough and shortness of breath. Cardiovascular: Negative for chest pain, palpitations and leg swelling. Gastrointestinal: Negative for abdominal pain, nausea and vomiting. Genitourinary: Negative for dysuria, frequency, hematuria and urgency. Full 13 point review of systems unremarkable except as noted above. 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 Chronic kidney disease Depressive disorder Hyperlipidemia Hypertension Migraine O/E - hernia Obesity Sleep apnea Past Surgical History: Procedure Laterality Date BACK SURGERY CARPAL TUNNEL RELEASE CORONARY STENT PLACEMENT TONSILLECTOMY VEIN BYPASS SURGERY Social History Tobacco Use Smoking status: Former Current packs/day: 0.00 Types: Cigarettes Quit date: 06/01/2017 Years since quittin.0 Smokeless tobacco: Former Tobacco comments: Smoking History Info:Every day Substance Use Topics Alcohol use: No Family History Problem Relation Age of Onset Dementia Father Hypertension Mother Hypertension Sibling brother Diabetes Father Kidney disease Sibling sister Hypertension Father Heart disease Father Diabetes Mother Diabetes Sibling brother, sister Current Outpatient Medications Medication Sig Dispense Refill allopurinol (ZYLOPRIM) 300 MG tablet Take 300 mg by mouth 1 (one) time each day amLODIPine (NORVASC) 10 MG tablet Take 1 tablet by mouth 1 (one) time each day aspirin (ST GIOVANNI) 81 MG EC tablet Take 1 tablet by mouth 1 (one) time each day atorvastatin (LIPITOR) 80 MG tablet Take 80 mg by mouth 1 (one) time each day carvedilol (COREG) 12.5 MG tablet Take 1.5 tablets by mouth 2 (two) times a day colchicine 0.6 MG tablet Take 0.6 mg by mouth Every 3 days ezetimibe (ZETIA) 10 MG tablet Take 10 mg by mouth 1 (one) time each day furosemide (LASIX) 40 MG tablet Take 1 tablet by mouth 1 (one) time each day metFORMIN (GLUCOPHAGE) 1000 MG tablet Take 1,000 mg by mouth in the morning and 1,000 mg in the evening. Take with meals. psyllium (METAMUCIL) 0.52 g capsule Take 0.104 g by mouth 2 (two) times a day Semaglutide (OZEMPIC, 1 MG/DOSE, SC) Inject under the skin Semaglutide (OZEMPIC, 1 MG/DOSE, SC) Inject 1 mg under the skin per week sildenafil (VIAGRA) 100 MG tablet Take 100 mg by mouth spironolactone (ALDACTONE) 25 MG tablet TAKE 1 TABLET BY MOUTH EVERY DAY 90 tablet 5 Dapagliflozin Propanediol 10 MG tablet Take 10 mg by mouth 1 (one) time each day in the morning 90 tablet 1 ergocalciferol 1.25 MG (10366 UT) capsule TAKE 1 CAPSULE (50,000 UNITS TOTAL) BY MOUTH EVERY 30 DAYS 3 capsule 0 No current facility-administered medications for this visit. Allergies Allergen Reactions Sulfa Antibiotics Objective: Vitals: 06/27/24 1508 BP: 110/60 BP Location: Left upper arm Patient Position: Sitting BP Cuff Size: Adult Weight: 175 lb (79.4 kg) 116/62 Vitals reviewed. Constitutional: No distress. Cardiovascular: Normal rate, regular rhythm and normal heart sounds. He exhibits no edema. Pulmonary/Chest: Effort normal and breath sounds normal. No respiratory distress. Abdominal: Soft. There is no abdominal tenderness. No hernia. Skin: Skin is warm and dry. Psychiatric: He has a normal mood and affect. His behavior is normal. eGFR Date Value Ref Range Status 08/12/2018 49 (L) >60 ml/min eGFR Non-Afr Dutch Date Value Ref Range Status 08/23/2021 46 Final Chemistry Lab Units 02/16/24 0624 12/22/23 0712 06/03/23 0936 10/29/22 0628 CREATININE mg/dL 1.95* 1.89* 1.70* 1.74* BUN mg/dL 42* 48* 44* 48* POTASSIUM mmol/L 4.3 4.4 4.8 4.9 SODIUM mmol/L 136 138 135 138 CO2 mmol/L 21* 23 21* 18* CHLORIDE mmol/L 105 106 105 109* ALBUMIN g/dL -- 4.0 -- -- URIC ACID mg/dL -- -- 4.8 5.0 Bone Mineral Lab Units 02/16/24 0624 12/22/23 0712 06/03/23 0936 10/29/22 0628 CALCIUM mg/dL 9.4 9.5 9.8 9.1 PHOSPHORUS mg/dL -- 4.3 -- -- MAGNESIUM mg/dL -- 2.1 -- -- PTH pg/mL 121.6* 195.9* -- 77 VITAMIN D ng/mL 30.0* 24.2* -- -- CBC Lab Units 12/22/23 0712 06/03/23 0936 WBC AUTO X10*3/uL 12.8* 14.7* RBC AUTO X10*6/uL 5.05 5.15 MCV fL 89.3 85.2 HEMATOCRIT % 45.1 43.9 HEMOGLOBIN g/dl 14.7 14.6 PLATELETS AUTO X10*3/uL 189 201 Urine Lab Units 12/22/23 0738 06/03/23 0941 10/29/22 0707 PROT/CREAT RATIO UR 0.14 0.12 TNP Urine Lab Units 12/22/23 0738 PH U 5.5 5.5 COLOR U Yellow Yellow GLUCOSE U MG/DL mg/dL Negative Negative WBC UR HPF /HPF 0-5 RBC UR HPF /HPF 0-2 PLAN: Assessment & Plan 68 Y/O M STABLE CKD 3 DM HTN PATIENT CKD 3b: c/w DN/Htn renal dis even tho no signif Uprot on last UPCR; Scr has renmained stable DM HTN: controlled; goal < 130/80 Metabolic Bone Disease of CKD: cont to track CA, Phos, HCO3, PTH and vit D levels and treat accordingly PLAN: will again try to add [id number] if insurance will cover; avoid NSAIDs; cont BP/BS control; recheck PTH/vit D and track UACR 1. Stage 3b chronic kidney disease (HCC) 2. Type 2 diabetes mellitus with diabetic chronic kidney disease (HCC) 3. Hypertension Orders Placed This Encounter PTH, Intact Renal Function Panel Urinalysis with microscopic Urine Albumin / Creatinine Ratio Protein, Total, Random Urine w/Creatinine (Protein/Creat Ratio) Vitamin D 25 Hydroxy CBC Phosphorus Magnesium Albumin Calcium Dapagliflozin Propanediol 10 MG tablet Return in about 9 months (around 03/28/2025). Fer Leigh MD documented in this encounter Plan of Treatment Upcoming Encounters Date Type Department Care Team (Late st Contact Info) Description 04/10/2025 2:00 PM EDT Office Visit [facility] [address] [place] [address] Fer Leigh MD [address] [phone] Scheduled Orders Name Type Priority Associated Diagnoses Orde r Schedule PTH, Intact Lab Routine Stage 3b chronic kidney disease (HCC) Type 2 diabetes mellitus with diabetic chronic kidney disease (HCC) Hypertension Expected: 01/25/2025, Expires: 07/28/2025 Renal Function Panel Lab Routine Stage 3b chronic kidney disease (HCC) Type 2 diabetes mellitus with diabetic chronic kidney disease (HCC) Hypertension Expected: 01/25/2025, Expires: 07/28/2025 Urinalysis with microscopic Lab Routine Stage 3b chronic kidney disease (HCC) Type 2 diabetes mellitus with diabetic chronic kidney disease (HCC) Hypertension Expected: 01/25/2025, Expires: 07/28/2025 Urine Albumin / Creatinine Ratio Lab Routine Stage 3b chronic kidney disease (HCC) Type 2 diabetes mellitus with diabetic chronic kidney disease (HCC) Hypertension Expected: 01/25/2025, Expires: 07/28/2025 Protein, Total, Random Urine w/Creatinine (Protein/Creat Ratio) Lab Routine Stage 3b chronic kidney disease (HCC) Type 2 diabetes mellitus with diabetic chronic kidney disease (HCC) Hypertension Expected: 01/25/2025, Expires: 07/28/2025 Vitamin D 25 Hydroxy Lab Routine Stage 3b chronic kidney disease (HCC) Type 2 diabetes mellitus with diabetic chronic kidney disease (HCC) Hypertension Expected: 01/25/2025, Expires: 07/28/2025 CBC Lab Routine Stage 3b chronic kidney disease (HCC) Type 2 diabetes mellitus with diabetic chronic kidney disease (HCC) Hypertension Expected: 01/25/2025, Expires: 07/28/2025 Phosphorus Lab Routine Stage 3b chronic kidney disease (HCC) Type 2 diabetes mellitus with diabetic chronic kidney disease (HCC) Hypertension Expected: 01/25/2025, Expires: 07/28/2025 Magnesium Lab Routine Stage 3b chronic kidney disease (HCC) Type 2 diabetes mellitus with diabetic chronic kidney disease (HCC) Hypertension Expected: 01/25/2025, Expires: 07/28/2025 Albumin Lab Routine Stage 3b chronic kidney disease (HCC) Type 2 diabetes mellitus with diabetic chronic kidney disease (HCC) Hypertension Expected: 01/25/2025, Expires: 07/28/2025 Calcium Lab Routine Stage 3b chronic kidney disease (HCC) Type 2 diabetes mellitus with diabetic chronic kidney disease (HCC) Hypertension Expected: 01/25/2025, Expires: 07/28/2025 documented as of this encounter Visit Diagnoses Diagnosis Stage 3b chronic kidney disease (HCC)- Primary Type 2 diabetes mellitus with diabetic chronic kidney disease (HCC) Hypertension documented in this encounter Care Teams Cosmetic Sales Assistant Relationship Specialty Start Date End Date Heidi Hernandez FNP [address] [place] [address] [address] [place] [address] PCP - General 07/09/20 documented as of this encounter
--- OUTSIDE RECORDS SUMMARY | 2024-07-27 14:20 | XMS_ITS | Patient Health Record ---
Author Organization [facility] Address [address] [place] [phone] Care Team Providers Care Power Sewing Machine Operator Name Role Phone Camilo Hayward D.O. Primary Care Provider Unavail able Daron Mcfadden Taj Unavailable ALLERGIES No Known Allergies RESULTS Component Value Reference Range Notes Glucose, Whole Blood (Not ye t reviewed by provider) Interpretation: Performing Lab:[facility], [address] [place] [phone] Notes/Report: Glucose, Whole Blood 95 60-115 mg/dL METER # : [id number] REASON FOR REFERRAL No Information MEDICATIONS Medication SIG (Take, Route, Frequency, Duration) Notes Start Date End Date Status Turmeric Active Aspirin 81 Active metFORMIN HCl 1000 MG Oral for 90 Active Allopurinol 300 MG Oral for 90 Active Vitamin D (Ergocalciferol) 1.25 MG (47549 UT) TAKE 1 CAPSULE (50,000 UNITS TOTAL) [...] vomiting, unspecified vomiting type (R11.2) Active confirmed 05534207 Problem Gastroesophageal reflux disease without esophagitis (K21.9) Active confirmed 449105781 Problem Colon cancer screening (Z12.11) Active confirmed 270501512 VITAL SIGNS Blood pressure diastolic 00 mm Hg 07/07/2024 Height 5 ft 9 in in 07/07/2024 Blood pressure systolic 00 mm Hg 07/07/2024 Weight 197 lbs 07/07/2024 BMI 29.09 kg/m2 07/07/2024 Encounters Encounter Location Date Provider Diagnosis [facility] Outpatient [address] [place] [phone] 07/27/2024 Taj Neri Jr [facility] [address] [place] [address] 07/07/2024 Taj Neri Jr Nausea and vomiting, [...] ng (ICD-10 - Z12.11) PLAN OF TREATMENT Pending Test Test Name Order Date Glucose, Whole Blood 07/27/2024 Future Test Test Name Order Date UPPER GI ENDOSCOPY 07/07/2024 COLONOSCOPY 07/07/2024 Insurance Providers Payer Name Payer Address Payer Phone Subscriber Number Group Number Insured Name Patient Relationship to Insured Coverage Start Date Coverage End Date [facility] [address] [place] [phone] [id number] SANTI HERNANDEZ Self - patient is the insured MEDICAL (GENERAL) HISTORY Medical History History ICD Code Hypertension and Allergic rhinitis Diabetes mellitus type 2 Coronary artery disease with history of AK and CABG Gout Chronic kidney disease Colonoscopy, 03/09, hyperplastic polyp, t en-year followup Hyperlipidemia JUAN C Surgical History Surgery Date(Month/Year) tonsillectomy and adenoidectomy spinal surgery triple bypass
--- OUTSIDE RECORDS SUMMARY | 2024-07-27 14:20 | XMS_ITS | Clinical Summary ---
Author Organization [facility] Address [address] [place] [address] Phone Care Team Providers Care Ager Operator Name Role Phone Heidi Hernandez DEVELOPMENT GEOLOGIST Primary Care Provider [phone] Allergies Active Allergy Reactions Criticality Noted Date Comments Sulfa Antibiotics 03/21/2021 Medications amLODIPine (NORVASC) 10 MG tablet Take 1 tablet by mouth 1 (one) time each day Active aspirin (ST GIOVANNI) 81 MG EC tablet Take 1 tablet by mouth 1 (one) time each day Active atorvastatin (LIPITOR) 80 MG tablet Take 80 mg by mouth 1 (one) time each day 1 Active carvedilol (COREG) 12.5 MG tablet Take 1.5 tablets by mouth 2 (two) times a day Active ezetimibe (ZETIA) 10 MG tablet Take 10 mg by mouth 1 (one) time each day 1 Active furosemide (LASIX) 40 MG tablet Take 1 tablet by mouth 1 (one) time each day Active sildenafil (VIAGRA) 100 MG tablet Take 100 mg by mouth 0 Active psyllium (METAMUCIL) 0.52 g capsule Take 0.104 g by mouth 2 (two) times a day Active spironolactone (ALDACTONE) 25 MG tablet TAKE 1 TABLET BY MOUTH EVERY DAY 90 tablet 5 2 Active metFORMIN (GLUCOPHAGE) 1000 MG tablet Take 1,000 mg by mouth in the morning and 1,000 mg in the evening. Take with meals. Active colchicine 0.6 MG tablet Take 0.6 mg by mouth Every 3 days Active allopurinol (ZYLOPRIM) 300 MG tablet Take 300 mg by mouth 1 (one) time each day Active Semaglutide (OZEMPIC, 1 MG/DOSE, SC) Inject under the skin Active Semaglutide (OZEMPIC, 1 MG/DOSE, SC) Inject 1 mg under the skin per week Active ergocalciferol 1.25 MG (82104 UT) capsule TAKE 1 CAPSULE (50,000 UNITS TOTAL) BY MOUTH EVERY 30 DAYS 3 capsule 4 Active Dapagliflozin Propanediol (Farxiga) 10 MG tablet Take 10 mg by mouth in the morning. 90 tablet 3 5 025 Active Empagliflozin (Jardiance) 10 MG tablet Take 10 mg by mouth 1 (one) time each day in the morning 90 tablet 2 5 025 Active Dapagliflozin Propanediol 10 MG tablet Take 10 mg by mouth 1 (one) time each day in the morning 90 tablet 1 4 025 Discontinued Dapagliflozin Propanediol (Farxiga) 10 MG tablet Take 10 mg by mouth in the morning. 90 tablet 5 025 Discontinued Dapagliflozin Propanediol (Farxiga) 10 MG tablet Take 10 mg by mouth in the morning. 90 tablet 5 5 025 Discontinued Active Problems Problem Noted Date Diagnosed Date Stage 3b chronic kidney disease 06/04/2023 Type 2 diabetes mellitus wit h diabetic chronic kidney disease 06/04/2023 Hypertension 09/13/2020 Hypertensive heart and renal disease with (congestive) heart failure 09/13/2020 Resolved Problems Problem Noted Date Diagnosed Date Resolved Date Allergic rhinitis 09/13/2020 03/21/2021 Anxiety 09/13/2020 03/21/2021 Depressive disorder 09/13/2020 03/21/20 21 Sleep apnea 09/13/2020 03/21/2021 Arteriosclerosis of coronary artery bypass graft 03/07/2019 03/21/2021 Encounters Date Type Department Care Team Description 06/30/2024 Refill [facility] [address] [place] [address] Fer Leigh MD 06/30/2024 Office Communication [facility] [address] [place] [address] Fer Leigh MD 06/30/2024 Refill [facility] [address] [place] [address] Fer Leigh MD 06/29/2024 Refill [facility] [address] [place] [address] Fer Leigh MD 06/29/2024 Refill [facility] [address] [place] [address] Fer Leigh MD 06/27/2024 3:15 PM EST Office Visit [facility] [address] [place] [address] Fer Leigh MD Stage 3b chronic kidney disease (HCC) (Primary Dx); Type 2 diabetes mellitus with diabetic chronic kidney disease (HCC); Hypertension 06/27/2024 Refill [facility] [address] [place] [address] Fer Leigh MD 05/15/2024 Refill [facility] [address] [facility] [address] [place] [address] Fer Leigh MD from Last 3 Months Family History Medical History Relation Comments Dementia Father Diabetes Father Heart disease Father Hypertension Father Diabetes Mother Hypertension Mother Hypertension Sibling 1 brother Kidney disease Sibling 2 sister Diabetes Sibling 3 brother, sister Relation Status Comments Father Mother Sibling 1 Sibling 2 Sibling 3 Social History Tobacco Use Types Packs/Day Years Used Date Smoking Tobacco: Former Cigarettes Q uit: 06/01/2017 Smokeless Tobacco: Former Tobacco Cessation:Counseling Given: Not Answered Comments:Smoking History Info:Every day Alcohol Use Standard Drinks/Week Comments No 0 (1 standard drink = 0.6 oz pur e alcohol) Sex and Gender Information Value Date Recorded Sex Assigned at Not on file Legal Sex Male 5:14 PM EST Gender Identity Not on file Sexual Orientation Not on file Last Filed Vital Signs Vital Sign Reading Time Taken Comments Blood Pressure 110/60 06/27/2024 3:08 PM EST Pulse 86 12/22/2023 2:12 PM EDT Temperature - - Respiratory Rate - - Oxygen Saturation 99% 12/22/2023 2:12 PM EDT Inhaled Oxygen Concentration - - Weight 79.4 kg (175 lb) 06/27/2024 3:08 PM EST Height 177.8 cm (5' 10 ) 10/30/2022 4:25 PM EDT Body Mass Index 25.11 10/30/2022 4:25 PM EDT Plan of Treatment Upcoming Encounters Date Type Department Care Team (Late st Contact Info) Description 04/10/2025 2:00 PM EDT Office Visit [facility] [address] [place] [address] [place] [address] Fer Leigh MD [address] [address] Health Maintenance Due Date Last Done Comments Pneumococcal Vaccine: 65+ Years (1 of 2 - PCV) 1961 Colorectal Cancer Screening: Annual FOBT 2006 Colorectal Cancer Screening: Colonoscopy 2006 Colorectal Cancer Screening: Sigmoidoscopy 2006 Diabetes: Hemoglobin A1C 06/04/2023 Diabetes: Ophthalmology Exam 06/04/2023 Diabetes: Pedal Pulse Checked 06/04/2023 Diabetes: Sensory Foot Exam 06/04/2023 Diabetes: Visual Foot Exam 06/04/2023 Influenza Vaccine Completed 04/14/2024, 04/22/2023 Hepatitis B Vaccine Aged Out No longe r eligible based on patient's age to complete this topic Insurance [facility] Care Teams Ager Operator Relationship Specialty Start Date End Date Heidi Hernandez FNP [address] [place] [address] [address] [place], [place] PCP - General 07/09/20
[2024-07-27 14:21] VITALS: BP 120/75; PULSE 74; RESP 18; TEMP 36.6; O2SAT 98
--- OUTSIDE RECORDS SUMMARY | 2024-07-27 14:21 | XMS_ITS ---
Author Organization [facility] Address [address] [place] [address] Care Team Providers Care Bird Cage Assembler Name Role Phone Camilo Hayward D.O. Primary [...] 90 Active Vitamin D (Ergocalciferol) 1.25 MG (44396 UT) TAKE 1 CAPSULE (50,000 UNITS TOTAL) [...] vomiting, unspecified vomiting type (R11.2) Active confirmed 41247519 Problem Gastroesophageal reflux disease without esophagitis (K21.9) Active confirmed 713372487 Problem Colon cancer screening (Z12.11) Active confirmed 128055367 VITAL SIGNS BMI 29.09 kg/m2 07/07/2024 Blood pressure systolic 00 mm Hg 07/07/19 25 Blood pressure diastolic 00 mm Hg 025 Height 5 ft 9 in in 07/07/2024 Weight 197 lbs 07/07/2024 Encounters Encounter Location Date Provider Diagnosis [facility] [address] [place] [address] 07/07/2024 Taj Neri Jr Nausea and vomiting, [...] ENDOSCOPY 07/07/2024 COLONOSCOPY 07/07/2024 Next Appt Details Follow Up: 1 Year, Reason: Progress Notes * Examination Category Sub-Category Detail Notes General Examination GENERAL APPEARANCE: in no ac ludy distress HEAD: normocephalic EYES: sclera non-icteric NECK/THYROID: no lymphadenopathy HEART: S1, S2 normal, no mu rmurs CHEST: normal shape and exp ansion LUNGS: clear to auscultatio n bilaterally ABDOMEN: soft, nontender, non distended, bowel sounds present, no organomegaly SKIN: anicteric EXTREMITIES: no clubbing, cyanosi s, or edema PSYCH: cognitive function i ntact ORAL CAVITY: mucosa moist
--- OUTSIDE RECORDS SUMMARY | 2024-07-27 14:21 | XMS_ITS | Encounter Summary ---
Author Organization [facility] Address [address] [address] Phone Care Team Providers Care Sod Farmer Name Role Phone Heidi Hernandez Primary Care Provider [phone] Encounter Details Date Type Department Care Team (Late Contact Info) Description 06/30/2024 Office Communication [facility] [address] [address] Fer Leigh MD [address] [place] [address] Social History Tobacco Use Types Packs/Day Years [...] on file documented as of this encounter Plan of Treatment Upcoming Encounters Date Type Department Care Team (Late Contact Info) Description 04/10/2025 2:00 PM EDT Office Visit [facility] [address] [place] [address] Fer Leigh MD [address] [address] documented as of this encounter Visit Diagnoses Not on filedocumented in this encounter Care Teams Sod Farmer Relationship Specialty Start Date End Date Heidi Hernandez FNP [address] [place] [address] DR [place], [place] PCP - General 07/09/20 documented as of this encounter
--- OUTSIDE RECORDS SUMMARY | 2024-07-27 14:21 | XMS_ITS | Clinical Summary ---
Author Organization [facility] Address [address] [place] [address] Care Team Providers Care Senior Technical Trainer Name Role Phone Camilo Hayward MD Primary Care Provider Unavailab le Allergies Active Allergy Reactions Criticality Noted Date Comments Sulfa Antibiotics 03/21/2021 Medications Medication Sig Dispensed Refills Start Date End Date Status aspirin 81 MG EC tablet Take 1 tablet (81 mg total) by mouth. 0 Active psyllium (METAMUCIL) 0.52 g capsule Take 0.104 g by mouth. 0 Active Multiple Vitamin (MULTIVITAMIN ADULT PO) Take by mouth. 0 Active allopurinol (ZYLOPRIM) 100 MG tablet Take 3 tablets (300 mg total) by mouth daily. 0 06/24/2022 Active Turmeric 400 MG CAPS Take 4 caplet by mouth daily. 0 Active atorvastatin (LIPITOR) tablet 80 mg Take 1 tablet (80 mg total) by mouth daily. 0 09/02/2023 Active ezetimibe (ZETIA) tablet 10 mg Take 1 tablet (10 mg total) by mouth daily. 0 09/02/2023 Active furosemide (LASIX) 40 MG tablet Take 1 tablet (40 mg total) by mouth daily. 0 09/22/2023 Active sildenafil (VIAGRA) 100 MG tablet as needed. 0 10/02/2023 Active PREDNISONE, KARAN, PO Take by mouth as needed (gout flares). 0 Active metFORMIN (GLUCOPHAGE) tablet 1000 mgIndications:Controlle d type 2 diabetes mellitus with mild nonproliferative retinopathy without macular edema, with long-term current use of insulin, unspecified laterality (HCC) Take 1 tablet (1,000 mg total) by mouth every morning with breakfast. 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 9 mL 3 10/30/2023 Active amLODIPine (NORVASC) tablet 10 mgIndications:Hypertens jasmyne heart and renal disease with (congestive) heart failure (HCC),Primary hypertension Take 1 tablet (10 mg total) by mouth daily. 90 tablet 3 03/14/2024 Active carvedilol (COREG) 12.5 MG tabletIndications:Hyper tensive heart and renal disease with (congestive) heart failure (HCC),Primary hypertension TAKE 1.5 TABLETS (18.75 MG TOTAL) BY MOUTH 2 (TWO) TIMES A DAY WITH MEALS. 180 tablet 3 03/14/2024 Active spironolactone (ALDACTONE) tablet 25 mgIndications:Hypertens jasmyne heart and renal disease with (congestive) heart failure (HCC),Primary hypertension Take 1 tablet (25 mg total) by mouth daily. 90 tablet 3 03/14/2024 Active ergocalciferol (VITAMIN D2) capsule 93044 units Take 1 capsule (50,000 Units total) by mouth every 30 (thirty) days. 0 02/17/2024 Active Active Problems Problem Noted Date Diagnosed Date Hypertensive heart and renal disease with (congestive) heart failure 09/13/2020 Coronary artery disease invo lving coronary bypass graft of samish heart without angina pectoris 03/07/2019 Allergic rhinitis Anxiety Depression Hypertension Sleep apnea Immunizations Name Administration Dates Next Due Covid-19 ([employer]) Dilution Required 05/20/2021,0 07/13/2020,06/21/2020 Covid-19 ([employer]) Ready To Use 04/14/2024 Influenza Quad (Fluad) 0.5 m L >65Yrs (AIIV4) 04/22/2023 Influenza Quad (High Dose Fl uzone) 0.7mL >65Yrs (HD-IIV4) 04/02/2021 Influenza Trivalent (Fluzone High Dose) 0.7 mL (65yrs &>) 04/14/2024 Pneumococcal Conjugate PCV20 06/05/2023 RSV PreF3 ([employer]) Adjuvant Reconstituted 0.5mL 60+ Yrs 04/22/2023 Family History Medical History Relation Name Comments Diabetes Brother Heart disease Brother Mental illness Brother Cancer Father Diabetes Father Heart disease Father Diabetes Mother Heart disease Mother Stroke Mother Heart disease Sister Heart failure Sister Kidney disease Sister Relation Name Status Comments Brother Alive Father Mother Sister Alive Social History Tobacco Use Types Packs/Day Years Used Date Smoking Tobacco: Former Cigarettes Q uit: 2020 Smokeless Tobacco: Never Tobacco Cessation:Counseling Given: Not Answered Alcohol Use Standard Drinks/Week Comments Yes 0 (1 standard drink = 0.6 oz pur e alcohol) moderate Sex and Gender Information Value Date Recorded Sex Assigned at Male 10/30/2023 2:21 PM EDT Gender Identity Not on file Sexual Orientation Not on file Job Start Date Occupation Industry Not on file Not on file Not on file Last Filed Vital Signs Vital Sign Reading Time Taken Comments Blood Pressure 107/76 03/28/2024 10:52 AM EDT Pulse 90 03/28/2024 10:52 AM EDT Temperature 36.3 ??C (97.3 ??F) 03/28/2024 10:52 AM E DT Respiratory Rate 16 07/17/2022 3:43 PM EST Oxygen Saturation 97% 03/28/2024 10:52 AM EDT Inhaled Oxygen Concentration - - Weight 88.5 kg (195 lb) 03/28/2024 10:52 AM EDT Height 177.8 cm (5' 10 ) 03/24/2023 11:34 AM EDT Body Mass Index 27.98 03/24/2023 11:34 AM EDT Plan of Treatment Health Maintenance Due Date Last Done Comments Diabetes: Eye Exam (No Retinopathy) 1975 Hemoglobin A1C Due 1975 DTap / Tdap / Td (1 - Tdap) 1976 Shingrix-Zoster Vaccine (1 of 2) 2007 Colon Cancer Screening (Colonoscopy) 02/06/2021 02/06/2011 Abdominal Aortic Aneurysm (AAA) Screening 2022 Diabetes: Foot Exam 03/24/2024 03/24/2023, COVID-19 Vaccine ( season) 2024 04/14/2024, 05/20/2021, 07/13/2020, Additional history exists Tobacco Cessation Counseling 10/29/2024 10/30/2023 Diabetes: Microalbumin Test 11/29/2024 11/30/2023 BMI Counseling 03/28/2025 03/28/2024, 05/0 08/2023, 03/24/2023, Additional history exists Depression Screening 03/28/2025 03/28/2024, 03/28/2024, 03/24/2023, Additional history exists Fall Risk Assessment 03/28/2025 03/28/2024, 03/28/2024, 03/24/2023, Additional history exists Preventative Health Evaluation 03/28/2025 03/28/2024, 03/24/2023, 01/09/2022 RSV Adult > 60+ Yrs or Completed 04/22/2023 Pneumococcal Vaccine Completed 06/05/2023 Influenza Vaccine Completed 04/14/2024, , 04/02/2021 Hepatitis B Vaccines Aged Out No long er eligible based on patient's age to complete this topic Hepatitis C Screening Discontinued RSV Ped < 20 months Aged Out No longe r eligible based on patient's age to complete this topic Insurance Payer Benefit Plan / Group Subscriber ID Effective Dates Phone Address [facility] [id number] 2023-Present [address] [address] O Care Teams Senior Technical Trainer Relationship Specialty Start Date End Date Camilo Hayward MD PCP - General Family Medicine 04/27/23
--- OUTSIDE RECORDS SUMMARY | 2024-07-27 14:21 | XMS_ITS | Encounter Summary ---
Author Organization [facility] Address [address] [address] Phone Care Team Providers Care Development Representative Name Role Phone Heidi Hernandez Primary Care Provider [phone] Reason for Visit * Reason Comments Med Change Request Encounter Details Date Type Department Care Team ([facility] Contact Info) Description 06/29/2024 Refill [facility] [address] [place] [address] Fer Leigh MD [address] [address] Social History Tobacco Use Types Packs/Day [...] Office Visit [facility] [address] [place] [address] Fer Leigh MD [address] [address] documented as of this encounter Visit Diagnoses Not on filedocumented in this encounter Care Teams Development Representative Relationship Specialty Start Date End Date Heidi Hernandez FNP [address] [place] PCP - General 07/09/20 documented as of this encounter
--- OUTSIDE RECORDS SUMMARY | 2024-07-27 14:21 | XMS_ITS | Encounter Summary ---
Author Organization [facility] Address [address] [address] Phone Care Team Providers Care Hog Cutter Name Role Phone Heidi Hernandez Primary Care Provider [phone] Reason for Visit * Reason Comments Med Change Request Encounter Details Date Type Department Care Team ([facility] Contact Info) Description 06/27/2024 Refill [facility] [address] [place] [address] Fer Leigh MD [address] [address] Social History Tobacco Use Types [...] Office Visit [facility] [address] [place] [address] Fer Leigh MD [address] [address] documented as of this encounter Visit Diagnoses Not on filedocumented in this encounter Care Teams Hog Cutter Relationship Specialty Start Date End Date Heidi Hernandez FNP [address] [place] PCP - General 07/09/20 documented as of this encounter
--- OUTSIDE RECORDS SUMMARY | 2024-07-27 14:21 | XMS_ITS | Encounter Summary ---
Author Organization [facility] Address [address] [address] Phone Care Team Providers Care Reservation Agent Name Role Phone Heidi Hernandez Primary Care Provider [phone] Reason for Visit * Reason Comments Med Change Request Encounter Details Date Type Department Care Team ([facility] Contact Info) Description 06/30/2024 Refill [facility] [address] [place] [address] Fer Leigh MD [address] [address] Social History Tobacco Use Types [...] Office Visit [facility] [address] [place] [address] Fer Leigh MD [address] [address] documented as of this encounter Visit Diagnoses Not on filedocumented in this encounter Care Teams Reservation Agent Relationship Specialty Start Date End Date Heidi Hernandez FNP [address] [place] PCP - General 07/09/20 documented as of this encounter
--- OUTSIDE RECORDS SUMMARY | 2024-07-27 14:21 | XMS_ITS | Encounter Summary ---
Author Organization [facility] Address [address] [facility] [address] [place] [address] Phone Care Team Providers Care Diesel Inspector Name Role Phone Heidi Hernandez Primary Care Provider [phone] Encounter Details Date Type Department Care Team (Late Contact Info) Description 02/17/2024 Office Communication [facility] [address] [facility] [address] [place] [address] Fer Leigh MD [address] [address] Social History Tobacco Use Types [...] Office Visit [facility] [address] [place] [address] [place] [address] [address] documented as of this encounter Visit Diagnoses Not on filedocumented in this encounter Care Teams Diesel Inspector Relationship Specialty Start Date End Date Heidi Hernandez FNP [address] [place] [address] DR [place]O [place] PCP - General 07/09/20 documented as of this encounter
--- OUTSIDE RECORDS SUMMARY | 2024-07-27 14:21 | XMS_ITS | Encounter Summary ---
Author Organization [facility] Address [address] [address] Phone Care Team Providers Care Therapist Radiation Name Role Phone Heidi Hernandez Primary Care Provider [phone] Reason for Visit * Reason Comments Med Change Request Encounter Details Date Type Department Care Team ([facility] Contact Info) Description 06/29/2024 Refill [facility] [address] [place] [address] Fer Leigh MD [address] [address] Social History Tobacco Use Types [...] Visit [facility] [address] [place] [address] Fer Leigh MD [address] [address] documented as of this encounter Visit Diagnoses Not on filedocumented in this encounter Care Teams Therapist Radiation Relationship Specialty Start Date End Date Heidi Hernandez FNP [address] [place] PCP - General 07/09/20 documented as of this encounter
--- OUTSIDE RECORDS SUMMARY | 2024-07-27 14:21 | XMS_ITS | Encounter Summary ---
Author Organization [facility] Address [address] [address] Phone Care Team Providers Care Desk Clerk Name Role Phone Heidi Hernandez Primary Care Provider [phone] Reason for Visit * Reason Comments Med Change Request Encounter Details Date Type Department Care Team ([facility] Contact Info) Description 06/30/2024 Refill [facility] [address] [place] [address] Fer Leigh MD [address] [address] Social History Tobacco Use Types [...] Office Visit [facility] [address] [place] [address] Fer Leigh MD [address] [address] documented as of this encounter Visit Diagnoses Not on filedocumented in this encounter Care Teams Desk Clerk Relationship Specialty Start Date End Date Heidi Hernandez FNP [address] [place] PCP - General 07/09/20 documented as of this encounter
--- OUTSIDE RECORDS SUMMARY | 2024-07-27 14:21 | XMS_ITS ---
Author Organization [facility] Address [address] [place] [address] Care Team Providers Care Laborer Chicken [employer] Name Role Phone Camilo Hayward D.O. Primary Care Provider Unavail able Taj Neri Jr Unavailable [phone] REASON FOR VISIT gerd, nausea, vomiting,screening Encounters Encounter Location Date Provider Diagnosis [facility] [address] [place], [place] [id number] 07/27/2024 Taj Neri Jr PLAN OF TREATMENT No Information
== END 2024-07-27 14:55 | disposition home or self-care (01) ==
PROVIDERS: PCP Family Medicine; Visit Provider Internal Medicine Gastroenterology
PROC: (CPT 45385; principal; 2024-07-27 13:00)
DX: Z12.11 Encounter for screening for malignant neoplasm of colon (principal); D12.4 Benign neoplasm of descending colon; K63.5 Polyp of colon; K62.1 Rectal polyp; K21.00 Gastro-esophageal reflux disease with esophagitis, without bleeding; K29.50 Unspecified chronic gastritis without bleeding; K44.9 Diaphragmatic hernia without obstruction or gangrene; E11.22 Type 2 diabetes mellitus with diabetic chronic kidney disease; I12.9 Hypertensive chronic kidney disease with stage 1 through stage 4 chronic kidney disease, or unspecified chronic kidney disease; N18.9 Chronic kidney disease, unspecified; Z79.84 Long term (current) use of oral hypoglycemic drugs; Z79.85 Long-term (current) use of injectable non-insulin antidiabetic drugs; I25.10 Atherosclerotic heart disease of native coronary artery without angina pectoris; Z95.1 Presence of aortocoronary bypass graft; I25.2 Old myocardial infarction; E78.5 Hyperlipidemia, unspecified; G47.33 Obstructive sleep apnea (adult) (pediatric); J30.9 Allergic rhinitis, unspecified; Z79.82 Long term (current) use of aspirin; Z79.899 Other long term (current) drug therapy; Z88.2 Allergy status to sulfonamides; Z88.5 Allergy status to narcotic agent; Z87.891 Personal history of nicotine dependence
CPT/HCPCS: 45385; 45380; 43239; 82947; 88305; 88342; J2003; J2704; J3010

== ENCOUNTER 2024-09-29 06:54 | Outpatient (REF) | payer MEDICARE, SELFPAY ==
--- OUTSIDE RECORDS SUMMARY | 2024-09-29 06:58 | XMS_ITS | Clinical Summary ---
Author Organization [facility] Address [address] [place] [address] Care Team Providers Care Forestry Workers Name Role Phone Camilo Hayward DO Primary Care Provider Allergies Active Allergy Reactions Criticality Noted Date Comments Sulfa (Sulfonamide Antibiotics) 02/28 Medications allopurinoL (ZYLOPRIM) 100 mg tablet Take 3 tablets (300 mg total) by mouth daily. 2 Active amLODIPine (NORVASC) 10 mg tablet Take 1 tablet (10 mg total) by mouth 1 (one) time each day. 4 Active aspirin 81 mg EC tablet Take 1 tablet (81 mg total) by mouth. Active carvediloL (COREG) 12.5 mg tablet TAKE 1.5 TABLETS (18.75 MG TOTAL) BY MOUTH 2 (TWO) TIMES A DAY WITH MEALS. 4 Active ergocalciferol (VITAMIN D-2) 1,250 mcg (50,000 unit) capsule Take 1 capsule (50,000 Units total) by mouth every 30 (thirty) days. 4 Active ezetimibe (ZETIA) 10 mg tablet Take 1 tablet (10 mg total) by mouth 1 (one) time each day. 4 Active furosemide (LASIX) 40 mg tablet Take 1 tablet (40 mg total) by mouth 1 (one) time each day. 4 Active metFORMIN (GLUCOPHAGE) 1,000 mg tablet Take 1 tablet (1,000 mg total) by mouth every morning with breakfast. 4 Active multivitamin (MULTIPLE VITAMINS ORAL) Take by mouth. Active PREDNISONE ORAL Take by mouth as needed (gout flares). Active psyllium (METAMUCIL) 0.4 gram capsule Take 0.104 g by mouth. Active spironolactone (ALDACTONE) 25 mg tablet Take 1 tablet (25 mg total) by mouth 1 (one) time each day. 4 Active turmeric 400 mg capsule Take 4 caplet by mouth daily. Active sildenafiL (VIAGRA) 100 mg tablet TAKE 1 TABLET (100 MG TOTAL) BY MOUTH DAILY NEEDED. 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 90 tablet 5 Active semaglutide (Ozempic) 1 mg/dose (4 mg/3 mL) injection penIndications: Type 2 diabetes mellitus with other specified complication, without long-term current use of insulin Inject 1 mg under the skin every 7 (seven) days. 9 mL 5 12/12/19 25 Active semaglutide (Ozempic) 1 mg/dose (4 mg/3 mL) injection pen Inject 0.75 mL (1 mg total) under the skin once a week. 4 09/13/19 25 Discontinu ed(Reorder ) atorvastatin (LIPITOR) 80 mg tablet TAKE 1 TABLET BY MOUTH EVERY DAY 90 tablet 4 09/01/19 25 Discontinu ed(Reorder ) Active Problems Problem Noted Date Diagnosed Date Allergic rhinitis 05/16/2024 Anxiety 05/16/2024 Depression 05/16/2024 Hypertension 05/16/2024 Sleep apnea 05/16/2024 Hypertensive heart and renal disease with (congestive) heart failure 09/13/2020 Coronary artery disease invo lving coronary bypass graft of council heart without angina pectoris 03/07/2019 Encounters Date Type Department Care Team Description 08/11/2024 Telephone Internal Medicine - [place] [facility] [address] [place] [address] Sushma Garcia RN from Last 3 Months Immunizations Name Administration Dates Next Due Influenza Quadravalent, 0.5m l (Fluad) 65yo and older 04/22/2023 Influenza Quadravalent, 0.5m l (Fluzone High-dose) 65yo and older 04/02/2021 Influenza trivalent, 0.5mL ( Fluzone High-dose) 65yo and older 04/14/2024 [employer] SARS-CoV-2 COVID-19, mRNA, LNP-S, preservative free 05/20/2021,07/13/2020,06/21/2020 Pneumococcal conjugate 20 va lent (Prevnar 20, PCV 20) 2mo and older 06/05/2023 RSV, bivalent, protein subun it RSVpreF, 0.5mL, Preservative Free (Arexvy) 60yo and older 04/22/2023 Surgical History Surgery Date Site/Laterality Comments ADENOIDECTOMY PROCEDURE:ADENOIDECTOMY SPINE SURGERY PROCEDURE:SPINE SURGERY TONSILLECTOMY PROCEDURE:TONSILLECTOMY Medical History Medical History Date Comments Headache DX:Headache Visual impairment DX:Visual impa irment Anemia DX:Anemia HL (hearing loss) DX:HL (hearing loss) Allergic rhinitis DX:Allergic rh initis Anxiety DX:Anxiety Depression DX:Depression Hypertension DX:Hypertension Sleep apnea DX:Sleep apnea Family History Medical History Relation Name Comments Diabetes Brother Heart disease Brother Mental illness Brother Cancer Father Diabetes Father Heart disease Father Diabetes Mother Heart disease Mother Stroke Mother Heart disease Sister Heart failure Sister Kidney disease Sister Relation Name Status Comments Brother Alive Father Mother Sister Alive Social History Tobacco Use Types Packs/Day Years Used Date Smoking Tobacco: Former Cigarettes Q uit: 06/29/2019 Smokeless Tobacco: Never Alcohol Use Standard Drinks/Week Comments Yes 0 (1 standard drink = 0.6 oz pur e alcohol) Sex and Gender Information Value Date Recorded Sex Assigned at Not on file Legal Sex Male 9:52 AM EST Gender Identity Not on file Sexual Orientation Not on file Obstetrics History Last Filed Vital Signs Vital Sign Reading Time Taken Comments Blood Pressure 102/80 10/30/2023 2:21 PM EDT Pulse 98 10/30/2023 2:21 PM EDT Temperature - - Respiratory Rate - - Oxygen Saturation - - Inhaled Oxygen Concentration - - Weight 97.1 kg (214 lb) 10/30/2023 2:21 PM EDT Height 177.8 cm (5' 10 ) 03/24/2023 11:34 AM EDT Body Mass Index 30.71 03/24/2023 11:34 AM EDT Plan of Treatment Upcoming Encounters Date Type Department Care Team (Late st Contact Info) Description 11/23/2024 9:30 AM EDT Office Visit Internal Medicine - [place] [address] [place] [address] YesyCamilo DO [address] [place] [address] Health Maintenance Due Date Last Done Comments Diabetes: Annual Foot Exam 1967 DTaP,Tdap,and Td Vaccines (1 - Tdap) 1976 Zoster Vaccines (1 of 2) 2007 Diabetes: Annual GFR (Glomerular Filtration Rate) 08/31/2020 09/01/2019 Abdominal Aortic Aneurysm (AAA) Screen 06/07/2022 Cholesterol Screening (Lipid Panel) 06/07/2022 Colorectal Cancer Screening: Colonoscopy 06/07/2022 02/06/2011 Hepatitis C Screening 06/07/2022 Hypertension/CHF/CAD Annual BMP Blood Test 06/07/2022 09/01/2019 Social Influencers of Health Screening 06/07/2022 Diabetes: Blood Sugar Control Test (HGBA1C) 04/07/2024 COVID-19 Vaccine ( season) 2024 04/14/2024, 05/20/2021, 07/13/2020, Additional history exists Diabetes: Annual Urine Albumin-Creatinine Ratio (uACR) 11/29/2024 11/30/2023 Depression Screening 03/28/2025 03/28/2024 Falls Risk Assessment 03/28/2025 03/28/2024 Medicare Annual Wellness Visit 03/28/2025 03/28/2024 Diabetes: Annual Retina Eye Exam 07/12/2025 07/12/2024 RSV Immunization Adult Patients Completed 04/22/2023 Pneumococcal Vaccine: 50+ Years Completed 06/05/2023 Influenza Vaccine Completed 04/14/2024, , 04/02/2021 HIB Vaccines Aged Out No longer eligi ble based on patient's age to complete this topic HPV Vaccines Aged Out No longer eligi ble based on patient's age to complete this topic Hepatitis A Vaccines Aged Out No long er eligible based on patient's age to complete this topic Hepatitis B Vaccines Aged Out No long er eligible based on patient's age to complete this topic IPV Vaccines Aged Out No longer eligi ble based on patient's age to complete this topic MMR Vaccines Aged Out No longer eligi ble based on patient's age to complete this topic Meningococcal ACWY Vaccine Aged Out N o longer eligible based on patient's age to complete this topic Meningococcal B Vacine Aged Out No lo nger eligible based on patient's age to complete this topic RSV Immunization Patients Under 20 months Aged Out No longer eligible based on patient's age to complete this topic Varicella Vaccines Aged Out No longer eligible based on patient's age to complete this topic Procedures Procedure Name Priority Date/Time Associated Diagnosis Comments EXTERNAL DIABETIC RETINA EYE EXAM 07/12/2024 DEPRESSION SCREENING Routine 03/28/2024 FALLS RISK ASSESSMENT Routine 03/28/2024 URINE ALBUMIN CREATININE RATIO Routine 11/30/2023 ANNUAL BMP BLOOD TEST Routine 09/01/2019 COLONOSCOPY Routine 02/06/2011 from Last 3 Months or Most Recently Relevant to Health Maintenance Results * External Diabetic Retina Eye Exam Report (07/12/2024) Anatomical Region Laterality Modality Ultrasound Provider [employer] [facility] US PROCEDURES Final Result * Falls Risk Assessment (03/28/2024) Falls Risk Assessment ABSTRACTED Result [facility] Historical Provider HEALTH MAINTENANCE Final Result * Depression Screening (03/28/2024) Depression Screening ABSTRACTED Result [facility] Provider HEALTH MAINTENANCE Final Result * Urine Albumin Creatinine Ratio (11/30/2023) Urine Albumin Creatinine Ratio ABSTRACTED Result [facility] Provider HEALTH MAINTENANCE Final Result * Annual BMP Blood Test (09/01/2019) Annual BMP Blood Test ABSTRACTED us Historical Provider HEALTH MAINTENANCE Final Result * Colonoscopy (02/06/2011) Colonoscopy no interpretation , abstracted Anatomical Region Laterality Modality Other us Historical Provider HEALTH MAINTENANCE Final Result from Last 3 Months or Most Recently Relevant to Health Maintenance Insurance [employer] MEDICARE ADVANTAGE MEDICARE Care Teams Forestry Workers Relationship Specialty Start Date End Date Camilo Hayward DO [address] [place] [address] PCP - General 04/27/23
--- OUTSIDE RECORDS SUMMARY | 2024-09-29 06:58 | XMS_ITS ---
Author Organization [facility] Address [address] [place] [address] Care Team Providers Care Trial Examiner Name Role Phone Camilo Hayward D.O. Primary Care Provider Unavail able Taj Neri Jr Unavailable [phone] REASON FOR VISIT pathology Encounters Encounter Location Date Provider Diagnosis [facility] [address] [place] [phone] 08/04/2024 Taj Neri Jr Plan Of Treatment Next Appt Details Provider Name:Taj marti Jr, 11/09/2024 01:00:00 PM, [address] [place] [address], [phone], Progress Notes * RHEAKenna SANTIDOB:[birth year] (69 yo M)Acc No.[id number]:08/04/2024 Patient:?SANTI HERNANDEZ :1955???Age:69 Y???Sex:Male Address:[address] [place] [address], [address] * true * Date:? Generated for Printi lissa/Yadi/eTransmitting on:?09/29/2024 06:58 AM EDT
--- OUTSIDE RECORDS SUMMARY | 2024-09-29 06:58 | XMS_ITS | Encounter Summary ---
Author Organization [facility] Address [address] [facility] [address] [place] [address] Phone Care Team Providers Care Inspector Raw Quartz Name Role Phone Heidi Hernandez Primary Care Provider [phone] Encounter Details Date Type Department Care Team (Late Contact Info) Description 02/17/2024 Office Communication [facility] [address] [facility] [address] [place] [address] Fer Leigh MD [address] [address] Social History Tobacco Use Types [...] Office Visit [facility] [address] [place] [address] Fer Leigh MD [address] [address] documented as of this encounter Visit Diagnoses Not on filedocumented in this encounter Care Teams Inspector Raw Quartz Relationship Specialty Start Date End Date Heidi Hernandez FNP [address] [place] [address] DR WILFREDO DUNCAN [place] PCP - General 07/09/20 documented as of this encounter
--- OUTSIDE RECORDS SUMMARY | 2024-09-29 06:58 | XMS_ITS | Encounter Summary ---
Author Organization [facility] Address [address] [address] Phone Care Team Providers Care Account Liaison Name Role Phone Heidi Hernandez Primary Care Provider [phone] Reason for Visit * Reason Comments Med Change Request Encounter Details Date Type Department Care Team ([facility] Contact Info) Description 06/30/2024 Refill [facility] [address] [place] [address] Fer Leigh MD [address] [address] Social History Tobacco Use Types [...] Office Visit [facility] [address] [place] [address] Fer Leigh MD [address] [address] documented as of this encounter Visit Diagnoses Not on filedocumented in this encounter Care Teams Account Liaison Relationship Specialty Start Date End Date Heidi Hernandez FNP [address] [place] PCP - General 07/09/20 documented as of this encounter
--- OUTSIDE RECORDS SUMMARY | 2024-09-29 06:58 | XMS_ITS | Clinical Summary ---
Author Organization [facility] Address [address] [place] [address] Care Team Providers Care Project Engineer Chemicals Name Role Phone Camilo Hayward MD Primary [...] 3 03/14/2024 Active ergocalciferol (VITAMIN D2) capsule 62843 units Take 1 capsule (50,000 Units total) by mouth every 30 (thirty) days. 0 02/17/2024 Active Active Problems Problem Noted Date Diagnosed Date Hypertensive heart and renal disease with (congestive) heart failure 09/13/2020 Coronary artery disease invo lving coronary bypass graft of [place] heart without angina pectoris 03/07/2019 Allergic rhinitis Anxiety Depression Hypertension Sleep apnea Immunizations Name Administration Dates Next Due Covid-19 ([employer]) Dilution Required 05/20/2021,0 07/13/2020,06/21/2020 Covid-19 ([employer]) Ready To Use 04/14/2024 Influenza Quad (Fluad) [...] Group Subscriber ID Effective Dates Phone Address [facility] [id number] 2023-Present [address] [address] O Care Teams Project Engineer Chemicals Relationship Specialty Start Date End Date Camilo Hayward MD PCP - General Family Medicine 04/27/23
--- OUTSIDE RECORDS SUMMARY | 2024-09-29 06:58 | XMS_ITS ---
Author Organization [facility] Address [address] [place] [address] Care Team Providers Care Insurance Agency Owner Name Role Phone Camilo Hayward D.O. Primary Care Provider Unavail Taj Landon Jr Unavailable [phone] REASON FOR VISIT gerd, nausea, vomiting,screening Problems Problem Type SNOMED Code ICD Code Onset Dates Problem Status W/U Status Risk Notes Problem Gastro-esophagea l reflux disease without esophagitis (138289791) Gastro-esophage al reflux disease without esophagitis (K21.9) Active confirmed Encounters Encounter Location Date Provider Diagnosis [facility] Outpatient [address] [place] [phone] 07/27/2024 Taj Neri Jr Colon cancer screening [...] esophagitis (ICD-10 - K21.9) Plan Of Treatment Next Appt Details Provider Name:Taj marti Jr, 11/09/2024 01:00:00 PM, [address] [place] [address], [phone], Progress Notes * SANTI HERNANDEZDOB:[birth year] (69 yo M)Acc No.[id number]:07/27/2024 EGD and COL/MAC Patient:?SANTI HERNANDEZ Provider:?Taj Neri MD :1955???Age:69 Y???Sex:Male Eric e:07/27/2024 Address:[address] [place] [address] Pcp:Camilo Hayward D.O. Subjective: * Chief Complaints: * ???1. Gerd, nausea, vomiting ,screening. * Medical History:? Objective: * Vitals:? Assessment: * Assessment: 1.?Colon cancer screening - Z12.11 (Primary)???2.?Colon polyps - K63.5???3.?Intractable vomiting with nausea, unspecified vomiting type - R11.2???4.?Gastro-esophageal reflux disease without esophagitis - K21.9??? Plan: * Treatment: * Procedure Codes:?41704 LESIO N REMOVAL COLONOSCOPY, 28553 COLONOSCOPY AND BIOPSY, Modifiers: 61 , 0529F INTRVL 3+YRS PTS CLNSCP DOCD, 62535 UPPER GI ENDOSCOPY, BIOPSY * * The named appointment provid er may or may not be the originator of this progress note, and it is not deemed complete until electronically signed by the appointment provider. Sign off status: Pending * Provider:?Taj Neri MD Date:?0 07/27/2024 Generated for Josh alcaraz/Yadi/eTransmitting on:?09/29/2024 06:58 AM EDT
--- OUTSIDE RECORDS SUMMARY | 2024-09-29 06:58 | XMS_ITS ---
Author Organization [facility] Address [address] [place] [address] Care Team Providers Care Property Worker Name Role Phone Camilo Hayward D.O. Primary Care Provider Unavail able Taj Neri Jr Unavailable Allergies No Known Allergies REASON FOR VISIT Patient presents today for a colon screening Medications Medication SIG (Take, Route, Frequency, Duration) Notes Start Date End Date Status Turmeric Active metFORMIN HCl 1000 MG Oral for 90 Active Allopurinol 300 MG Oral for 90 Active Vitamin D (Ergocalciferol) 1.25 MG (79881 UT) TAKE 1 CAPSULE (50,000 UNITS TOTAL) [...] DAY WITH MEALS. Oral for 90 Active Social History Tobacco Use: Social History Observation Description Date Details (start date - stop date) Former Smoker NA - NA Tobacco Use/Smoking Question Answer Notes Patient is a former smoker How long has it been since you last smoked? 5-10 years Alcohol Screen Question Answer Notes Did you have a drink containing alcohol in the p ast year? No Points 0 Interpretation Negative Problems Problem Type SNOMED Code ICD Code Onset Dates Problem Status W/U Status Risk Notes Problem 91265935 Nausea and vomit ing, unspecified vomiting type (R11.2) Active confirmed Problem 990000991 Gastroesophageal reflux disease without esophagitis (K21.9) Active confirmed Problem 638674467 Colon cancer screening (Z12.11) Active confirmed Vital Signs Blood pressure systolic 00 mm Hg 07/07/19 25 Blood pressure diastolic 00 mm Hg 025 Height 5 ft 9 in in 07/07/2024 Weight 197 lbs 07/07/2024 BMI 29.09 kg/m2 07/07/2024 Encounters Encounter Location Date Provider Diagnosis [facility] [address] [place] [address] 07/07/2024 Taj Neri Jr Nausea and vomiting, unspecified vomiting type R11.2 ; Gastroesophageal reflux disease without esophagitis K21.9 and Colon cancer screening Z12.11 Assessments Encounter Date Diagnosis (ICD Code) Assessment Notes Treatment Notes Treatment Clinical Notes Section Notes 07/07/2024 Nausea and vomiting, unspecified vomiting type (ICD-10 - R11.2) We discussed gastroesophageal reflux disease today. We discussed diet, lifestyle and weight management. We recommended further evaluation with upper endoscopy. He is due for colon cancer screening and colonoscopy will be arranged at the same time. He understands risks and benefits and agrees to proceed. He is advised to stop aspirin, turmeric, Ozempic one week before the procedure he should stop metformin and furosemide the day before the procedure 07/07/2024 Gastroesophageal reflux disease without esophagitis (ICD-10 - K21.9) We discussed gastroesophageal reflux disease today. We discussed diet, lifestyle and weight management. We recommended further evaluation with upper endoscopy. He is due for colon cancer screening and colonoscopy will be arranged at the same time. He understands risks and benefits and agrees to proceed. He is advised to stop aspirin, turmeric, Ozempic one week before the procedure he should stop metformin and furosemide the day before the procedure 07/07/2024 Colon cancer screening (ICD-10 - Z12.11) We discussed gastroesophageal reflux disease today. We discussed diet, lifestyle and weight management. We recommended further evaluation with upper endoscopy. He is due for colon cancer screening and colonoscopy will be arranged at the same time. He understands risks and benefits and agrees to proceed. He is advised to stop aspirin, turmeric, Ozempic one week before the procedure he should stop metformin and furosemide the day before the procedure Plan Of Treatment Future Test Test Name Order Date UPPER GI ENDOSCOPY 07/07/2024 COLONOSCOPY 07/07/2024 Next Appt Details Follow Up: 1 Year, Reason: Provider Name:Taj marti , 11/09/2024 01:00:00 PM, [address] [place] [address] , [place], [place], [phone], Progress Notes * GIOVANNI HERNANDE[birth year]DOB:[birth year] (69 yo M)Acc No.[id number]:07/07/2024 Progress Notes Patient:?GIOVANNI HERNANDEZ Provider:?Taj Neri MD :1955???Age:69 Y???Sex:Male Eric e:07/07/2024 Address:[address] [place] [address] Pcp:Camilo Hayward D.O. Subjective: * Chief Complaints: * ???1. Patient presents today for a colon screening. * HPI: ???New symptom(s):? 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 He has a history of gastroesophageal reflux disease with substernal burning precipitated by typical foods. Lately he's been having some issues with vomiting. There is no hematemesis, melena, or hematochezia. He has no dysphagia. ?He is due for colon cancer screening. He last underwent colonoscopy in 2010 with removal of a hyperplastic polyp. He has no complaints of rectal bleeding or change in his bowel habits. Weight and appetite have been suppressed because of his use of Ozempic. Weight has decreased from 265-197 during this time. * ROS:?General/Constitutional:?Change in appetite?denies.?Fatigue?denies.?ENT:?Patient denies?difficulty swallowing.?Respiratory:?Patient denies?shortness of breath.?Cardiovascular:?Patient denies?chest pain.?Gastrointestinal:?Comments?See HPI for details.?Genitourinary:?Difficulty urinating?denies.?Incontinence?denies.?Musculoskeletal:?Patient denies?muscle aches.?Skin:?Patient denies?pruritis.?Neurologic:?Patient denies?low back pain.?Psychiatric:?Patient denies?mental or physical abuse.? * Medical History:?Hypertensio n and, Allergic rhinitis, Diabetes mellitus type 2, Coronary artery disease with history of [place] and CABG, Gout, Chronic kidney disease, Colonoscopy, 03/09, hyperplastic polyp, ten-year followup, Hyperlipidemia, JUAN C. * Surgical History:?tonsillect saturnino and adenoidectomy , spinal surgery , triple bypass . * Family History:?Father: dece ased, diagnosed with HTN (hypertension), Diabetes, Heart disease.?Mother: , diagnosed with HTN (hypertension), Diabetes, Heart disease.? no known hx of colon cancer sister age 33 heart attack. * Social History:?Tobacco Use:?Tobacco Use/Smoking?Patient is a?former smoker,?How long has it been since you last smoked??5-10 years.?Drugs/Alcohol:?Alcohol Screen?Did you have a drink containing alcohol in the past year??No,?Points?0,?Interpretation?Negative.?Miscellaneous:?Marital status: single. Occupation: retired. * Medications:?Taking Aspirin 81 , Taking Turmeric , Taking Allopurinol 300 MG Tablet Oral , Taking metFORMIN HCl 1000 MG Tablet Oral , Taking Atorvastatin Calcium 80 MG Tablet TAKE 1 TABLET BY MOUTH EVERY DAY Oral , Taking Vitamin D (Ergocalciferol) 1.25 MG (03229 UT) Capsule TAKE 1 CAPSULE (50,000 UNITS TOTAL) BY MOUTH EVERY 30 DAYS Oral , Taking Carvedilol 12.5 MG Tablet TAKE 1.5 TABLETS (18.75 MG TOTAL) BY MOUTH 2 (TWO) TIMES A DAY WITH MEALS. Oral , Taking Ozempic (1 MG/DOSE) 4 MG/3ML Solution Pen-injector Subcutaneous , Taking amLODIPine Besylate 10 MG Tablet TAKE 1 TABLET BY MOUTH EVERY DAY Oral , Taking Furosemide 40 MG Tablet Oral , Taking Ezetimibe 10 MG Tablet Oral , Medication List reviewed and reconciled with the patient * Allergies:?N.K.D.A. Objective: * Vitals:?Wt: 197 lbs, Ht: 5 f t 9 in, BMI:29.09 Index, BP: 00/00 mm Hg. * Examination: ???General Examination: ?GENERAL APPEARANCE:?in no acute distress.?HEAD:?normocephalic.?EYES:?sclera non-icteric.?ORAL CAVITY:?mucosa moist.?NECK/THYROID:?no lymphadenopathy.?SKIN:?anicteric.?HEART:?S1, S2 normal, no murmurs.?LUNGS:?clear to auscultation bilaterally.?CHEST:?normal shape and expansion.?ABDOMEN:?soft, nontender, nondistended, bowel sounds present, no organomegaly .?EXTREMITIES:?no clubbing, cyanosis, or edema.?PSYCH:?cognitive function intact.? Assessment: * Assessment: 1.?Nausea and vomiting, unsp ecified vomiting type - R11.2 (Primary)?2.?Gastroesophageal reflux disease without esophagitis - K21.9?3.?Colon cancer screening - Z12.11? We discussed gastroesophagea l reflux disease today. We discussed diet, lifestyle and weight management. We recommended further evaluation with upper endoscopy. He is due for colon cancer screening and colonoscopy will be arranged at the same time. He understands risks and benefits and agrees to proceed. He is advised to stop aspirin, turmeric, Ozempic one week before the procedure he should stop metformin and furosemide the day before the procedure. Plan: * Treatment: ?Procedure: COLONOSCOPY (Ordered for 07/07/2024)* sched for 07/27/24 at 1:00 pm macmiralax 2.?Gastroesophageal reflux disease without esophagitis?Procedure: UPPER GI ENDOSCOPY (Ordered for 07/07/2024)* sched for 07/27/24 at 1:00 pm mac ?Procedure: COLONOSCOPY (Ordered for 07/07/2024)* sched for 07/27/24 at 1:00 pm macmiralax 3.?Colon cancer screening?Procedure: UPPER GI ENDOSCOPY (Ordered for 07/07/2024)* sched for 07/27/24 at 1:00 pm mac ?Procedure: COLONOSCOPY (Ordered for 07/07/2024)* sched for 07/27/24 at 1:00 pm macmiralax * Procedure Codes:?3017F COLOR ECTAL CA SCREEN DOC REV, G9903 Pt scrn tbco id as non user, G9744 PATIENT NOT ELIG D/T ACTIVE DX HTN * Preventive Medicine:? ??Counseling:?Care goal follow-up plan:?Above Normal BMI Follow-up?Giving encouragement to exercise,?BMI management provided?Yes.? ??Screenings:?Fall Risk Screening?Fall Risk Assessment:?No falls in the past year,?Screening:?No falls in the past year,?Assessment:?Not performed, no reason specified,?Plan of Care:?Not documented, no reason specified.? 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 He has a history of gastroesophageal reflux disease with substernal burning precipitated by typical foods. Lately he's been having some issues with vomiting. There is no hematemesis, melena, or hematochezia. He has no dysphagia. He is due for colon cancer screening. He last underwent colonoscopy in 2010 with removal of a hyperplastic polyp. He has no complaints of rectal bleeding or change in his bowel habits. Weight and appetite have been suppressed because of his use of Ozempic. Weight has decreased from 265-197 during this time. Examination Category Sub-Category Detail Notes Category Not es General Examination GENERAL APPEARANCE: in no acute di stress HEAD: normocephalic EYES: sclera non-icteric NECK/THYROID: no lymphadenopathy HEART: S1, S2 normal, no mu rmurs CHEST: normal shape and exp ansion LUNGS: clear to auscultatio n bilaterally ABDOMEN: soft, nontender, non distended, bowel sounds present, no organomegaly SKIN: anicteric EXTREMITIES: no clubbing, cyanosi s, or edema PSYCH: cognitive function i ntact ORAL CAVITY: mucosa moist
--- OUTSIDE RECORDS SUMMARY | 2024-09-29 06:58 | XMS_ITS | Patient Health Record ---
Author Organization [facility] Address [address] [place] [address] Care Team Providers Care Care Management Assistant Name Role Phone Camilo Hayward D.O. Primary Care Provider Unavail able Taj Neri Jr Unavailable Allergies No Known Allergies Results Component Value Reference Range Notes Glucose, Whole Blood Reviewed date:07/27/2024 04:44:26 PM Interpretation: Performing Lab:[facility], [address] [place] [id number] Notes/Report: Glucose, Whole Blood 95 60-115 mg/dL METER # : [id number] Pathology Reviewed date:08/04/2024 01:22:16 PM Interpretation: Performing Lab:[facility], [address] [place] [id number] Notes/Report: ----- Name: Alex Hernandez Age/Sex: 69/M : 1955 Unit#: [id number] Attend Dr: Taj Neri MD Re07/27/24 Status : [facility] Location: [facility] Disch: ----- SPEC : [id number] RECD: 07/27/24 STATUS: JALEESA VO NUM: [id number] RAY: 07/27/24-[address] [facility] [address]: Taj Neri MD ENTERED: 07/27/24 39 SP TYPE: Surgical OTHR DR: Camilo Hayward DO ORDERED: HE Stain/15 , Gross Micro L4/5, IHC, H. pylori Addendum Addendum 1 Entered: 08/03/24 Immunostain for H. p ylori on A is negative. Control stains appropriately. Addendum Signed (signature on file) Yojana Keyana 08/03/24 1116 ----- Diagnosis A. Gastric antrum, biopsy: Gastric antral mucosa with mild reactive changes and minimal chronic inactive gastritis; negative for intestinal metaplasia and dysplasia. B. Colon, at 80 cm, polyps: Tubular adenomas (5 pieces); negative for high-grade dysplasia and carcinoma. C. Colon, at 70 cm, polyp: Tubular adenoma; negative for high-grade dysplasia and carcinoma. D. Colon, at 40 cm, polyp: Polypoid colonic mucosa with no specific change; no adenomatous dysplasi a seen. E. Colon, rectal luis antonio yps: Hyperplastic polyps, three, inflamed. Comment: (A): Immunostain for H. pylori pending; addendum to follow. Clinical History Pre-Op Dx: Screening and GERD Post-Op Dx: Erosive esophagitis, gastritis, colon polyps Microscopic Description Microscopic sections reviewed. CONTINUED ON NEXT PAGE ----- Name: Alex Hernandez Age/Sex: 69/M : 1955 Unit#: [id number] Attend Dr: Taj Neri MD Re07/27/24 Status : [facility] Location: [facility] Disch: ----- SPEC : [id number] RECD: 07/27/245 STATUS: JALEESA VO NUM: [id number] RAY: 07/27/24-[address] [facility] [address]: Taj Neri MD ENTERED: 07/27/24-14 39 SP TYPE: Surgical OTHR DR: Camilo Hayward DO ORDERED: HE Stain/15 , Gross Micro L4/5, IHC, H. pylori Material Received A. Antral bx's B. Colon polyps at 80 C. Colon polyp at 70 D. Colon polyp at 40 E. Rectal polyps Gross Description Received in five parts. Part A: Received in formalin labeled ?antral bx's? are 2 jasso-pink rectangular tissue fragments each measu ring 0.35 cm submitted in toto in a cassette labeled A. Part B: Received in formalin labeled ?polyps at 80? are 5 jasso-pink papular tissue fragments ranging from 0.25-0. 35 cm, submitted in toto in a cassette labeled B. Part C: Received in formalin labeled ?polyp at 70? is a 0.6 x 0.5 x 0.2 cm jasso-pink papular tissue fragment, submitted in toto in a cassette labeled C. Part D: Received in formalin labeled ?colon polyp at 40? are 2 jasso-pink irregular tissue fragments each measu ring 0.25 cm, submitted in toto in a cassette labeled D. Part E: Received in formalin labeled ?rectal polyps? are 3 jasso-pink irregular tissue fragments ranging fr om 0.2-0.3 cm, submitted in toto in a cassette labeled E. CEDS Special studies orde red and performed: Immunostain for H. pylori on A1. Copies To: Camilo Hayward DO [address] [address] Taj Neri MD [facility] [address] [place] [address] [address] [place] [address] CONTINUED ON NEXT PAGE ----- Name: ShantellonaAlex Age/Sex: 69/M : 1955 Unit#: [id number] Attend Dr: Taj Neri MD Re07/27/24 Status : [facility] Location: [facility] Disch: ----- SPEC : [id number] RECD: 07/27/240035 STATUS: JALEESA VO NUM: [id number] RAY: 07/27/24-[address]: Taj Neri MD ENTERED: 07/27/24-14 39 SP TYPE: Surgical OTHR DR: Camilo Hayward DO ORDERED: HE Stain/15 , Gross Micro L4/5, IHC, H. pylori ----- Signed (signature on file) Yojana [place] 07/28/24 1624 ----- END OF REPORT Glucose, Whole Blood Reviewed date:07/27/2024 04:44:21 PM Interpretation: Performing Lab:[facility], [address] [place] [id number] Notes/Report: Glucose, Whole Blood 88 60-115 mg/dL METER # : [id number] Reason For Referral No Information Medications Medication SIG (Take, Route, Frequency, Duration) Notes Start Date End Date Status Turmeric Active Aspirin 81 Active metFORMIN HCl 1000 MG Oral for 90 Active Allopurinol 300 MG Oral for 90 Active Vitamin D (Ergocalciferol) 1.25 MG (63863 UT) TAKE 1 CAPSULE (50,000 UNITS TOTAL) [...] 40 MG Oral for 90 A ctive Social History Tobacco Use: Social History Observation [...] Problem Status W/U Status Risk Notes Problem 274681979 Colon cancer screening (Z12.11) Active confirmed Problem Gastro-esophage al reflux disease without esophagitis (364944764) Gastro-esophageal reflux disease without esophagitis (K21.9) Active confirmed Problem 336738789 Gastroesophageal reflux disease without esophagitis (K21.9) Active confirmed Problem 79352186 Nausea and vomiting, unspecified vomiting type (R11.2) Active confirmed Vital Signs Blood pressure diastolic 00 mm Hg 07/07/2024 Height 5 ft 9 in in 07/07/2024 Blood pressure systolic 00 mm Hg 07/07/2024 Weight 197 lbs 07/07/2024 BMI 29.09 kg/m2 07/07/2024 Encounters Encounter Location Date Provider Diagnosis [facility] Outpatient [address] [place] [phone] 07/27/2024 Taj Neri Jr Colon cancer screening Z12.11 ; Colon polyps K63.5 ; Intractable vomiting with nausea, unspecified vomiting type R11.2 and Gastro-esophageal reflux disease without esophagitis K21.9 [facility] [address] [place] [phone] 07/07/2024 Taj Neri Jr Nausea and vomiting, unspecified vomiting type R11.2 ; Gastroesophageal reflux disease without esophagitis K21.9 and Colon cancer screening Z12.11 [facility] [address] [place] [phone] 08/04/2024 Taj Neri Jr Assessments Encounter Date Diagnosis (ICD Code) Assessment Notes Treatment Notes Treatment Clinical Notes Section Notes 07/27/2024 Colon cancer screening (ICD-10 - Z12.11) 07/27/2024 Colon polyps (ICD-10 - K63.5) 07/07/2024 Gastroesophageal reflux disease without esophagitis (ICD-10 [...] furosemide the day before the procedure 07/07/2024 Nausea and vomiting, unspecified vomiting type [...] and furosemide the day before the procedure 07/27/2024 Intractable vomiting with nausea, unspecified vomiting type (ICD-10 - R11.2) 07/07/2024 Colon cancer screening (ICD-10 - Z12.11) [...] and furosemide the day before the procedure 07/27/2024 Gastro-esophageal reflux disease without esophagitis (ICD-10 - K21.9) Plan Of Treatment Future Test Test Name Order Date UPPER GI ENDOSCOPY 07/07/2024 COLONOSCOPY 07/07/2024 Next Appt Details Provider Name:Taj marti , 11/09/2024 01:00:00 PM, [address] [place] [address], [phone], Insurance Providers Payer Name Payer Address Payer Phone Subscriber Number Group Number Insured Name Patient Relationship to Insured Coverage Start Date Coverage End Date [facility] [address] [place] [phone] [id number] SANTI HERNANDEZ Self - patient is the insured Medical (General) History Medical History History ICD Code Hypertension and Allergic rhinitis Diabetes mellitus type 2 Coronary artery disease with history of [place] and CABG Gout Chronic kidney disease Colonoscopy, 03/09, hyperplastic polyp, t en-year followup Hyperlipidemia JUAN C Surgical History Surgery Date(Month/Year) tonsillectomy and adenoidectomy spinal surgery triple bypass
--- OUTSIDE RECORDS SUMMARY | 2024-09-29 06:58 | XMS_ITS | Encounter Summary ---
Author Organization [facility] Address [address] [address] Phone Care Team Providers Care Spiral Runner Name Role Phone Heidi Hernandez Primary Care Provider [phone] Reason for Visit * Reason Comments Med Change Request Encounter Details Date Type Department Care Team ([facility] Contact Info) Description 06/30/2024 Refill [facility] [address] [place] [address] Fer Leigh MD [address] [address] Social History Tobacco Use Types [...] Office Visit [facility] [address] [place] [address] Fer Leigh MD [address] [address] documented as of this encounter Visit Diagnoses Not on filedocumented in this encounter Care Teams Spiral Runner Relationship Specialty Start Date End Date Heidi Hernandez FNP [address] [place] PCP - General 07/09/20 documented as of this encounter
--- OUTSIDE RECORDS SUMMARY | 2024-09-29 06:58 | XMS_ITS | Encounter Summary ---
Author Organization [facility] Address [address] [address] Phone Care Team Providers Care Dive Superintendent Name Role Phone Heidi Hernandez Primary Care Provider [phone] Encounter Details Date Type Department Care Team ([facility] Contact Info) Description 09/15/2024 Telephone [facility] [address] [address] Sophia Puentes [place] [address] [facility] [address] [place] [address] Social History Tobacco Use Types Packs/Day Years [...] Office Visit [facility] [address] [place] [address] Fer Leigh MD [address] [address] documented as of this encounter Visit Diagnoses Not on filedocumented in this encounter Care Teams Dive Superintendent Relationship Specialty Start Date End Date Heidi Hernandez FNP [address] [place] [address] DR WILFREDO [place], [place] PCP - General 07/09/20 documented as of this encounter
--- OUTSIDE RECORDS SUMMARY | 2024-09-29 06:58 | XMS_ITS | Clinical Summary ---
Author Organization [facility] Address [address] [place] [address] Phone Care Team Providers Care Pilot Manager Name Role Phone Heidi Hernandez RETAIL ADVERTISING ACCOUNT EXECUTIVE Primary Care Provider [phone] Allergies Active Allergy Reactions Criticality Noted Date Comments Sulfa Antibiotics 03/21/2021 Medications amLODIPine (NORVASC) 10 MG tablet Take 1 tablet by mouth 1 (one) time each day Active aspirin (ST GIOVANNI) 81 MG EC tablet Take 1 tablet by mouth 1 (one) time each day Active atorvastatin (LIPITOR) 80 MG tablet Take 80 mg by mouth 1 (one) time each day 07/10/19 21 Active carvedilol (COREG) 12.5 MG tablet Take 1.5 tablets by mouth 2 (two) times a day Active ezetimibe (ZETIA) 10 MG tablet Take 10 mg by mouth 1 (one) time each day 07/31/19 21 Active furosemide (LASIX) 40 MG tablet Take 1 tablet by mouth 1 (one) time each day Active sildenafil (VIAGRA) 100 MG tablet Take 100 mg by mouth 10/14/19 20 Active psyllium (METAMUCIL) 0.52 g capsule Take 0.104 g by mouth 2 (two) times a day Active spironolactone (ALDACTONE) 25 MG tablet TAKE 1 TABLET BY MOUTH EVERY DAY 90 tablet 5 02/01/20 22 Active metFORMIN (GLUCOPHAGE) 1000 MG tablet Take [...] mg under the skin per week Active Dapagliflozin Propanediol (Farxiga) 10 MG tablet Take 10 mg by mouth in the morning. 90 tablet 3 06/30/19 25 Active ergocalciferol 1.25 MG (81353 UT) capsule TAKE 1 CAPSULE BY MOUTH EVERY 30 DAYS 3 capsule 09/17/19 25 Active ergocalciferol 1.25 MG (23572 UT) capsule TAKE 1 CAPSULE (50,000 UNITS TOTAL) BY MOUTH EVERY 30 DAYS 3 capsule 05/16/20 24 025 Discontinued(Re order (does not appear on AVS)) Empagliflozin (Jardiance) 10 MG tablet Take 10 mg by mouth 1 (one) time each day in the morning 90 tablet 2 06/30/19 25 025 ergocalciferol 1.25 MG (70825 UT) capsule Take 1 capsule (50,000 Units total) by mouth every 30 (thirty) days 3 capsule 09/16/19 25 025 Discontinued Active Problems Problem Noted Date Diagnosed Date Stage 3b chronic kidney disease 06/04/2023 Type 2 diabetes mellitus wit h diabetic chronic kidney disease 06/04/2023 Hypertension 09/13/2020 Hypertensive heart and renal disease with (congestive) heart failure 09/13/2020 Resolved Problems Problem Noted Date Diagnosed Date Resolved Date Allergic rhinitis 09/13/2020 03/21/2021 Anxiety 09/13/2020 03/21/2021 Depressive disorder 09/13/2020 03/21/20 Sleep apnea 09/13/2020 03/21/2021 Arteriosclerosis of coronary artery bypass graft 03/07/2019 03/21/2021 Encounters Date Type Department Care Team Description 09/15/2024 Refill [facility] [address] [address] Fer Leigh MD 09/15/2024 Telephone [facility] [address] [address] Sophia Puentes MA from Last 3 Months Family History Medical [...] Visit [facility] [address] [place] [address] Fer Leigh MD [address] [facility] [address] [place] [phone] Health Maintenance Due Date Last Done Comments [...] patient's age to complete this topic Insurance Care Teams Pilot Manager Relationship Specialty Start Date End Date Heidi Hernandez FNP [address] [place] [address] [address] [place], [place] PCP - General 07/09/20
[2024-09-29 07:18] LABS: MANUAL DIFF FLAG NO
[2024-09-29 07:46] LABS: Basophils Absolute Auto 0.1 X10*3/uL (0.0-0.2); Basophils Percent Auto 0.5 % (0-2); Eosinophils Absolute Auto 0.2 X10*3/uL (0.0-0.4); Eosinophils Percent Auto 1.6 % (0-4); Hematocrit 41.8 % (42.0-52.0); Hemoglobin 14.4 g/dl (14.0-18.0); Imm Gran Abs Auto 0.22 X10*3/uL (0.00-0.03); Imm Gran Pct Auto 1.8 % (0.0-0.4); Lymphocytes Absolute Auto 2.1 X10*3/uL (1.2-4.9); Lymphocytes Percent Auto 16.9 % (20-40); Mean Corpuscular HGB Conc 34.4 g/dl (31.0-36.0); Mean Corpuscular Hemoglobin 29.9 pg (27.0-33.0); Mean Corpuscular Volume 86.9 fL (80.0-98.0); Mean Platelet Volume 11.8 fL (9.4-12.4); Monocytes Absolute Auto 1.4 X10*3/uL (0.1-1.2); Monocytes Percent Auto 11.1 % (2-11); Neutrophils Absolute Auto 8.5 x10*3/uL (2.0-8.3); Neutrophils Percent Auto 68.1 % (45-73); Platelet Count 188 X10*3/uL (160-400); Red Blood Count 4.81 X10*6/uL (4.60-5.80); Red Cell Distribution Width 14.3 % (11.0-16.0); White Blood Count 12.5 X10*3/uL (4.8-10.8)
[2024-09-29 07:48] LABS: Estimated Average Glucose 100 mg/dL; Hemoglobin A1C 118.7572 umol/L; Hemoglobin A1c % 5.1 % (<6.0); Total Hemoglobin (HGBA1C) 3721.2616 umol/L
[2024-09-29 07:51] LABS: Appearance Urine Clear; Color Urine Yellow; Glucose Urine UA Negative (Negative); Leukocyte Esterase Urine Negative (Negative); Nitrite Urine Negative (Negative); PH 5.5 (5.0-9.0); Specific Gravity - Urine 1.025 (1.005-1.025); UMIC TRIGGER UA YES; Urine Blood Negative (Negative); Urine Ketones Trace mg/dL (Negative); Urine Protein 30 (1+) mg/dL (Neg-Trace)
[2024-09-29 08:01] LABS: Bacteria Urine None Seen (None Seen); RBC Urine 0-2 /HPF (0-2); Squamous Epithelial Cell Urine 0-2 /HPF (0-2); WBC Urine 0-5 /HPF (0-5)
[2024-09-29 08:11] LABS: Albumin Level 3.8 g/dL (3.5-5.0); Anion Gap 14 (12-20); Blood Urea Nitrogen 31 mg/dL (9-16); Calcium 9.1 mg/dL (8.4-10.2); Carbon Dioxide 21 mmol/L (22-29); Chloride 109 mmol/L (96-108); Estimated Glomerular Filt Rate 46; Magnesium 1.8 mg/dL (1.6-2.6); Phosphorus 2.8 mg/dL (2.7-4.5); Sodium 140 mmol/L (135-145)
[2024-09-29 08:13] LABS: Alanine Aminotransferase 15 U/L (0-40); Albumin Level 3.8 g/dL (3.5-5.0); Alkaline Phosphatase 101 U/L (39-117); Anion Gap 11 (12-20); Aspartate Amino Transferase 20 U/L (5-37); Bilirubin Total 0.8 mg/dL (0.0-1.0); Blood Urea Nitrogen 28 mg/dL (9-16); Calcium 9.1 mg/dL (8.4-10.2); Carbon Dioxide 21 mmol/L (22-29); Chloride 110 mmol/L (96-108); Cholesterol 78 mg/dL (<200); Estimated Glomerular Filt Rate 49; Glucose Random 90 mg/dL (60-115); HDL Cholesterol 17 mg/dL (>40); LDL Cholesterol Calculated 38 mg/dL (<100); Potassium 3.9 mmol/L (3.3-5.1); Sodium 138 mmol/L (135-145); Total Protein 6.8 g/dL (6.5-8.0); Triglycerides 117 mg/dL (<150)
[2024-09-29 08:22] LABS: Creatinine Urine 223.95 mg/dL; Microalbum/Creatinine Ratio Ur 82.6 ug/mg cr (<30); Protein/Creatinine Ratio, Ur 0.19 (<0.2); Total Protein Urine Random 42 mg/dL (<12)
[2024-09-29 08:28] LABS: TSH reflex Free T4 1.73 uIU/mL (0.32-4.0); Vitamin D 25-OH Total 25.4 ng/mL (>30)
== END 2024-09-29 06:55 | disposition home or self-care (01) ==
LOC: HO.LAB 06:54
PROVIDERS: Absent Provider Family Medicine; PCP Family Medicine; Visit Provider Internal Medicine Nephrology
DX: E11.22 Type 2 diabetes mellitus with diabetic chronic kidney disease (principal); I15.9 Secondary hypertension, unspecified; I13.0 Hypertensive heart and chronic kidney disease with heart failure and stage 1 through stage 4 chronic kidney disease, or unspecified chronic kidney disease; N18.32 Chronic kidney disease, stage 3b; I25.810 Atherosclerosis of coronary artery bypass graft(s) without angina pectoris; G47.30 Sleep apnea, unspecified; R73.09 Other abnormal glucose; R53.83 Other fatigue
CPT/HCPCS: 36415; 80051; 80053; 80061; 81001; 82040; 82043; 82306; 82310; 82565; 82570; 83036; 83735; 83970; 84100; 84156; 84443; 84520; 85025

== ENCOUNTER 2024-10-04 08:56 | Outpatient (AMB) | payer MEDICARE, SELFPAY ==
--- NOTE | 2024-10-04 09:19 | MHC.OFFVIS ---
Vital Signs 10/04/24 09:24 Height 5 ft 7 in Weight 187 lb 6.287 oz BMI 29.3 BP 120/76 Blood Pressure Location Lt brachial Position Sitting Pulse 89 Intake Visit Reasons: 1 yr follow up Blueprint Blocker Required: No Accompanied by: Self / Same As Patient Allergies Sulfa (Sulfonamide Antibiotics) Adverse Reaction (Mild, Verified 10/04/24 09:24) Nausea hydrocodone Adverse Reaction (Unknown, Verified 10/04/24 09:24) Nausea Medication List - Last Reconciled 10/04/24 by Min Vanegas MD allopurinol 300 mg PO DAILY amlodipine 10 mg PO DAILY aspirin 81 mg PO DAILY atorvastatin 80 mg PO DAILY carvedilol 18.75 mg (1.5 x 12.5 mg) PO BID cholecalciferol (vitamin D3) 1,250 mcg PO QWEEK colchicine Take 2 tabs once at the onset of gout attack. NS ezetimibe 10 mg PO DAILY furosemide 40 mg PO DAILY 90 days metformin 1,000 mg PO BID psyllium 1 tsp PO DAILY semaglutide (Ozempic) 0.25 mg subcut QWEEK sildenafil 100 mg PO DAILY PRN spironolactone 25 mg PO DAILY HPI Comments Details: Giovanni returns for follow-up regarding coronary disease, bypass surgery as well as ischemic cardiomyopathy. In the past, due to symptoms of heart failure as well as low EF on echocardiogram, he underwent cardiac catheterization. This showed multivessel CAD, leading to bypass surgery. Since last seen, he states he is feeling very good. No cardiac symptoms. Blood pressure is well controlled. In fact he states sometimes it does go low as well. [facility] Medical History (Updated 07/27/24 @ 12:36 by Cheryl Campo RN) Myocardial infarct Carpal tunnel syndrome Gout Right bundle branch block JUAN C on CPAP Other and unspecified hyperlipidemia Essential hypertension Atherosclerotic cardiovascular disease Ischemic cardiomyopathy Surgical History (Updated 10/04/24 @ 09:27 by Loree Collins CMA) H/O colonoscopy History of tonsillectomy History of knee surgery H/O microdiscectomy History of cardiac catheterization History of coronary artery bypass graft (~06/2018) Family History Father No problems noted. Mother No problems noted. Social History (Updated 10/04/24 @ 09:27 by Loree Collins CMA) Alcohol intake: never Patient Tobacco Use Status: Former Tobacco user Years Smoked: Quit 3 years ago Review of Systems Const Denies chills, Denies fatigue, Denies fever(s), Denies weight gain and Denies weight loss ENT Denies dizziness Card Denies chest pain, Denies leg edema, Denies lightheadedness, Denies palpitations, Denies dyspnea on exertion, Denies orthopnea and Denies other Resp Denies cough and Denies dyspnea on exertion GI Denies hematochezia and Denies change in stool character Musc Denies abnormal gait, Denies muscle weakness, Denies numbness, Denies radiating pain into limb and Denies tingling Neuro Denies abnormal gait, Denies dizziness, Denies numbness and Denies tingling Endo Denies fatigue and Denies palpitations Physical Exam Vital Signs: Last Vital Signs Pulse 89 10/04/24 09:24 BP 120/76 10/04/24 09:24 BMI result Body Mass Index 29.3 Const General: comfortable and no acute distress Orientation/consciousness: patient oriented x3 HEENT Other: Unremarkable Head: Yes normal to inspection Neck Neck: Yes normal visual inspection Chest Chest palpation & inspection: normal inspection of the chest Resp Auscultation: clear to auscultation bilaterally Cardio Palpation: normal PMI Heart sounds: S1 normal heart sound present, S2 normal heart sound present, no gallops, no murmurs and no rubs GI Palpation (GI): Soft to palpation Back/Spine/Pelvis Other: unremarkable Skin General skin exam: no rashes or lesions noted Neuro General: patient oriented x3 Extrem General: Yes normal to inspection Psych Mental Status: mental status grossly normal Office Procedures EKG Details: EKG with underlying sinus rhythm at 89/Min; HI prolongation to 260 milliseconds; right bundle-branch block; PVCs. 73160-Mowydojrjzcmqkwvt, Complete Assessment & Plan Assessment & Plan (1) Atherosclerotic cardiovascular disease: Code(s): I25.10 - Atherosclerotic heart disease of [place] coronary artery without angina pectoris Category: Medical Plan: Cardiac catheterization with 3 vessel disease, chronic total occlusion of RCA. He is status post CABG. Right-sided PDA was very small and given lack of viability, not revascularized. Doing well. No angina. Continue aspirin/statins. (2) Ischemic cardiomyopathy: Code(s): I25.5 - Ischemic cardiomyopathy Category: Medical Plan: Recovered EF. Clinically, no heart failure. (3) Essential hypertension: Code(s): I10 - Essential (primary) hypertension Category: Medical Plan: Blood pressure improvement could be due to weight loss. Hydralazine was stopped previously. We can cut back on the carvedilol considering the fact he also has conduction system disease. He will monitor blood pressure/heart rate. Rebound tachycardia is possible. (4) Other and unspecified hyperlipidemia: Code(s): E78.5 - Hyperlipidemia, unspecified Category: Medical Plan: Continue statins and Zetia. Last LDL 38 mg/dL. (5) Right bundle branch block: Code(s): I45.10 - Unspecified right bundle-branch block Category: Medical Plan: He has first-degree heart block as well as right bundle-branch block. To be monitored for any progressive heart blocks. We discussed this today. Medications: New carvedilol (Coreg) must administer with a meal/food 6.25 mg PO BID 180 tabs 3RF 90 days Discontinued carvedilol Discontinued Reason: Doctor's Order 18.75 mg (1.5 x 12.5 mg) PO BID 270 tabs 3RF Coding Level of Care Code Est Pt Level 4 (19469) Complex EM visit Add On G2211 Diagnoses Atherosclerotic cardiovascular disease I25.10 Ischemic cardiomyopathy I25.5 Essential hypertension I10 Other and unspecified hyperlipidemia E78.5 Right bundle branch block I45.10 CPT Codes EKG - CPT: 14363-Zvnvytcgnxeairezb, Complete ([id number])
[2024-10-04 09:24] VITALS: BP 120/76; PULSE 89; BMI 29.3
--- OUTSIDE RECORDS SUMMARY | 2024-10-04 09:34 | XMS_ITS | Patient Health Record ---
Author Organization [facility] Address [address] [place] [phone] Care Team Providers Care Executive Manager Name Role Phone Camilo Hayward D.O. Primary Care Provider Unavail able Taj Neri Jr Unavailable Allergies No Known Allergies Results Component Value Reference Range Notes Glucose, Whole Blood Reviewed date:07/27/2024 04:44:26 PM Interpretation: Performing Lab:[facility], [address] [place] [phone] Notes/Report: Glucose, Whole Blood 95 60-115 mg/dL METER # : [id number] Pathology Reviewed date:08/04/2024 01:22:16 PM Interpretation: Performing Lab:[facility], [address] [place] [phone] Notes/Report: ----- Name: Alex Hernandez Age/Sex: 69/M : 1955 Unit#: [id number] Attend Dr: Taj Neri MD Re07/27/24 Status : [facility] Location: [facility] Disch: ----- SPEC : [id number] RECD: 07/27/24 STATUS: JALEESA VO NUM: [id number] RAY: 07/27/24-1323 [facility] DR: Taj Neri MD ENTERED: 07/27/24 39 [...] Alex Hernandez Age/Sex: 69/M : 1955 Unit#: [id number] Attend Dr: Taj Neri MD Re07/27/24 Status : [facility] Location: [facility] Disch: ----- SPEC : [id number] RECD: 07/27/245 STATUS: JALEESA VO NUM: [id number] RAY: 07/27/24-1323 [facility] DR: Taj Neri MD ENTERED: 07/27/24-14 39 [...] A1. Copies To: Camilo Hayward DO [address] [address] Taj Neri MD [facility] [address] [place] [address] [address] [place] [address] CONTINUED ON NEXT PAGE ----- Name: ShantellonaAlex Age/Sex: 69/M : 1955 Unit#: [id number] Attend Dr: Taj Neri MD Re07/27/24 Status : [facility] Location: [facility] Disch: ----- SPEC : [id number] RECD: 07/27/245767 STATUS: JALEESA VO NUM: [id number] RAY: 07/27/24-[address]: Taj Neri MD ENTERED: 07/27/24-14 39 SP TYPE: Surgical OTHR DR: Camilo Hayward DO ORDERED: HE Stain/15 , Gross Micro L4/5, IHC, H. pylori ----- Signed (signature on file) Yojana Woolstock 07/28/24 1624 ----- END OF REPORT Glucose, Whole Blood Reviewed date:07/27/2024 04:44:21 PM Interpretation: Performing Lab:[facility], [address] [place] [phone] Notes/Report: Glucose, Whole Blood 88 60-115 mg/dL METER # : [id number] Reason For Referral No Information Medications Medication SIG (Take, Route, Frequency, Duration) Notes Start Date End Date Status Turmeric Active Aspirin 81 Active metFORMIN HCl 1000 MG Oral for 90 Active Allopurinol 300 MG Oral for 90 Active Vitamin D (Ergocalciferol) 1.25 MG (41570 UT) TAKE 1 CAPSULE (50,000 UNITS TOTAL) [...] Problem Status W/U Status Risk Notes Problem 100248677 Colon cancer screening (Z12.11) Active confirmed Problem Gastro-esophage al reflux disease without esophagitis (134595797) Gastro-esophageal reflux disease without esophagitis (K21.9) Active confirmed Problem 112612667 Gastroesophageal reflux disease without esophagitis (K21.9) Active confirmed Problem 13446821 Nausea and vomiting, unspecified vomiting type (R11.2) Active confirmed Vital Signs Blood pressure diastolic 00 mm Hg 07/07/2024 Height 5 ft 9 in in 07/07/2024 Blood pressure systolic 00 mm Hg 07/07/2024 Weight 197 lbs 07/07/2024 BMI 29.09 kg/m2 07/07/2024 Encounters Encounter Location Date Provider Diagnosis [facility] [place] [facility] [address] [place] [phone] 07/27/2024 Taj Neri Jr Colon cancer screening Z12.11 ; Colon polyps K63.5 ; Intractable vomiting with nausea, unspecified vomiting type R11.2 and Gastro-esophageal reflux disease without esophagitis K21.9 [facility] [address] [place] [phone] 07/07/2024 Taj Neri Jr Nausea and vomiting, unspecified vomiting type R11.2 ; Gastroesophageal reflux disease without esophagitis K21.9 and Colon cancer screening Z12.11 [facility] [address] [place] [phone] 08/04/2024 Taj Neri Jr Assessments Encounter Date [...] Provider Name:Taj marti , 11/09/2024 01:00:00 PM, [address] [place] [address], [phone], Insurance Providers Payer Name Payer Address Payer Phone Subscriber Number Group Number Insured Name Patient Relationship to Insured Coverage Start Date Coverage End Date [facility] [address] [place] [phone] [id number] SANTI HERNANDEZ Self - patient is the insured Medical (General) History Medical History History ICD Code Hypertension and Allergic rhinitis Diabetes mellitus type 2 Coronary artery disease with history of OH and CABG Gout Chronic kidney disease Colonoscopy, 03/09, hyperplastic polyp, t en-year followup Hyperlipidemia JUAN C Surgical History Surgery Date(Month/Year) tonsillectomy and adenoidectomy spinal surgery triple bypass
--- OUTSIDE RECORDS SUMMARY | 2024-10-04 09:34 | XMS_ITS | Clinical Summary ---
Author Organization [facility] Address [address] [place] [place] [address] Phone Care Team Providers Care Rn Ostomy Name Role Phone Heidi Hernandez FLOWER GRADER Primary Care Provider [phone] Allergies Active Allergy Reactions Criticality Noted Date [...] 3 06/30/19 25 Active ergocalciferol 1.25 MG (56607 UT) capsule Take 1 capsule (50,000 Units total) by mouth every 30 (thirty) days 3 capsule 09/30/19 25 026 Active ergocalciferol 1.25 MG (09318 UT) capsule TAKE 1 CAPSULE (50,000 UNITS TOTAL) BY MOUTH EVERY 30 DAYS 3 capsule 05/16/20 24 025 Discontinued(Re order (does not appear on AVS)) Empagliflozin (Jardiance) 10 MG tablet Take 10 mg by mouth 1 (one) time each day in the morning 90 tablet 2 06/30/19 25 025 ergocalciferol 1.25 MG (23955 UT) capsule Take 1 capsule (50,000 Units total) by mouth every 30 (thirty) days 3 capsule 09/16/19 25 025 Discontinued ergocalciferol 1.25 MG (89742 UT) capsule TAKE 1 CAPSULE BY MOUTH [...] Only [facility] [address] [address] Fer Leigh MD 09/15/2024 Refill [facility] [address] [place] [phone] Fer Leigh MD 09/15/2024 Telephone [facility] [address] [place] [phone] Sophia Puentes MA from Last 3 [...] Visit [facility] [address] [place] [phone] Fer Leigh MD [address] [address] Health Maintenance Due Date Last [...] ORDERABLES Final Re sult Performing Organization Address [facility] de Phone Number [place] See order comments [place] [address] * (ABNORMAL) Albumin, urine, random (09/29/2024 7:40 [...] ORDERABLES Final Re sult Performing Organization Address [facility] Co de Phone Number [place] See order comments [place] [address] * (ABNORMAL) Urinalysis with microscopic (09/29/2024 7:40 AM EDT) Color Urine Yellow See orde r comments Appearance Urine Clear See order comments pH Urine 5.5 5.0 - 9.0 See order comments Glucose Urine Negative Negative mg/dL See order comments Blood, Urine Negative Negative See ord er comments Specific [place] Urine 1.025 1.005 - 1.025 See order [...] ORDERABLES Final Re sult Performing Organization Address [facility] de Phone Number [place] See order comments [place] [address] * (ABNORMAL) Creatinine (09/29/2024 7:16 AM EDT) Creatinine Serum 1.52(H) 0.5 - 1.4 mg/dL See order comments eGFR 46 See order comments Comment: Chronic Kidney Disease: ??Estimated GFR < 60 mL/min/1.73m2 Severe Kidney Disease: ??Estimated GFR < 15 mL/min/1.73m2 09/29/2024 7:16 AM EDT 09/29/2024 7:16 AM EDT us Fer Leigh MD LAB BLOOD ORDERABLES Final Re sult Performing Organization Address [facility] de Phone Number [place] See order comments [place] [address] * (ABNORMAL) PTH, Intact (09/29/2024 7:16 AM EDT) Parathyroid Hormone, Intact 103.0(H) 8.7 - 77.1 pg/mL See order comments 09/29/2024 7:16 AM EDT 09/29/2024 7:16 AM EDT Fer Leigh MD LAB [id number] SOLICITED RESULTS Final Result Performing Organization Address [facility] Co de Phone Number [place] See order comments [place] [address] * (ABNORMAL) Vitamin D 25 Hydroxy (09/29/2024 [...] ORDERABLES Final Re sult Performing Organization Address City/[facility]/ZIP Co de Phone Number [place] See order comments [place] [address] * (ABNORMAL) CBC and Differential (09/29/2024 7:16 [...] order comments [place] [address] * (ABNORMAL) BUN (09/29/2024 7:16 AM EDT) BUN 31(H) 9 - 16 mg/dL See order comments 09/29/2024 7:16 AM EDT 09/29/2024 7:16 AM EDT Fer Leigh MD LAB BLOOD ORDERABLES Final Re sult Performing Organization Address [facility] de Phone Number [place] See order comments [place] [address] * Phosphorus (09/29/2024 7:16 AM EDT) Pathologist [facility] Phosphorus, Serum 2.8 2.7 - 4.5 mg/dL See order comments 09/29/2024 7:16 AM EDT 09/29/2024 7:16 AM EDT Fer Leigh MD LAB BLOOD ORDERABLES Final Re sult Performing Organization Address [facility] Phone Number [facility] See order comments [place] [address] * Magnesium (09/29/2024 7:16 AM EDT) Pathologist [facility] Magnesium 1.8 1.6 - 2.6 mg/dL See order comments 09/29/2024 7:16 AM EDT 09/29/2024 7:16 AM EDT Fer Leigh MD LAB BLOOD ORDERABLES Final Re sult Performing Organization Address [facility] de Phone Number [place] See order comments [place] [address] * Calcium (09/29/2024 7:16 AM EDT) Calcium 9.1 8.4 - 10.2 mg/dL See order comments 09/29/2024 7:16 AM EDT 09/29/2024 7:16 AM EDT Fer Leigh MD LAB BLOOD ORDERABLES Final Re sult [place] See order comments [place] [address] * Albumin (09/29/2024 7:16 AM EDT) Albumin 3.8 3.5 - 5.0 g/dL See order comments 09/29/2024 7:16 AM EDT 09/29/2024 7:16 AM EDT Fer Leigh MD LAB BLOOD ORDERABLES Final Re sult Performing Organization Address City/[facility] Co de Phone Number [place] See order comments [place] [address] * (ABNORMAL) Electrolyte panel (09/29/2024 7:16 AM [...] ORDERABLES Final Re sult Performing Organization Address [facility] Co de Phone Number [place] See order comments [place] [address] from Last 3 Months Insurance [facility] Care Teams Rn Ostomy Relationship Specialty Start Date End Date Heidi Hernandez FNP [address] [place] [address] [address] [place], [place] PCP - General 07/09/20
--- OUTSIDE RECORDS SUMMARY | 2024-10-04 09:34 | XMS_ITS ---
Author Organization [facility] Address [address] [place] [address] Care Team Providers Care Agricultural Engineering Technologist Name Role Phone Camilo Hayward D.O. Primary Care Provider Unavail able Taj Neri Jr Unavailable REASON FOR VISIT pathology Encounters Encounter Location Date Provider Diagnosis [facility] [address] [place] [phone] 08/04/2024 Taj Neri Jr Plan Of Treatment Next Appt Details Provider Name:Taj marti Jr, 11/09/2024 01:00:00 PM, [address] [place] [address], [phone], Progress Notes * RHEAKenna SANTIDOB:[birth year] (69 yo M)Acc No.[id number]:08/04/2024 Patient:?SANTI HERNANDEZ :1955???Age:69 Y???Sex:Male Address:[address] [place] [address], [address] * true * Date:? Generated for Printi lissa/Yadi/eTransmitting on:?10/04/2024 09:34 AM EDT
--- OUTSIDE RECORDS SUMMARY | 2024-10-04 09:35 | XMS_ITS | Encounter Summary ---
Author Organization [facility] Address [address] [address] Phone Care Team Providers Care Home Health Care Case Manager Name Role Phone Heidi Hernandez Primary Care Provider [phone] Encounter Details Date Type Department Care Team ([facility] Contact Info) Description 09/15/2024 Telephone [facility] [address] [phone] Sophia Puentes MA [address] [facility] [place] [address] [place] [address] Social History Tobacco Use Types [...] Visit [facility] [address] [place] [address] Fer Leigh MD [address] [phone] documented as of this encounter Visit Diagnoses Not on filedocumented in this encounter Care Teams Home Health Care Case Manager Relationship Specialty Start Date End Date Heidi Hernandez FNP [address] [place] [address] DR [place]ILFR[place]O [place], [place] PCP - General 07/09/20 documented as of this encounter
--- OUTSIDE RECORDS SUMMARY | 2024-10-04 09:35 | XMS_ITS | Encounter Summary ---
Author Organization [facility] Address [address] [address] Phone Care Team Providers Care Drawstring Knotter Name Role Phone Heidi Hernandez Primary Care Provider [phone] Reason for Visit * Reason Comments Med Change Request Encounter Details Date Type Department Care Team ([facility] Contact Info) Description 06/30/2024 Refill [facility] [address] [place] [address] Fer Leigh MD [address] [address] Social History Tobacco Use Types [...] Office Visit [facility] [address] [place] [address] Fer Leigh MD [address] [address] documented as of this encounter Visit Diagnoses Not on filedocumented in this encounter Care Teams Drawstring Knotter Relationship Specialty Start Date End Date Heidi Hernandez FNP [address] [place] PCP - General 07/09/20 documented as of this encounter
--- OUTSIDE RECORDS SUMMARY | 2024-10-04 09:35 | XMS_ITS | Encounter Summary ---
Author Organization [facility] Address [address] [address] Phone Care Team Providers Care Cardiovascular Physician Assistant Name Role Phone Heidi Hernandez Primary Care Provider [phone] Reason for Visit * Reason Comments Med Change Request Encounter Details Date Type Department Care Team ([facility] Contact Info) Description 06/30/2024 Refill [facility] [address] [place] [address] Fer Leigh MD [address] [address] Social History Tobacco Use Types [...] Office Visit [facility] [address] [place] [address] Fer Leigh MD [address] [address] documented as of this encounter Visit Diagnoses Not on filedocumented in this encounter Care Teams Cardiovascular Physician Assistant Relationship Specialty Start Date End Date Heidi Hernandez FNP [address] [place] PCP - General 07/09/20 documented as of this encounter
--- OUTSIDE RECORDS SUMMARY | 2024-10-04 09:35 | XMS_ITS ---
Author Organization [facility] Address [address] [place] [address] Care Team Providers Care French Tutor Name Role Phone Camilo Hayward D.O. Primary Care Provider Unavail able Taj Neri Jr Unavailable [phone] Allergies No Known Allergies REASON FOR VISIT Patient presents today for a colon screening Medications Medication SIG (Take, Route, Frequency, Duration) Notes Start Date End Date Status Turmeric Active metFORMIN HCl 1000 MG Oral for 90 Active Allopurinol 300 MG Oral for 90 Active Vitamin D (Ergocalciferol) 1.25 MG (46346 UT) TAKE 1 CAPSULE (50,000 UNITS TOTAL) [...] Problem Status W/U Status Risk Notes Problem 86095044 Nausea and vomit ing, unspecified vomiting type (R11.2) Active confirmed Problem 622502346 Gastroesophageal reflux disease without esophagitis (K21.9) Active confirmed Problem 067869738 Colon cancer screening (Z12.11) Active confirmed Vital Signs Blood pressure systolic 00 mm Hg 07/07/19 25 Blood pressure diastolic 00 mm Hg 025 Height 5 ft 9 in in 07/07/2024 Weight 197 lbs 07/07/2024 BMI 29.09 kg/m2 07/07/2024 Encounters Encounter Location Date Provider Diagnosis [facility] [address] [place] [address] 07/07/2024 Taj Neri Jr Nausea and vomiting, [...] Provider Name:Taj marti , 11/09/2024 01:00:00 PM, [address] [place] [address] , [place], [place], [id number], Progress Notes * GIOVANNI HERNANDEZDOB:[birth year] (69 yo M)Acc No.[id number]:07/07/2024 Progress Notes Patient:?GIOVANNI HERNANDEZ Provider:?Taj Neri MD :1955???Age:69 Y???Sex:Male Eric e:07/07/2024 Address:[address] [place] [address] Pcp:Camilo Hayward D.O. Subjective: * Chief Complaints: * ???1. Patient presents today for a colon screening. * HPI: ???New symptom(s):? 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 He has [...]
--- OUTSIDE RECORDS SUMMARY | 2024-10-04 09:35 | XMS_ITS | Clinical Summary ---
Author Organization [facility] Address [address] [place] [address] Care Team Providers Care Fingernail Sculptor Name Role Phone Camilo Hayward DO Primary [...] artery disease involving coronary bypass graft of chinik heart without angina pectoris Take 1 tablet [...] disease invo lving coronary bypass graft of chinik heart without angina pectoris 03/07/2019 Encounters Date Type Department Care Team Description 08/11/2024 Telephone Internal Medicine - [place] 2 [facility] 2 [place] [address] Sushma Garcia RN from Last 3 [...] AM EDT Office Visit Internal Medicine - [place] [address] [place] [address] Camilo Hayward DO [address] [place] [address] Health Maintenance Due Date Last Done Comments [...] (07/12/2024) Anatomical Region Laterality Modality Ultrasound Provider [facility] IM US PROCEDURES Final Result * Falls Risk Assessment (03/28/2024) Pathologist [facility] Falls Risk Assessment ABSTRACTED Result [employer] Provider HEALTH MAINTENANCE Final Result * Depression Screening (03/28/2024) Pathologist [facility] Depression Screening ABSTRACTED [facility] Provider HEALTH MAINTENANCE Final Result * Urine Albumin Creatinine Ratio (11/30/2023) Pathologist [facility] Urine Albumin Creatinine Ratio ABSTRACTED Result [employer] Provider HEALTH MAINTENANCE Final Result * Annual BMP Blood Test (09/01/2019) Pathologist [facility] Annual BMP Blood Test ABSTRACTED us Historical Provider HEALTH MAINTENANCE Final Result * Colonoscopy (02/06/2011) Colonoscopy no interpretation , abstracted Anatomical Region Laterality Modality Other Historical Provider HEALTH MAINTENANCE Final Result from Last 3 Months or Most Recently Relevant to Health Maintenance Insurance [employer] [place] [employer] MEDICARE Care Teams Fingernail Sculptor Relationship Specialty Start Date End Date Camilo Hayward DO [address] [place] [address] PCP - General 04/27/23
--- OUTSIDE RECORDS SUMMARY | 2024-10-04 09:35 | XMS_ITS | Encounter Summary ---
Author Organization [facility] Address [address] [address] Phone Care Team Providers Care Production Line Name Role Phone Heidi Hernandez MANUFACTURERS REPRESENTATIVE Primary Care Provider [phone] Encounter Details Date Type Department Care Team ([facility] Contact Info) Description 09/29/2024 Orders Only [facility] [address] [address] Fer Leigh MD [address] [address] Social History Tobacco Use Types [...] Office Visit [facility] [address] [place] [address] Fer Leigh MD [address] [address] documented as of this encounter [...] ORDERABLES Final Re sult Performing Organization Address [facility] de Phone Number [place] See order comments [place] [address] * (ABNORMAL) Albumin, urine, random (09/29/2024 7:40 [...] Leigh MD LAB URINE ORDERABLES Final Re [facility] Performing Organization Address [facility] de Phone Number [place] See order comments [place] [address] * (ABNORMAL) Urinalysis with microscopic (09/29/2024 7:40 AM EDT) Color Urine Yellow See orde r comments Appearance Urine Clear See order comments pH Urine 5.5 5.0 - 9.0 See order comments Glucose Urine Negative Negative mg/dL See order comments Blood, Urine Negative Negative See ord er comments Specific [place] Urine 1.025 1.005 - 1.025 See order [...] ORDERABLES Final Re sult Performing Organization Address [facility] Co de Phone Number [place] See order comments [place] [address] * (ABNORMAL) Vitamin D 25 Hydroxy (09/29/2024 [...] ORDERABLES Final Re daniellet Performing Organization Address [facility] Co de Phone Number [place] See order comments [place] [address] * (ABNORMAL) PTH, Intact (09/29/2024 7:16 AM EDT) Parathyroid Hormone, Intact 103.0(H) 8.7 - 77.1 pg/mL See order comments 09/29/2024 7:16 AM EDT 09/29/2024 7:16 AM EDT us Fer Leigh MD LAB [id number] SOLICITED RESULTS Final Result Performing Organization Address [facility] Co de Phone Number [place] See order comments [place] [address] * Albumin (09/29/2024 7:16 AM EDT) Albumin 3.8 3.5 - 5.0 g/dL See order comments 09/29/2024 7:16 AM EDT 09/29/2024 7:16 AM EDT us Fer Leigh MD LAB BLOOD ORDERABLES Final Re sult Performing Organization Address [facility] Phone Number [place] See order comments [place] [address] * Magnesium (09/29/2024 7:16 AM EDT) Magnesium 1.8 1.6 - 2.6 mg/dL See order comments 09/29/2024 7:16 AM EDT 09/29/2024 7:16 AM EDT us Fer Leigh MD LAB BLOOD ORDERABLES Final Re sult Performing Organization Address [facility] de Phone Number [place] See order comments [place] [address] * Phosphorus (09/29/2024 7:16 AM EDT) Phosphorus, Serum 2.8 2.7 - 4.5 mg/dL See order comments 09/29/2024 7:16 AM EDT 09/29/2024 7:16 AM EDT us Fer Leigh MD LAB BLOOD ORDERABLES Final Re sult Performing Organization Address [facility] de Phone Number [place] See order comments [place] [address] * Calcium (09/29/2024 7:16 AM EDT) Calcium 9.1 8.4 - 10.2 mg/dL See order comments 09/29/2024 7:16 AM EDT 09/29/2024 7:16 AM EDT Fer Leigh MD LAB BLOOD ORDERABLES Final Re sult Performing Organization Address [facility] Co de Phone Number [place] See order comments [place] [address] * (ABNORMAL) Creatinine (09/29/2024 7:16 AM EDT) Creatinine Serum 1.52(H) 0.5 - 1.4 mg/dL See order comments eGFR 46 See order comments Comment: Chronic Kidney Disease: ??Estimated GFR < 60 mL/min/1.73m2 Severe Kidney Disease: ??Estimated GFR < 15 mL/min/1.73m2 09/29/2024 7:16 AM EDT 09/29/2024 7:16 AM EDT us Fer Leigh MD LAB BLOOD ORDERABLES Final Re sult Performing Organization Address [facility] Co de Phone Number [place] See order comments [place] [address] * (ABNORMAL) BUN (09/29/2024 7:16 AM EDT) BUN 31(H) 9 - 16 mg/dL See order comments 09/29/2024 7:16 AM EDT 09/29/2024 7:16 AM EDT us Fer Leigh MD LAB BLOOD ORDERABLES Final Re sult Performing Organization Address [facility] Co de Phone Number [place] See order comments [place] [address] * (ABNORMAL) Electrolyte panel (09/29/2024 7:16 AM [...] order comments [place] [address] * (ABNORMAL) CBC and Differential (09/29/2024 7:16 [...] AM EDT 09/29/2024 7:16 AM EDT us Fre Leigh MD LAB BLOOD ORDERABLES Final Re sult [place] See order comments [place] [address] documented in this encounter Visit Diagnoses Not on filedocumented in this encounter Care Teams Production Line Relationship Specialty Start Date End Date Heidi Hernandez FNP [address] [place] [address] [address] ALEJANDRO DUNCAN PCP - General 07/09/20 documented as of this encounter
--- OUTSIDE RECORDS SUMMARY | 2024-10-04 09:35 | XMS_ITS | Encounter Summary ---
Author Organization [facility] Address [address] [facility] [address] [place] [address] Phone Care Team Providers Care Radar Repairer Name Role Phone Heidi Hernandez Primary Care Provider [phone] Encounter Details Date Type Department Care Team (Late Contact Info) Description 02/17/2024 Office Communication [facility] [address] [facility] [address] [place] [address] Fer Leigh MD [address] [address] Social History Tobacco Use Types [...] Office Visit [facility] [address] [place] [address] Fer Leigh MD [address] [address] documented as of this encounter Visit Diagnoses Not on filedocumented in this encounter Care Teams Radar Repairer Relationship Specialty Start Date End Date Heidi Hernandez FNP [address] [place] [address] DR WILFREDO DUNCAN [place] PCP - General 07/09/20 documented as of this encounter
--- OUTSIDE RECORDS SUMMARY | 2024-10-04 09:35 | XMS_ITS | Clinical Summary ---
Author Organization [facility] Address [address] [place] [address] Care Team Providers Care Laborer Prestressed Concrete Name Role Phone Camilo Hayward MD Primary [...] 3 03/14/2024 Active ergocalciferol (VITAMIN D2) capsule 53124 units Take 1 capsule (50,000 Units total) by mouth every 30 (thirty) days. 0 02/17/2024 Active Active Problems Problem Noted Date Diagnosed Date Hypertensive heart and renal disease with (congestive) heart failure 09/13/2020 Coronary artery disease invo lving coronary bypass graft of cabazon heart without angina pectoris 03/07/2019 Allergic rhinitis Anxiety Depression Hypertension Sleep apnea Immunizations Name Administration Dates Next Due Covid-19 (Anda) Dilution Required 05/20/2021,0 07/13/2020,06/21/2020 Covid-19 (Anda) Ready To Use 04/14/2024 Influenza Quad (Fluad) [...] Group Subscriber ID Effective Dates Phone Address [facility] [id number] 2023-Present [address] [address] O Care Teams Laborer Prestressed Concrete Relationship Specialty Start Date End Date Camilo Hayward MD PCP - General Family Medicine 04/27/23
--- OUTSIDE RECORDS SUMMARY | 2024-10-04 09:35 | XMS_ITS ---
Author Organization [facility] Address [address] [place] [address] Care Team Providers Care Farm Loan Representative Name Role Phone Camilo Hayward D.O. Primary Care Provider Unavail Taj Landon Jr Unavailable [phone] REASON FOR VISIT gerd, nausea, vomiting,screening Problems Problem Type SNOMED Code ICD Code Onset Dates Problem Status W/U Status Risk Notes Problem Gastro-esophagea l reflux disease without esophagitis (443775849) Gastro-esophage al reflux disease without esophagitis (K21.9) Active confirmed Encounters Encounter Location Date Provider Diagnosis [facility] Outpatient [address] [place] [phone] 07/27/2024 Taj Neri Jr Colon cancer screening [...] Provider Name:Taj marti Jr, 11/09/2024 01:00:00 PM, [address] [place] [address], [phone], Progress Notes * SANTI HERNANDEZDOB:[birth year] (69 yo M)Acc No.[id number]:07/27/2024 EGD and COL/MAC Patient:?SANTI HERNANDEZ Provider:?Taj Neri MD :1955???Age:69 Y???Sex:Male Eric e:07/27/2024 Address:[address] [place] [address] Pcp:Camilo Hyaward D.O. Subjective: * Chief Complaints: * ???1. Gerd, nausea, vomiting ,screening. * Medical History:? Objective: * Vitals:? Assessment: * Assessment: 1.?Colon cancer screening - Z12.11 (Primary)???2.?Colon polyps - K63.5???3.?Intractable vomiting with nausea, unspecified vomiting type - R11.2???4.?Gastro-esophageal reflux disease without esophagitis - K21.9??? Plan: * Treatment: * Procedure Codes:?05238 LESIO N REMOVAL COLONOSCOPY, 44844 COLONOSCOPY AND BIOPSY, Modifiers: 61 , 0529F INTRVL 3+YRS PTS CLNSCP DOCD, [address] UPPER GI ENDOSCOPY, BIOPSY * * The named appointment provid er may or may not be the originator of this progress note, and it is not deemed complete until electronically signed by the appointment provider. Sign off status: Pending * Provider:?Taj Neri MD Date:?0 07/27/2024 Generated for Josh alcaraz/Yadi/eTransmitting on:?10/04/2024 09:34 AM EDT
== END 2024-10-04 09:43 | disposition home or self-care (01) ==
LOC: HO.HCS 08:56
PROVIDERS: PCP Family Medicine; Visit Provider Internal Medicine
DX: I25.10 Atherosclerotic heart disease of native coronary artery without angina pectoris (principal); I25.5 Ischemic cardiomyopathy; I10 Essential (primary) hypertension; E78.5 Hyperlipidemia, unspecified; I45.10 Unspecified right bundle-branch block
CPT/HCPCS: 93010; 99214; G2211

== ENCOUNTER → 2024-10-04 08:56 | Outpatient (BNVA) | payer MEDICARE, SELFPAY | PROVIDERS: PCP Family Medicine; Visit Provider Internal Medicine | DX: I25.10 Atherosclerotic heart disease of native coronary artery without angina pectoris (principal); I25.5 Ischemic cardiomyopathy; I10 Essential (primary) hypertension; E78.5 Hyperlipidemia, unspecified; I45.10 Unspecified right bundle-branch block | CPT/HCPCS: 93005; 99212 ==

== ENCOUNTER 2024-11-09 11:54 | Day surgery (SDC) | payer MEDICARE, SELFPAY ==
--- OUTSIDE RECORDS SUMMARY | 2024-10-03 16:36 | XMS_ITS | Patient Health Record ---
Author Organization [facility] Address [address] [place] [address] Care Team Providers Care Information Technology Manager Name Role Phone Camilo Hayward D.O. Primary Care Provider Unavail able Taj Neri Jr Unavailable Allergies No Known Allergies Results Component Value Reference Range Notes Glucose, Whole Blood Reviewed date:07/27/2024 04:44:26 PM Interpretation: Performing Lab:[facility], [address] [place] [phone] Notes/Report: Glucose, Whole Blood 95 60-115 mg/dL METER # : [id number] Pathology Reviewed date:08/04/2024 01:22:16 PM Interpretation: Performing Lab:[facility], [address] [place] [phone] Notes/Report: ----- Name: Alex Hernandez Age/Sex: 69/M : 1955 Unit#: [id number] Attend Dr: aTj Neri MD Re07/27/24 Status : [facility] Location: [facility] Disch: ----- SPEC : [id number] RECD: 07/27/24 STATUS: JALEESA VO NUM: [id number] RAY: 07/27/24-[address] [facility] [address]: Taj Neri MD ENTERED: 07/27/24 [...] Alex Hernandez Age/Sex: 69/M : 1955 Unit#: [id number] Attend Dr: Taj Neri MD Re07/27/24 Status : [facility] Location: [facility] Disch: ----- SPEC : [id number] RECD: 07/27/245 STATUS: JALEESA VO NUM: [id number] RAY: 07/27/24-[address] [facility] [address]: Taj Neri MD ENTERED: 07/27/24-14 [...] A1. Copies To: Camilo Hayward DO [address] [address] Taj Neri MD [facility] [address] [place] [address] [address] [place] [address] CONTINUED ON NEXT PAGE ----- Name: ShantellonaAlex Age/Sex: 69/M : 1955 Unit#: [id number] Attend Dr: Taj Neri MD Re07/27/24 Status : [facility] Location: [facility] Disch: ----- SPEC : [id number] RECD: 07/27/241123 STATUS: JALEESA VO NUM: [id number] RAY: 07/27/24-[address]: Taj Neri MD ENTERED: 07/27/24-14 39 SP TYPE: Surgical OTHR DR: Camilo Hayward DO ORDERED: HE Stain/15 , Gross Micro L4/5, IHC, H. pylori ----- Signed (signature on file) Yojana Bowie 07/28/24 1624 ----- END OF REPORT Glucose, Whole Blood Reviewed date:07/27/2024 04:44:21 PM Interpretation: Performing Lab:[facility], [address] [place] [phone] Notes/Report: Glucose, Whole Blood 88 60-115 mg/dL METER # : [id number] Reason For Referral No Information Medications Medication SIG (Take, Route, Frequency, Duration) Notes Start Date End Date Status Turmeric Active Aspirin 81 Active metFORMIN HCl 1000 MG Oral for 90 Active Allopurinol 300 MG Oral for 90 Active Vitamin D (Ergocalciferol) 1.25 MG (74987 UT) TAKE 1 CAPSULE (50,000 UNITS TOTAL) [...] Problem Status W/U Status Risk Notes Problem 403067441 Colon cancer screening (Z12.11) Active confirmed Problem Gastro-esophage al reflux disease without esophagitis (237539736) Gastro-esophageal reflux disease without esophagitis (K21.9) Active confirmed Problem 306608318 Gastroesophageal reflux disease without esophagitis (K21.9) Active confirmed Problem 04998346 Nausea and vomiting, unspecified vomiting type (R11.2) Active confirmed Vital Signs Blood pressure diastolic 00 mm Hg 07/07/2024 Height 5 ft 9 in in 07/07/2024 Blood pressure systolic 00 mm Hg 07/07/2024 Weight 197 lbs 07/07/2024 BMI 29.09 kg/m2 07/07/2024 Encounters Encounter Location Date Provider Diagnosis [facility] Outpatient [address] [place] [phone] 07/27/2024 Taj Neri Jr Colon cancer screening Z12.11 ; Colon polyps K63.5 ; Intractable vomiting with nausea, unspecified vomiting type R11.2 and Gastro-esophageal reflux disease without esophagitis K21.9 [facility] [address] [place] [phone] 07/07/2024 Taj Neri Jr Nausea and vomiting, unspecified vomiting type R11.2 ; Gastroesophageal reflux disease without esophagitis K21.9 and Colon cancer screening Z12.11 [facility] [address] [place] [phone] 08/04/2024 Taj Neri Jr Assessments Encounter Date [...] Provider Name:Taj marti , 11/09/2024 01:00:00 PM, [address] [place] [address], [phone], Insurance Providers Payer Name Payer Address Payer Phone Subscriber Number Group Number Insured Name Patient Relationship to Insured Coverage Start Date Coverage End Date [facility] [address] [place] [phone] [id number] SANTI HERNANDEZ Self - patient is the insured Medical (General) History Medical History History ICD Code Hypertension and Allergic rhinitis Diabetes mellitus type 2 Coronary artery disease with history of OK and CABG Gout Chronic kidney disease Colonoscopy, 03/09, hyperplastic polyp, t en-year followup Hyperlipidemia JUAN C Surgical History Surgery Date(Month/Year) tonsillectomy and adenoidectomy spinal surgery triple bypass
--- OUTSIDE RECORDS SUMMARY | 2024-10-03 16:36 | XMS_ITS ---
Author Organization [facility] Address [address] [place] [phone] Care Team Providers Care Uniformer Name Role Phone Camilo Hayward D.O. Primary Care Provider Unavail able Taj Neri Jr Unavailable REASON FOR VISIT pathology Encounters Encounter Location Date Provider Diagnosis [facility] [address] [place] [phone] 08/04/2024 Taj Neri Jr Plan Of Treatment Next Appt Details Provider Name:Taj marti Jr, 11/09/2024 01:00:00 PM, [address] [place] [address], [phone], Progress Notes * DAVID SANTIDOB:[birth year] (69 yo M)Acc No.[id number]:08/04/2024 Patient:?SANTI HERNANDEZ :1955???Age:69 Y???Sex:Male Address:[address] [place] [address], [address] * true * Date:? Generated for Printi lissa/Yadi/eTransmitting on:?10/03/2024 04:36 PM EDT
--- OUTSIDE RECORDS SUMMARY | 2024-10-03 16:36 | XMS_ITS | Clinical Summary ---
Author Organization [facility] Address [address] [place] [address] Phone Care Team Providers Care Systems Support Officer Name Role Phone Heidi Hernandez STRENGTH AND CONDITIONING COACH Primary Care Provider [phone] Allergies Active Allergy Reactions Criticality Noted Date [...] 3 06/30/19 25 Active ergocalciferol 1.25 MG (11222 UT) capsule Take 1 capsule (50,000 Units total) by mouth every 30 (thirty) days 3 capsule 09/30/19 25 026 Active ergocalciferol 1.25 MG (13595 UT) capsule TAKE 1 CAPSULE (50,000 UNITS TOTAL) BY MOUTH EVERY 30 DAYS 3 capsule 05/16/20 24 025 Discontinued(Re order (does not appear on AVS)) Empagliflozin (Jardiance) 10 MG tablet Take 10 mg by mouth 1 (one) time each day in the morning 90 tablet 2 06/30/19 25 025 ergocalciferol 1.25 MG (35658 UT) capsule Take 1 capsule (50,000 Units total) by mouth every 30 (thirty) days 3 capsule 09/16/19 25 025 Discontinued ergocalciferol 1.25 MG (73960 UT) capsule TAKE 1 CAPSULE BY MOUTH EVERY 30 DAYS 3 capsule 09/17/19 25 025 Discontinued(Re order (does not appear on AVS)) Active Problems Problem Noted Date Diagnosed Date [...] Encounters Date Type Department Care Team Description 09/29/2024 Orders Only [facility] [address] [address] Fer Leigh MD 09/15/2024 Refill [facility] [address] [place] [phone] Fer Leigh MD 09/15/2024 Telephone [facility] [address] [place] [phone] Sophia Puentes MA from Last 3 [...] Visit [facility] [address] [place] [phone] Fer Leigh MD [address] [address] Health Maintenance Due Date Last [...] Procedure Name Priority Date/Time Associated Diagnosis Comments PROTEIN / CREATININE RATIO, URINE Routine 09/29/2024 7:40 AM EDT ALBUMIN, URINE, RANDOM Routine 09/29/2024 7:40 AM EDT URINALYSIS WITH MICROSCOPIC Routine 09/29/2024 7:40 AM EDT VITAMIN D 25 HYDROXY Routine 09/29/2024 7:16 AM EDT PTH, INTACT (HC) Routine 09/29/2024 7:16 AM EDT ALBUMIN Routine 09/29/2024 7:16 AM EDT MAGNESIUM Routine 09/29/2024 7:16 AM EDT PHOSPHATE ( PHOSPHORUS) Routine 09/29/2024 7:16 AM EDT CALCIUM Routine 09/29/2024 7:16 AM EDT CREATININE, BLOOD Routine 09/29/2024 7:1 6 AM EDT BUN Routine 09/29/2024 7:16 AM EDT ELECTROLYTE PANEL Routine 09/29/2024 7:1 6 AM EDT CBC AND DIFFERENTIAL Routine 09/29/2024 7:16 AM EDT from Last 3 Months Results * (ABNORMAL) Protein, Total, Random Urine w/Creatinine (Protein/Creat Ratio) (09/29/2024 7:40 AM EDT) Protein Urine Random 42(H) <12 mg/dL See order comments Protein/Creatin ine Ratio, Urine 0.19 <0.2 See order comments Comment: The spot urine protein:creatinine ratio may increase to 0.3 during normal . 09/29/2024 7:40 AM EDT 09/29/2024 7:40 AM EDT Fer Leigh MD LAB URINE ORDERABLES Final Re sult Performing Organization Address [facility] de Phone Number [place] See order comments [place] [address] * (ABNORMAL) Albumin, urine, random (09/29/2024 7:40 AM EDT) Creatinine, Urine 223.95 mg/dL Se e order comments Urine Microalbumin 185.0 mg/L See order comments Microalbumin/Crea tinine Ratio 82.6(H) <30 ug/mg cr See order comments Comment: ?Albumin/Creatinine Ratio Reference Ranges: ?Normal: < 30 ug/mg creatinine ?Microalbuminuria: ??30 - 300 ug/mg creatinine Clinical Albuminuria: ??> 300 ug/mg creatinine 09/29/2024 7:40 AM EDT 09/29/2024 7:40 AM EDT Fer Leigh MD LAB URINE ORDERABLES Final Re sult Performing Organization Address [facility] Co de Phone Number [place] See order comments [place] [address] * (ABNORMAL) Urinalysis with microscopic (09/29/2024 7:40 AM EDT) Color Urine Yellow See orde r comments Appearance Urine Clear See order comments pH Urine 5.5 5.0 - 9.0 See order comments Glucose Urine Negative Negative mg/dL See order comments Blood, Urine Negative Negative See ord er comments Specific Thornton Urine 1.025 1.005 - 1.025 See order comments Protein Urine 30 (1+)(A) Neg-Trace mg/dL See order comments Ketones, Urine Trace Negative mg/dL See order comments Nitrite, Urine Negative Negative See o rder comments Leukocyte Esterase Urine Negative Negative See order comments RBC, Urine 0-2 0 - 2 /HPF See orde r comments WBC 0-5 0 - 5 /HPF See order comments Squamous Epithelial, Urine 0-2 0 - 2 /HPF See order comments Bacteria, Urine None Seen None Seen See order comments Hyaline Casts, Urine 3-5 0 - 2 /LPF See order comments 09/29/2024 7:40 AM EDT 09/29/2024 7:40 AM EDT Fer Leigh MD LAB URINE ORDERABLES Final Re sult Performing Organization Address [facility] de Phone Number [place] See order comments [place] [address] * (ABNORMAL) Creatinine (09/29/2024 7:16 AM EDT) Creatinine Serum 1.52(H) 0.5 - 1.4 mg/dL See order comments eGFR 46 See order comments Comment: Chronic Kidney Disease: ??Estimated GFR < 60 mL/min/1.73m2 Severe Kidney Disease: ??Estimated GFR < 15 mL/min/1.73m2 09/29/2024 7:16 AM EDT 09/29/2024 7:16 AM EDT us Fer Leigh MD LAB BLOOD ORDERABLES Final Re sult Performing Organization Address [facility] de Phone Number [place] See order comments [place] [address] * (ABNORMAL) PTH, Intact (09/29/2024 7:16 AM EDT) Parathyroid Hormone, Intact 103.0(H) 8.7 - 77.1 pg/mL See order comments 09/29/2024 7:16 AM EDT 09/29/2024 7:16 AM EDT Fer Leigh MD LAB [id number] SOLICITED RESULTS Final Result Performing Organization Address [facility] Co de Phone Number [place] See order comments [place] [address] * (ABNORMAL) Vitamin D 25 Hydroxy (09/29/2024 7:16 AM EDT) Vitamin D, 25-Hydroxy 25.4(L) >30 ng/mL See order comments Comment: Health Based Reference Values* < 20 ??ng/mL ??Deficient 20-30 ng/mL ??Insufficient > 30 ??ng/mL ??Sufficient *Harsha ROGERS. N Engl J Med. 2007;357:266-280 There is no well-established upper level of normal vitamin D levels. Some laboratories use 50 ng/mL as an upper limit of normal. However, toxicity is patient-dependent and may occur at any level. Careful correlation with the patient's presentation is necessary and, if there is concern for vitamin D toxicity, treatment should be considered irrespective of the serum level. Care must be taken in interpreting Vitamin D results from different laboratories and methodologies. ??Published data demonstrated that results from patients undergoing hemodialysis may show a negative bias when tested with various automated 25-OH vitamin D assays when compared to LC-MS/MS. When testing samples from patients whose predominant form of Vitamin D is Vitamin D2, such as patients receiving Vitamin D2 supplementation, results that are subtherapeutic should be confirmed with another method such as LC-MS/MS. 09/29/2024 7:16 AM EDT 09/29/2024 7:16 AM EDT Fer Leigh MD LAB BLOOD ORDERABLES Final Re sult Performing Organization Address City/[facility]/ZIP Co de Phone Number [place] See order comments [place] [address] * (ABNORMAL) CBC and Differential (09/29/2024 7:16 AM EDT) WBC 12.5(H) 4.8 - 10.8 X10*3/uL See order comments RBC 4.81 4.60 - 5.80 X10*6/uL See order comments Hgb 14.4 14.0 - 18.0 g/dl See order comments Hematocrit 41.8(L) 42.0 - 52.0 % See order comments MCV 86.9 80.0 - 98.0 fL See order comments MCH 29.9 27.0 - 33.0 pg See order comments MCHC 34.4 31.0 - 36.0 g/dl See order comments RDW 14.3 11.0 - 16.0 % See order comments Platelets 188 160 - 400 X10*3/uL See order comments MPV 11.8 9.4 - 12.4 fL See order comments Neutrophils % Auto 68.1 45 - 73 % See order comments Immature Granulocytes 1.8(H) 0.0 - 0.4 % See order comments Lymphocytes Relative 16.9(L) 20 - 40 % See order comments Monocytes 11.1(H) 2 - 11 % See order comments Eosinophils Relative 1.6 0 - 4 % See order comments Basophils Relative 0.5 0 - 2 % See order comments nRBC Count 0.0 0.0 - 0.2 /100WBC See order comments Neutrophils Absolute 8.5(H) 2.0 - 8.3 x10*3/uL See order comments Immature Grans (Absolute) 0.22(H) 0.00 - 0.03 X10*3/uL See order comments Lymphocytes Absolute 2.1 1.2 - 4.9 X10*3/uL See order comments Monocytes Absolute 1.4(H) 0.1 - 1.2 X10*3/uL See order comments Eosinophils Absolute 0.2 0.0 - 0.4 X10*3/uL See order comments Basophils Absolute 0.1 0.0 - 0.2 X10*3/uL See order comments NRBC Absolute 0.000 0.0 - 0.012 X10*3/uL See order comments 09/29/2024 7:16 AM EDT 09/29/2024 7:16 AM EDT us Fer Leigh MD LAB BLOOD ORDERABLES Final Re sult [place] See order comments [place] [address] * (ABNORMAL) BUN (09/29/2024 7:16 AM EDT) BUN 31(H) 9 - 16 mg/dL See order comments 09/29/2024 7:16 AM EDT 09/29/2024 7:16 AM EDT Fer Leigh MD LAB BLOOD ORDERABLES Final Re sult Performing Organization Address [facility] de Phone Number [place] See order comments [place] [address] * Phosphorus (09/29/2024 7:16 AM EDT) Pathologist [facility] Phosphorus, Serum 2.8 2.7 - 4.5 mg/dL See order comments 09/29/2024 7:16 AM EDT 09/29/2024 7:16 AM EDT Fer Leigh MD LAB BLOOD ORDERABLES Final Re sult Performing Organization Address [facility] Phone Number [facility] See order comments [place] [address] * Magnesium (09/29/2024 7:16 AM EDT) Pathologist [facility] Magnesium 1.8 1.6 - 2.6 mg/dL See order comments 09/29/2024 7:16 AM EDT 09/29/2024 7:16 AM EDT Fer Leigh MD LAB BLOOD ORDERABLES Final Re sult Performing Organization Address [facility] de Phone Number [place] See order comments [place] [address] * Calcium (09/29/2024 7:16 AM EDT) Calcium 9.1 8.4 - 10.2 mg/dL See order comments 09/29/2024 7:16 AM EDT 09/29/2024 7:16 AM EDT Fer Leigh MD LAB BLOOD ORDERABLES Final Re sult [place] See order comments [place] [address] * Albumin (09/29/2024 7:16 AM EDT) Albumin 3.8 3.5 - 5.0 g/dL See order comments 09/29/2024 7:16 AM EDT 09/29/2024 7:16 AM EDT Fer Leigh MD LAB BLOOD ORDERABLES Final Re sult Performing Organization Address City/[facility] Co de Phone Number [place] See order comments [place] [address] * (ABNORMAL) Electrolyte panel (09/29/2024 7:16 AM EDT) Sodium 140 135 - 145 mmol/L See order comments Potassium 4.0 3.3 - 5.1 mmol/L See order comments Chloride 109(H) 96 - 108 mmol/L See order comments Bicarbonate (CO2) 21(L) 22 - 29 mmol/L See order comments Anion Gap 14 12 - 20 See order comments 09/29/2024 7:16 AM EDT 09/29/2024 7:16 AM EDT Fer Leigh MD LAB BLOOD ORDERABLES Final Re sult Performing Organization Address [facility] Co de Phone Number [place] See order comments [place] [address] from Last 3 Months Insurance [facility] Care Teams Systems Support Officer Relationship Specialty Start Date End Date Heidi Hernandez FNP [address] [place] [address] [address] [place], [place] PCP - General 07/09/20
--- OUTSIDE RECORDS SUMMARY | 2024-10-03 16:37 | XMS_ITS | Clinical Summary ---
Author Organization [facility] Address [address] [place] [address] Care Team Providers Care Linen Folder Name Role Phone Camilo Hayward DO Primary [...] artery disease involving coronary bypass graft of [place] heart without angina pectoris Take 1 tablet [...] week. 4 09/13/19 25 Discontinu ed(Reorder ) Active Problems Problem Noted Date Diagnosed Date Allergic rhinitis 05/16/2024 Anxiety 05/16/2024 Depression 05/16/2024 Hypertension 05/16/2024 Sleep apnea 05/16/2024 Hypertensive heart and renal disease with (congestive) heart failure 09/13/2020 Coronary artery disease invo lving coronary bypass graft of [place] heart without angina pectoris 03/07/2019 Encounters Date Type Department Care Team Description 08/11/2024 Telephone Internal Medicine - [place] [facility] [place] [address] Sushma Garcia RN from Last 3 Months Immunizations Name Administration Dates Next Due Influenza Quadravalent, 0.5m l (Fluad) 65yo and older 04/22/2023 Influenza Quadravalent, 0.5m l (Fluzone High-dose) 65yo and older 04/02/2021 Influenza trivalent, 0.5mL ( Fluzone High-dose) 65yo and older 04/14/2024 Pfizer SARS-CoV-2 COVID-19, mRNA, LNP-S, preservative free 05/20/2021,07/13/2020,06/21/2020 [...] AM EDT Office Visit Internal Medicine - [place] [address] [place] [address] Camilo Hayward DO [address] [place] [address] Health Maintenance Due Date Last Done Comments [...] age to complete this topic Meningococcal B Vaccine Aged Out No l onger eligible based on patient's age to complete [...] (07/12/2024) Anatomical Region Laterality Modality Ultrasound Provider [place] [facility] IM US PROCEDURES Final Result * Falls Risk Assessment (03/28/2024) Pathologist [facility] Falls Risk Assessment ABSTRACTED Result [facility] Provider HEALTH MAINTENANCE Final Result * Depression Screening (03/28/2024) Pathologist [facility] Depression Screening ABSTRACTED [facility] Provider HEALTH MAINTENANCE Final Result * Urine Albumin Creatinine Ratio (11/30/2023) Pathologist [facility] Urine Albumin Creatinine Ratio ABSTRACTED Result [facility] Provider HEALTH MAINTENANCE Final Result * Annual BMP Blood Test (09/01/2019) Pathologist [facility] Annual BMP Blood Test ABSTRACTED us Historical Provider HEALTH MAINTENANCE Final Result * Colonoscopy (02/06/2011) Colonoscopy no interpretation , abstracted Anatomical Region Laterality Modality Other Historical Provider HEALTH MAINTENANCE Final Result from Last 3 Months or Most Recently Relevant to Health Maintenance Insurance [employer] [place] MEDICARE ADVANTAGE MEDICARE Care Teams Linen Folder Relationship Specialty Start Date End Date Camilo Hayward DO [address] [address] PCP - General 04/27/23
--- OUTSIDE RECORDS SUMMARY | 2024-10-03 16:37 | XMS_ITS | Encounter Summary ---
Author Organization [facility] Address [address] [facility] [facility] [address] [place] [address] Phone Care Team Providers Care It Technician Name Role Phone Heidi Hernandez Primary Care Provider [phone] Encounter Details Date Type Department Care Team (Late Contact Info) Description 02/17/2024 Office Communication [facility] [address] [facility] [address] [place] [address] Fer Leigh MD [address] [address] Social History Tobacco Use Types [...] Office Visit [facility] [address] [place] [address] Fer Leigh MD [address] [address] documented as of this encounter Visit Diagnoses Not on filedocumented in this encounter Care Teams It Technician Relationship Specialty Start Date End Date Heidi Hernandez FNP [address] [place] [address] DR WILFREDO DUNCAN [place] PCP - General 07/09/20 documented as of this encounter
--- OUTSIDE RECORDS SUMMARY | 2024-10-03 16:37 | XMS_ITS | Encounter Summary ---
Author Organization [facility] Address [address] [address] Phone Care Team Providers Care Dieing Out Machine Operator Name Role Phone Heidi Hernandez Primary Care Provider [phone] Reason for Visit * Reason Comments Med Change Request Encounter Details Date Type Department Care Team ([facility] Contact Info) Description 06/30/2024 Refill [facility] [address] [place] [address] Fer Leigh MD [address] [address] Social History Tobacco Use Types [...] Office Visit [facility] [address] [place] [address] Fer Leigh MD [address] [address] documented as of this encounter Visit Diagnoses Not on filedocumented in this encounter Care Teams Dieing Out Machine Operator Relationship Specialty Start Date End Date Heidi Hernandez FNP [address] [place] PCP - General 07/09/20 documented as of this encounter
--- OUTSIDE RECORDS SUMMARY | 2024-10-03 16:37 | XMS_ITS | Encounter Summary ---
Author Organization [facility] Address [address] [address] Phone Care Team Providers Care Quantitative Research Analyst Name Role Phone Heidi Hernandez Primary Care Provider [phone] Reason for Visit * Reason Comments Med Change Request Encounter Details Date Type Department Care Team ([facility] Contact Info) Description 06/30/2024 Refill [facility] [address] [place] [address] Fer Leigh MD [address] [address] Social History Tobacco Use Types [...] Office Visit [facility] [address] [place] [address] Fer Leigh MD [address] [address] documented as of this encounter Visit Diagnoses Not on filedocumented in this encounter Care Teams Quantitative Research Analyst Relationship Specialty Start Date End Date Heidi Hernandez FNP [address] [place] PCP - General 07/09/20 documented as of this encounter
--- OUTSIDE RECORDS SUMMARY | 2024-10-03 16:37 | XMS_ITS | Encounter Summary ---
Author Organization [facility] Address [address] [address] Phone Care Team Providers Care Furnace Door Tender Name Role Phone Heidi Hernandez SCIENTIFIC GLASS BLOWER Primary Care Provider [phone] Encounter Details Date Type Department Care Team ([facility] Contact Info) Description 09/29/2024 Orders Only [facility] [address] [address] Fer Leigh MD [address] [address] Social History Tobacco Use Types [...] Office Visit [facility] [address] [place] [address] Fer Leigh MD [address] [address] documented as of this encounter Procedures Procedure Name Priority Date/Time Associated Diagnosis Comments PROTEIN / CREATININE RATIO, URINE Routine 09/29/2024 7:40 AM EDT ALBUMIN, URINE, RANDOM Routine 09/29/2024 7:40 AM EDT URINALYSIS WITH MICROSCOPIC Routine 09/29/2024 7:40 AM EDT CREATININE, BLOOD Routine 09/29/2024 7:1 6 AM EDT PTH, INTACT (HC) Routine 09/29/2024 7:16 AM EDT VITAMIN D 25 HYDROXY Routine 09/29/2024 7:16 AM EDT CBC AND DIFFERENTIAL Routine 09/29/2024 7:16 AM EDT BUN Routine 09/29/2024 7:16 AM EDT PHOSPHATE ( PHOSPHORUS) Routine 09/29/2024 7:16 AM EDT MAGNESIUM Routine 09/29/2024 7:16 AM EDT CALCIUM Routine 09/29/2024 7:16 AM EDT ALBUMIN Routine 09/29/2024 7:16 AM EDT ELECTROLYTE PANEL Routine 09/29/2024 7:1 6 AM EDT documented in this encounter Results * (ABNORMAL) Protein, Total, Random Urine w/Creatinine (Protein/Creat Ratio) (09/29/2024 7:40 AM EDT) Protein Urine Random 42(H) <12 mg/dL See order comments Protein/Creatin ine Ratio, Urine 0.19 <0.2 See order comments Comment: The spot urine protein:creatinine ratio may increase to 0.3 during normal . 09/29/2024 7:40 AM EDT 09/29/2024 7:40 AM EDT us Fer Leigh MD LAB URINE ORDERABLES Final Re sult Performing Organization Address [facility] de Phone Number [place] See order comments [place] [address] * (ABNORMAL) Albumin, urine, random (09/29/2024 7:40 [...] Leigh MD LAB URINE ORDERABLES Final Re [facility] Performing Organization Address [facility] de Phone Number [place] See order comments [place] [address] * (ABNORMAL) Urinalysis with microscopic (09/29/2024 7:40 AM EDT) Color Urine Yellow See orde r comments Appearance Urine Clear See order comments pH Urine 5.5 5.0 - 9.0 See order comments Glucose Urine Negative Negative mg/dL See order comments Blood, Urine Negative Negative See ord er comments Specific [place] Urine 1.025 1.005 - 1.025 See order [...] ORDERABLES Final Re sult Performing Organization Address [facility] Co de Phone Number [place] See order comments [place] [address] * (ABNORMAL) Vitamin D 25 Hydroxy (09/29/2024 [...] Leigh MD LAB BLOOD ORDERABLES Final Re daniellet Performing Organization Address [facility] Co de Phone Number [place] See order comments [place] [address] * (ABNORMAL) PTH, Intact (09/29/2024 7:16 AM EDT) Parathyroid Hormone, Intact 103.0(H) 8.7 - 77.1 pg/mL See order comments 09/29/2024 7:16 AM EDT 09/29/2024 7:16 AM EDT us Fer Leigh MD LAB [id number] SOLICITED RESULTS Final Result Performing Organization Address [facility] Co de Phone Number [place] See order comments [place] [address] * Albumin (09/29/2024 7:16 AM EDT) Albumin 3.8 3.5 - 5.0 g/dL See order comments 09/29/2024 7:16 AM EDT 09/29/2024 7:16 AM EDT us Fer Leigh MD LAB BLOOD ORDERABLES Final Re sult Performing Organization Address [facility] Phone Number [place] See order comments [place] [address] * Magnesium (09/29/2024 7:16 AM EDT) Magnesium 1.8 1.6 - 2.6 mg/dL See order comments 09/29/2024 7:16 AM EDT 09/29/2024 7:16 AM EDT us Fer Leigh MD LAB BLOOD ORDERABLES Final Re sult Performing Organization Address [facility] de Phone Number [place] See order comments [place] [address] * Phosphorus (09/29/2024 7:16 AM EDT) Phosphorus, Serum 2.8 2.7 - 4.5 mg/dL See order comments 09/29/2024 7:16 AM EDT 09/29/2024 7:16 AM EDT us Fer Leigh MD LAB BLOOD ORDERABLES Final Re sult Performing Organization Address [facility] de Phone Number [place] See order comments [place] [address] * Calcium (09/29/2024 7:16 AM EDT) Calcium 9.1 8.4 - 10.2 mg/dL See order comments 09/29/2024 7:16 AM EDT 09/29/2024 7:16 AM EDT Fer Leigh MD LAB BLOOD ORDERABLES Final Re sult Performing Organization Address [facility] Co de Phone Number [place] See order comments [place] [address] * (ABNORMAL) Creatinine (09/29/2024 7:16 AM EDT) Creatinine Serum 1.52(H) 0.5 - 1.4 mg/dL See order comments eGFR 46 See order comments Comment: Chronic Kidney Disease: ??Estimated GFR < 60 mL/min/1.73m2 Severe Kidney Disease: ??Estimated GFR < 15 mL/min/1.73m2 09/29/2024 7:16 AM EDT 09/29/2024 7:16 AM EDT us Fer Leigh MD LAB BLOOD ORDERABLES Final Re sult Performing Organization Address [facility] Co de Phone Number [place] See order comments [place] [address] * (ABNORMAL) BUN (09/29/2024 7:16 AM EDT) BUN 31(H) 9 - 16 mg/dL See order comments 09/29/2024 7:16 AM EDT 09/29/2024 7:16 AM EDT us Fer Leigh MD LAB BLOOD ORDERABLES Final Re sult Performing Organization Address [facility] Co de Phone Number [place] See order comments [place] [address] * (ABNORMAL) Electrolyte panel (09/29/2024 7:16 AM [...] MD LAB BLOOD ORDERABLES Final Re sult [place] See order comments [place] [address] * (ABNORMAL) CBC and Differential (09/29/2024 7:16 [...] order comments [place] [address] documented in this encounter Visit Diagnoses Not on filedocumented in this encounter Care Teams Furnace Door Tender Relationship Specialty Start Date End Date Heidi Hernandez FNP [address] [place] [address] DR [address] ALEJANDRO DUNCAN PCP - General 07/09/20 documented as of this encounter
--- OUTSIDE RECORDS SUMMARY | 2024-10-03 16:37 | XMS_ITS | Clinical Summary ---
Author Organization [facility] Address [address] [place] [address] Care Team Providers Care Line Patrolman Name Role Phone Camilo Hayward MD Primary [...] 3 03/14/2024 Active ergocalciferol (VITAMIN D2) capsule 15161 units Take 1 capsule (50,000 Units total) by mouth every 30 (thirty) days. 0 02/17/2024 Active Active Problems Problem Noted Date Diagnosed Date Hypertensive heart and renal disease with (congestive) heart failure 09/13/2020 Coronary artery disease invo lving coronary bypass graft of [place] heart without angina pectoris 03/07/2019 Allergic rhinitis Anxiety Depression Hypertension Sleep apnea Immunizations Name Administration Dates Next Due Covid-19 (Shiny Ads) Dilution Required 05/20/2021,0 07/13/2020,06/21/2020 Covid-19 (Shiny Ads) Ready To Use 04/14/2024 Influenza Quad (Fluad) [...] Group Subscriber ID Effective Dates Phone Address [facility] [id number] 2023-Present [address] [address] O Care Teams Line Patrolman Relationship Specialty Start Date End Date Camilo Hayward MD PCP - General Family Medicine 04/27/23
--- OUTSIDE RECORDS SUMMARY | 2024-10-03 16:37 | XMS_ITS ---
Author Organization [facility] Address [address] [place] [address] Care Team Providers Care Meat Cutting Block Repairer Name Role Phone Camiol Hayward D.O. Primary Care Provider Unavail able Taj Neri Jr Unavailable Allergies No Known Allergies REASON FOR VISIT Patient presents today for a colon screening Medications Medication SIG (Take, Route, Frequency, Duration) Notes Start Date End Date Status Turmeric Active metFORMIN HCl 1000 MG Oral for 90 Active Allopurinol 300 MG Oral for 90 Active Vitamin D (Ergocalciferol) 1.25 MG (13586 UT) TAKE 1 CAPSULE (50,000 UNITS TOTAL) [...] Problem Status W/U Status Risk Notes Problem 42018987 Nausea and vomit ing, unspecified vomiting type (R11.2) Active confirmed Problem 596724059 Gastroesophageal reflux disease without esophagitis (K21.9) Active confirmed Problem 840902909 Colon cancer screening (Z12.11) Active confirmed Vital Signs Blood pressure systolic 00 mm Hg 07/07/19 25 Blood pressure diastolic 00 mm Hg 025 Height 5 ft 9 in in 07/07/2024 Weight 197 lbs 07/07/2024 BMI 29.09 kg/m2 07/07/2024 Encounters Encounter Location Date Provider Diagnosis [facility] [address] [place] [address] 07/07/2024 Taj Neri Jr Nausea and vomiting, [...] Provider Name:Taj marti , 11/09/2024 01:00:00 PM, [address] [place] [address] , [place], [place], [phone], Progress Notes * GIOVANNI HERNANDEZDOB:[birth year] (69 yo M)Acc No.[id number]:07/07/2024 Progress Notes Patient:?GIOVANNI HERNANDEZ Provider:?Taj Neri MD :1955???Age:69 Y???Sex:Male Eric e:07/07/2024 Address:[address] [place] [address] Pcp:Camilo Hayward D.O. Subjective: * Chief Complaints: * ???1. Patient presents today for a colon screening. * HPI: ???New symptom(s):? 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 He has a [...]
--- OUTSIDE RECORDS SUMMARY | 2024-10-03 16:37 | XMS_ITS ---
Author Organization [facility] Address [address] [place] [address] Care Team Providers Care Brass Instrument Repair Technician Name Role Phone Camilo Hayward D.O. Primary Care Provider Unavail Taj Landon Jr Unavailable REASON FOR VISIT gerd, nausea, vomiting,screening Problems Problem Type SNOMED Code ICD Code Onset Dates Problem Status W/U Status Risk Notes Problem Gastro-esophagea l reflux disease without esophagitis (300222258) Gastro-esophage al reflux disease without esophagitis (K21.9) Active confirmed Encounters Encounter Location Date Provider Diagnosis [facility] [address] [place] [phone] 07/27/2024 Taj Neri Jr Colon cancer screening [...] Provider Name:Taj marti Jr, 11/09/2024 01:00:00 PM, [address] [place] [address], [phone], Progress Notes * SANTI HERNANDEZDOB:[birth year] (69 yo M)Acc No.[id number]:07/27/2024 EGD and COL/MAC Patient:?SANTI HERNANDEZ Provider:?Taj Neri MD :1955???Age:69 Y???Sex:Male Eric e:07/27/2024 Address:[address] [place] [address] Pcp:Camilo Hayward D.O. Subjective: * Chief Complaints: * ???1. Gerd, nausea, vomiting ,screening. * Medical History:? Objective: * Vitals:? Assessment: * Assessment: 1.?Colon cancer screening - Z12.11 (Primary)???2.?Colon polyps - K63.5???3.?Intractable vomiting with nausea, unspecified vomiting type - R11.2???4.?Gastro-esophageal reflux disease without esophagitis - K21.9??? Plan: * Treatment: * Procedure Codes:?88383 LESIO N REMOVAL COLONOSCOPY, 78210 COLONOSCOPY AND BIOPSY, Modifiers: 61 , 0529F INTRVL 3+YRS PTS CLNSCP DOCD, 78345 UPPER GI ENDOSCOPY, BIOPSY * * The named appointment provid er may or may not be the originator of this progress note, and it is not deemed complete until electronically signed by the appointment provider. Sign off status: Pending * Provider:?Taj Neri MD Date:?0 07/27/2024 Generated for Josh alcaraz/Yadi/eTransmitting on:?10/03/2024 04:36 PM EDT
--- OUTSIDE RECORDS SUMMARY | 2024-10-03 16:37 | XMS_ITS | Encounter Summary ---
Author Organization [facility] Address [address] [address] Phone Care Team Providers Care Silviculture Professor Name Role Phone Heidi Hernandez Primary Care Provider [phone] Encounter Details Date Type Department Care Team ([facility] Contact Info) Description 09/15/2024 Telephone [facility] [address] [address] Sophia Puentes [place] [address] [facility] [address] [place] [address] Social History Tobacco Use Types [...] Visit [facility] [address] [place] [address] Fer Leigh MD [address] [address] documented as of this encounter Visit Diagnoses Not on filedocumented in this encounter Care Teams Silviculture Professor Relationship Specialty Start Date End Date Heidi Hernandez FNP [address] [place] [address] DR WILFREDO [place], [place] PCP - General 07/09/20 documented as of this encounter
--- NOTE | 2024-11-08 09:40 | HO.ANESPROP2 ---
Documented by User: Flores Purvis NP 11/08/24 09:42 HPI - Anesthesia Eval Consult details Narrative: 69yo M for Upper Endoscopy Follows [facility] Cardiology for CAD s/p CABG 2018, ischemic CMP (recovered EF). Stable at 09/2024 office visit. [facility] Active Problems Active Problems: All Active Problems Bilateral primary osteoarthritis of knee (Acute) Obesity (Acute) Gout (Acute) Right bundle branch block (Acute) JUAN C on CPAP (Acute) Other and unspecified hyperlipidemia (Acute) Essential hypertension (Acute) Atherosclerotic cardiovascular disease (Acute) Ischemic cardiomyopathy (Acute) Past Medical History Medical History CKD (chronic kidney disease) Diabetes Myocardial infarct Carpal tunnel syndrome Gout Right bundle branch block JUAN C on CPAP Other and unspecified hyperlipidemia Essential hypertension Atherosclerotic cardiovascular disease Ischemic cardiomyopathy Family History Family History Father No problems noted. Mother No problems noted. Family history of problems with anesthesia: No Surgical History Surgical History History of esophagogastroduodenoscopy (EGD) H/O colonoscopy History of tonsillectomy History of knee surgery H/O microdiscectomy History of cardiac catheterization History of coronary artery bypass graft (~06/2018) History of Problems with Anesthesia: No Social History Social History (Updated 10/04/24 @ 09:27 by Loree Collins CMA) Household Members Other:: Lives alone Are you a primary disabilities caregiver to a significant other at home: No Do you presently have visiting nurse or other home services: No Alcohol intake: never Patient Tobacco Use Status: Former Tobacco user Years Smoked: Quit 3 years ago Meds Allergies Allergy/AdvReac Type Severity Reaction Status Date / Time Sulfa (Sulfonamide AdvReac Mild Nausea Verified 10/04/24 09:24 Antibiotics) hydrocodone AdvReac Unknown Nausea Verified 10/04/24 09:24 Home Medications ?Medication ?Instructions ?Recorded ?Confirmed ?Last Taken ?Type aspirin 81 mg tablet,delayed 81 mg PO DAILY 09/04/20 11/09/24 11/04/24 History release spironolactone 25 mg tablet 25 mg PO DAILY 09/04/20 11/07/24 Unknown History metformin 1,000 mg tablet 1,000 mg PO BID 09/11/22 11/07/24 Unknown History sildenafil 100 mg tablet 100 mg PO DAILY PRN Erectile 03/23/23 11/07/24 Unknown History Dysfunction semaglutide 0.25 mg or 0.5 mg (2 0.25 mg subcut QWEEK 03/31/23 11/09/24 10/31/24 History mg/3 mL) subcutaneous pen injector (Ozempic) psyllium 1 tsp PO DAILY 07/25/24 11/07/24 Unknown History cholecalciferol (vitamin D3) 1,250 1,250 mcg PO QWEEK 10/04/24 11/07/24 Unknown History mcg (50,000 unit) tablet Exam Pertinent Lab Results Pertinent Lab Results: Laboratory Tests 09/29/24 07:16 WBC 12.5 H Hgb 14.4 Hct 41.8 L Plt Count 188 Sodium 138 Potassium 3.9 Chloride 110 H Carbon Dioxide 21 L BUN 28 H Creatinine 1.45 H Narrative Narrative: EKG 09/2024 Details: EKG with underlying sinus rhythm at 89/Min; FL prolongation to 260 milliseconds; right bundle-branch block; PVCs. ECHO 2020 Conclusions: - The left ventricular systolic function is normal. The visually estimated ejection fraction is between 55-60%. - There is moderately increased left ventricular wall thickness. - There is moderately decreased right ventricular systolic function. - The basal inferior segment is hypokinetic. - The left atrium is moderately dilated. - No obvious valvular pathology seen on this study. Assessment and Plan Assessment Anesthesia Assessment: Chart Reviewed Final Anesthetic Review Family History of Problems with Anesthesia: No History of Problems with Anesthesia: No Documented by User: Javier Power MD 11/09/24 13:00 [facility] Past Medical History Medical History CKD (chronic kidney disease) Diabetes Myocardial infarct Carpal tunnel syndrome Gout Right bundle branch block JUAN C on CPAP Other and unspecified hyperlipidemia Essential hypertension Atherosclerotic cardiovascular disease Ischemic cardiomyopathy Family History Family History Father No problems noted. Mother No problems noted. Surgical History Surgical History History of esophagogastroduodenoscopy (EGD) H/O colonoscopy History of tonsillectomy History of knee surgery H/O microdiscectomy History of cardiac catheterization History of coronary artery bypass graft (~06/2018) Social History Social History (Updated 10/04/24 @ 09:27 by Loree Collins CMA) Household Members Other:: Lives alone Are you a primary disabilities caregiver to a significant other at home: No Do you presently have visiting nurse or other home services: No Alcohol intake: never Patient Tobacco Use Status: Former Tobacco user Years Smoked: Quit 3 years ago Meds Allergies Allergy/AdvReac Type Severity Reaction Status Date / Time Sulfa (Sulfonamide AdvReac Mild Nausea Verified 10/04/24 09:24 Antibiotics) hydrocodone AdvReac Unknown Nausea Verified 10/04/24 09:24 Home Medications ?Medication ?Instructions ?Recorded ?Confirmed ?Last Taken ?Type aspirin 81 mg tablet,delayed 81 mg PO DAILY 09/04/20 11/09/24 11/04/24 History release spironolactone 25 mg tablet 25 mg PO DAILY 09/04/20 11/07/24 Unknown History metformin 1,000 mg tablet 1,000 mg PO BID 09/11/22 11/07/24 Unknown History sildenafil 100 mg tablet 100 mg PO DAILY PRN Erectile 03/23/23 11/07/24 Unknown History Dysfunction semaglutide 0.25 mg or 0.5 mg (2 0.25 mg subcut QWEEK 03/31/23 11/09/24 10/31/24 History mg/3 mL) subcutaneous pen injector (Ozempic) psyllium 1 tsp PO DAILY 07/25/24 11/07/24 Unknown History cholecalciferol (vitamin D3) 1,250 1,250 mcg PO QWEEK 10/04/24 11/07/24 Unknown History mcg (50,000 unit) tablet Exam Airway Mallampati Class: II TM Dist: <=3cm Neck ROM: Full Heart: ok Lungs: ok Assessment and Plan Assessment Anesthesia Assessment: Anesthesia Plan Discussed Final Anesthetic Review NPO: Yes ASA Class: III Final Preanesthetic Review: No Changes in Pt Med Stat, Meds/Allgs Chart Reviewed, Consent Obtained/Reviewed and Anes Risks/Benef Reviewed Patient Risk: Intermediate Procedure Risk: Intermediate Anesthetic Plan Anesthetic Plan: Agree w/ Assess. and Plan and TIVA Disposition: Standard PACU
[2024-11-09 12:04] VITALS: BMI 27.8
[2024-11-09 12:21] VITALS: BP 115/74; PULSE 74; RESP 18; TEMP 36.4; O2SAT 97
[2024-11-09] MEDS: Lactated Ringers 1,000 ML 100 ML IVCONT (12:32)
[2024-11-09 12:40] LABS: Glucose, Whole Blood 93 mg/dL (60-115)
--- NOTE | 2024-11-09 12:59 | MHC.SHP ---
Pre-Procedural Eval Section A - 24 Hr Update-Section A only Date of Service: 11/09/24 Section B - Complete if H&P > 30 days Chief Complaint: Ulcer of esophagus without bleeding Details of Present Illness: see H&P no changes Relevant Family History (Specify if Yes): No Relevant Social History: None Present Medications: see Short Stay Collaborative assessment Medical History: No relevant PMH History of Previous Operations: No relevant previous surgery Allergies: Allergies Allergy/AdvReac Type Severity Reaction Status Date / Time Sulfa (Sulfonamide AdvReac Mild Nausea Verified 10/04/24 09:24 Antibiotics) hydrocodone AdvReac Unknown Nausea Verified 10/04/24 09:24 Review of Systems Sugical H&P ROS: Negative: Constitution, Cardiovascular, Respiratory, Neurological, Psychiatric, Hem-Onc, Allergic/Immunologic, Gastrointestinal, Genitourinary, Musculoskeletal, Integumentary, Endocrine and Eyes/Ears/Nose/Throat Exam Surgical H&P Exam: Normal: HEENT, Normal: Heart, Normal: Lungs, Normal: Extremities, Normal: Abdomen, Normal: Skin and Normal: Neurological Plan Diagnosis/Plan: Unchanged I have reviewed the history and physical and performed a pertinent physical examination on my patient. No changes have occurred unless specified. Time Spent With Patient Time: Total time managing care of this patient today ____ minutes.
[2024-11-09 13:20] VITALS: BP 81/55; PULSE 66; RESP 14; TEMP 36.1; O2SAT 96
[2024-11-09 13:35] VITALS: BP 105/72; PULSE 71; RESP 16; O2SAT 99
[2024-11-09 13:50] VITALS: BP 120/72; PULSE 71; RESP 18; TEMP 36.1; O2SAT 100
--- NOTE | 2024-11-09 14:06 | OP_ITS ---
DATE OF SERVICE: 11/09/2024 SURGEON: Taj Neri MD INDICATIONS: Gastroesophageal reflux disease and erosive esophagitis. PREOPERATIVE DIAGNOSIS: POSTOPERATIVE DIAGNOSIS: PROCEDURE PERFORMED: Upper endoscopy with biopsy. ESTIMATED BLOOD LOSS: COMPLICATIONS: ANESTHESIA: Monitored anesthesia care. ASSISTANTS: SPECIMENS: DESCRIPTION OF PROCEDURE: A history and physical was performed. The risks and benefits of the procedure were explained to the patient. Informed consent was obtained. The patient was placed in the left lateral decubitus position. The Olympus video gastroscope was introduced into the esophagus, stomach, and duodenum. Examination was performed. The scope was removed. He tolerated the procedure well and was returned to the recovery area in stable condition. FINDINGS: Esophagus: The esophagus showed a 2 cm area suspicious for underlying Monique's esophagus. There was no esophagitis. Biopsies were obtained from the EG junction and at 36 cm. Stomach: The stomach showed no evidence of masses, ulcers, or polyps. Antral biopsies were obtained to evaluate for H pylori. Duodenum: The bulb and 2nd portion were normal. IMPRESSION: Gastroesophageal reflux disease. RECOMMENDATION: Follow up the biopsy results. MD ALFONZO Trevizo/MACI / [id number]
== END 2024-11-09 14:14 | disposition home or self-care (01) ==
PROVIDERS: PCP Family Medicine; Visit Provider Internal Medicine Gastroenterology
PROC: 0DJ08ZZ Inspection of Upper Intestinal Tract, Via Natural or Artificial Opening Endoscopic (ICD-10-PCS; CPT 43235; principal; 2024-11-09 13:00)
DX: K22.70 Barrett's esophagus without dysplasia (principal); K21.9 Gastro-esophageal reflux disease without esophagitis; K29.50 Unspecified chronic gastritis without bleeding; I12.9 Hypertensive chronic kidney disease with stage 1 through stage 4 chronic kidney disease, or unspecified chronic kidney disease; E11.22 Type 2 diabetes mellitus with diabetic chronic kidney disease; N18.9 Chronic kidney disease, unspecified; E78.5 Hyperlipidemia, unspecified; J30.9 Allergic rhinitis, unspecified; I25.10 Atherosclerotic heart disease of native coronary artery without angina pectoris; Z95.1 Presence of aortocoronary bypass graft; I25.2 Old myocardial infarction; M10.9 Gout, unspecified; G47.33 Obstructive sleep apnea (adult) (pediatric); Z79.84 Long term (current) use of oral hypoglycemic drugs; Z79.85 Long-term (current) use of injectable non-insulin antidiabetic drugs; Z79.899 Other long term (current) drug therapy; Z87.891 Personal history of nicotine dependence
CPT/HCPCS: 43239; 82947; 88305; 88313; 88342; J2003; J2704; J3010

== ENCOUNTER 2025-03-13 08:47 | Outpatient (REF) | payer MEDICARE, SELFPAY ==
--- OUTSIDE RECORDS SUMMARY | 2024-07-27 09:00 | XMS_ITS ---
Author Organization [facility] Address [address] [place] [address] Care Team Providers Care Occupational Therapy Co Director Name Role Phone Camilo Hayward D.O. Primary Care Provider Unavail Taj Landon Jr Unavailable REASON FOR VISIT gerd, nausea, vomiting,screening Problems Problem Type SNOMED Code ICD Code Onset Dates Problem Status W/U Status Risk Notes Problem Gastro-esophagea l reflux disease without esophagitis (665837570) Gastro-esophage al reflux disease without esophagitis (K21.9) Active confirmed Encounters Encounter Location Date Provider Diagnosis [facility] [place] [address] [place], [place] [phone] 07/27/2024 Taj Neri Jr Colon cancer screening [...] * SANTI HERNANDEZDOB:[birth year] (69 yo M)Acc No.[id number]:07/27/2024 EGD and COL/MAC Patient: Dali SANTI JUDD Provider: Dio Neri MD :1955 A ge:69 Y S ex:Male Date:07/27/2024 Address:[address] [place] [address] Pcp:Camilo Hayward D.O. Subjective: * Chief Complaints: [...] Procedure Codes: 4 5385 LESION REMOVAL COLONOSCOPY, 33041 COLONOSCOPY AND BIOPSY, Modifiers: 61 , 0529F INTRVL 3+YRS PTS CLNSCP DOCD, 07347 UPPER GI ENDOSCOPY, BIOPSY * * The named appointment provid er may or may not be the originator of this progress note, and it is not deemed complete until electronically signed by the appointment provider. Sign off status: Pending * Provider: Dio Neri MD Date: 0 07/27/2024 Generated for Josh alcaraz/Yadi/Larrysmitting on: 0 03/13/2025 10:05 AM EDT
--- OUTSIDE RECORDS SUMMARY | 2024-11-09 09:00 | XMS_ITS ---
Author Organization [facility] Address [address] [place] [address] Care Team Providers Care Sand Cutter Operator Name Role Phone Camilo Hayward D.O. Primary Care Provider Unavail Taj Landon Jr Unavailable [phone] REASON FOR VISIT erosive esophagitis Encounters Encounter Location Date Provider Diagnosis [facility] [place] [address] [place] [id number] 11/09/2024 Taj Neri Jr Gastro-esophageal reflux disease without esophagitis K21.9 and Erosive esophagitis K22.10 Assessments Encounter Date Diagnosis (ICD Code) Assessment Notes Treatment Notes Treatment Clinical Notes Section Notes 11/09/2024 Gastro-esophagea l reflux disease without esophagitis (ICD-10 - K21.9) 11/09/2024 Erosive esophagitis (ICD-10 - K22.10) Plan Of Treatment No Information Progress Notes * SANTI HERNANDEZDOB:[birth year] (69 yo M)Acc No.[id number]:11/09/2024 EGD/MAC Patient: SANTI SHERMAN Provider: Dio Neri MD :1955 A ge:69 Y S ex:Male Date:11/09/2024 Address:[address] [place] [address] Pcp:Camilo Hayward D.O. Subjective: * Chief Complaints: [...] 0 11/09/2024 Generated for Josh alcaraz/Yadi/Mercedesitting on: 0 03/13/2025 10:05 AM EDT
[2025-03-13 09:02] LABS: MANUAL DIFF FLAG NO
[2025-03-13 09:40] LABS: Hematocrit 42.6 % (42.0-52.0); Hemoglobin 14.3 g/dl (14.0-18.0); Imm Gran Abs Auto 0.58 X10*3/uL (0.00-0.03); Imm Gran Pct Auto 4.7 % (0.0-0.4); Lymphocytes Absolute Auto 2.1 X10*3/uL (1.2-4.9); Mean Corpuscular HGB Conc 33.6 g/dl (31.0-36.0); Mean Corpuscular Hemoglobin 29.4 pg (27.0-33.0); Mean Corpuscular Volume 87.5 fL (80.0-98.0); NRBC Abs Auto 0.000 X10*3/uL (0.0-0.012); NRBC Pct Auto 0.0 /100WBC (0.0-0.2); Platelet Count 208 X10*3/uL (160-400); Red Blood Count 4.87 X10*6/uL (4.60-5.80); White Blood Count 12.2 X10*3/uL (4.8-10.8)
[2025-03-13 09:55] LABS: Hemoglobin A1C 124.6656 umol/L; Total Hemoglobin (HGBA1C) 3703.2378 umol/L
--- OUTSIDE RECORDS SUMMARY | 2025-03-13 10:05 | XMS_ITS | Encounter Summary ---
Author Organization [facility] Address [address] [facility] [[email or web address]] [address] [place] [address] Phone Care Team Providers Care Label Printing Machinist Name Role Phone Heidi Hernandez Primary Care Provider [phone] Encounter Details Date Type Department Care Team (Late Contact Info) Description 02/17/2024 Office Communication [facility] [address] [facility] [[email or web address]] [address] [place] [address] Fer Leigh MD [address] [address] Social History Tobacco Use Types [...] Visit [facility] [address] [place] [address] Fer Leigh MD [address] [address] documented as of this encounter Visit Diagnoses Not on filedocumented in this encounter Care Teams Label Printing Machinist Relationship Specialty Start Date End Date Heidi Hernandez FNP [address] [place] [address] DR WILFREDO DUNCAN [place] PCP - General 07/09/20 documented as of this encounter
--- OUTSIDE RECORDS SUMMARY | 2025-03-13 10:05 | XMS_ITS | Encounter Summary ---
Author Organization [facility] Address [address] [address] Phone Care Team Providers Care Social Work Specialist Name Role Phone Heidi Hernandez Primary Care Provider [phone] Reason for Visit * Reason Comments Med Change Request Encounter Details Date Type Department Care Team ([facility] Contact Info) Description 06/30/2024 Refill [facility] [address] [place] [address] Fer Leigh MD [address] [address] Social History Tobacco Use Types [...] Visit [facility] [address] [place] [address] Fer Leigh MD [address] [address] documented as of this encounter Visit Diagnoses Not on filedocumented in this encounter Care Teams Social Work Specialist Relationship Specialty Start Date End Date Heidi Hernandez FNP [address] [place] PCP - General 07/09/20 documented as of this encounter
--- OUTSIDE RECORDS SUMMARY | 2025-03-13 10:05 | XMS_ITS | Clinical Summary ---
Author Organization [employer] Address [address] [address] Phone Care Team Providers Care Anodic Operator Name Role Phone Yesy Camilo THOMAS Primary Care Provider [phone] Allergies Active Allergy Reactions Criticality Noted Date Comments Sulfa (Sulfonamide Antibiotics) 02/28 Medications amLODIPine (NORVASC) 10 mg tablet Take 1 tablet (10 mg total) by mouth 1 (one) time each day. 4 Active aspirin 81 mg EC tablet Take 1 tablet (81 mg total) by mouth. Active ergocalciferol (VITAMIN D-2) 1,250 mcg (50,000 unit) capsule Take 1 capsule (50,000 Units total) by mouth every 30 (thirty) days. 4 Active furosemide (LASIX) 40 mg tablet Take 1 tablet (40 mg total) by mouth 1 (one) time each day. 4 Active multivitamin (MULTIPLE VITAMINS ORAL) Take [...] DAILY NEEDED. 4 tablet 44 4 Active allopurinoL (ZYLOPRIM) 300 mg tablet Take 1 tablet (300 mg total) by mouth 1 (one) time each day. Active carvediloL (COREG) 6.25 mg tablet Take 1 tablet (6.25 mg total) by mouth 1 (one) time each day. Active semaglutide (OZEMPIC) 0.25 mg or 0.5 mg (2 mg/3 mL) injection penIndications: Type 2 diabetes mellitus with other specified complication, without long-term current use of insulin ([facility] V24, [facility] V28) Inject 0.5 mg under the skin every 7 (seven) days. 9 mL 1 5 05/22/20 25 Active metFORMIN (GLUCOPHAGE) 1,000 mg tablet Take 1 tablet (1,000 mg total) by mouth 1 (one) time each day with breakfast. 90 each 5 03/27/20 25 Active ezetimibe (ZETIA) 10 mg tablet TAKE 1 TABLET BY MOUTH EVERY DAY 90 tablet 2 5 Active atorvastatin (LIPITOR) 80 mg tabletIndicatio ns:Coronary artery disease involving coronary bypass graft of [place] heart without angina pectoris Take 1 tablet (80 mg total) by mouth 1 (one) time each day. 90 each 3 5 03/10/20 26 Active atorvastatin (LIPITOR) 80 mg tabletIndicatio ns:Coronary artery disease involving coronary bypass graft of [place] heart without angina pectoris Take 1 tablet (80 mg total) by mouth 1 (one) time each day. 90 tablet 5 03/10/20 25 Discontinu ed(Reorder ) Active Problems Problem Noted Date Diagnosed Date Allergic rhinitis 05/16/2024 Anxiety 05/16/2024 Depression 05/16/2024 Assessment & Plan (11/23/2024 10:10 AM EDT): PHQ-9: 7. Pt declined treatment at this time. Pt to f/u in 3M to repeat PHQ-9 and consider treatment on subsequent encounter. Hypertension 05/16/2024 Sleep apnea 05/16/2024 Hypertensive heart and renal disease with (congestive) heart failure ([facility] V24, [facility] V28) 09/13/2020 Assessment & Plan (11/23/2024 10:10 AM EDT): Pt to f/u with cardiology. Coronary artery disease invo lving coronary bypass graft of [place] heart without angina pectoris 03/07/2019 Assessment & Plan (11/23/2024 10:10 AM EDT): Pt to f/u with cardiology Immunizations Name Administration Dates Next Due Influenza Quadravalent, 0.5m l (Fluad) 65yo and older 04/22/2023 Influenza Quadravalent, 0.5m l (Fluzone High-dose) 65yo and older 04/02/2021 Influenza trivalent, 0.5mL ( Fluzone High-dose) 65yo and older 04/14/2024 OP3Nvoice SARS-CoV-2 COVID-19, mRNA, LNP-S, preservative free 05/20/2021,07/13/2020,06/21/2020 Pneumococcal conjugate 20 va lent (Prevnar 20, PCV 20) 2mo and older 06/05/2023 RSV, bivalent, protein subun it RSVpreF, 0.5mL, Preservative Free (Arexvy) 60yo and older 04/22/2023 Tdap Tetanus diptheria acell ular pertussis (Boostrix; Adacel) 7yo and older 11/12/2020 Surgical History Surgery Date Site/Laterality Comments ADENOIDECTOMY [...] Cigarettes Q uit: 06/29/2019 Smokeless Tobacco: Never Tobacco Cessation:Counseling Given: Not Answered Alcohol Use Standard Drinks/Week Comments Yes 0 (1 standard drink = 0.6 oz pur e alcohol) Housing Instability Answer Date Recorde d Are you worried that in the next 2 months you may not have stable housing? No 11/22/2024 Food Access & Nutrition Answer Date Rec orded Do you have access to a vari ety of food including fruits and vegetables? Yes 11/22/2024 Health Literacy Answer Date Recorded How often do you need to hav e someone help you when you read instructions, pamphlets, or other written material from your doctor or pharmacy? Rarely 11/22/2024 Caregiver: How often do you need to have someone help you when you read instructions, pamphlets, or other written material from your doctor or pharmacy? Not on file 11/22/2024 Financial Risk Answer Date Recorded How hard is it for you to pa y for the very basics like food, housing, medical care, and air conditioning / heating? Not very hard 11/22/2024 Transportation Answer Date Recorded Has the lack of transportati on kept you from meetings, work, or from getting things needed for daily living? No Has the lack of transportati on kept you from medical appointments or from getting medications? No 11/22/2024 Social Isolation Answer Date Recorded How often do you feel lonely or isolated from those around you? Sometimes 11/22/2024 Food Risk Answer Date Recorded Within the past 12 months we worried whether our food would run out before we got money to buy more. Never true 11/22/2024 Within the past 12 months th e food we bought just didn't last and we didn't have money to get more. Never true 11/22/2024 Dependent Care Answer Date Recorded Do you need help finding or paying for care for your loved ones. For example, child protective investigator or elderly care for an older adult? No 11/22/2024 Education Answer Date Recorded Do you think completing more education or training, like finishing a GED, going to college, or learning a trade, would be helpful for you? No 11/22/2024 Employment and Income Answer Date Recor ded During the last four weeks, have you been actively looking for work? No 11/22/2024 Living Situation Answer Date Recorded What is your living situation? 0 11/22/2024 Sex and Gender Information Value Date Recorded Sex Assigned at Not on file Legal Sex Male 9:52 AM EST Gender Identity Not on file Sexual Orientation Not on file Obstetrics History Last Filed Vital Signs Vital Sign Reading Time Taken Comments Blood Pressure 116/74 11/23/2024 9:17 AM EDT Pulse 83 11/23/2024 9:17 AM EDT Temperature 36.9 C (98.4 F) 11/23/2024 9:17 AM EDT Respiratory Rate - - Oxygen Saturation 97% 11/23/2024 9:17 AM EDT Inhaled Oxygen Concentration - - Weight 84.3 kg (185 lb 14.4 oz) 11/23/2024 9:17 AM EDT Height 177.8 cm (5' 10 ) 11/23/2024 9:17 AM EDT Body Mass Index 26.67 11/23/2024 9:17 AM EDT Plan of Treatment Upcoming Encounters Date Type Department Care Team (Late st Contact Info) Description 03/28/2025 10:30 AM EDT Office Visit Internal Medicine - [place] [address] [place] [address] Camilo Hayward DO [address] [place] [address] Health Maintenance Due Date Last Done Comments Diabetes: Annual Foot Exam 1965 Diabetes: Annual GFR (Glomerular Filtration Rate) 08/31/2020 09/01/2019 Cholesterol Screening (Lipid Panel) 06/07/2022 Hepatitis C Screening 06/07/2022 Hypertension/CHF/CAD Annual BMP Blood Test 06/07/2022 09/01/2019 Diabetes: Blood Sugar Control Test (HGBA1C) 04/07/2024 COVID-19 Vaccine ( season) 2025 04/14/2024, 05/20/2021, 07/13/2020, Additional history exists Influenza Vaccine (#1) 2025 , 04/22/2023, 04/02/2021 Diabetes: Annual Retina Eye Exam 07/12/2025 07/12/2024 Diabetes: Annual Urine Albumin-Creatinine Ratio (uACR) 09/29/2025 09/29/2024, 11/30/2023 Social Influencers of Health Screening 11/22/2025 11/22/2024 Falls Risk Assessment 11/23/2025 11/23/2024, Medicare Annual Wellness Visit 11/23/2025 11/23/2024 DTaP,Tdap,and Td Vaccines (2 - Td or Tdap) 11/12/2030 11/12/2020 Colorectal Cancer Screening: Colonoscopy 07/19/2034 07/19/2024, 02/06/2011 RSV Immunization Adult Patients Completed 04/22/2023 Pneumococcal Vaccine: 50+ Years Completed 06/05/2023 Depression Screening Completed 11/23/2024, 03/28/20 Abdominal Aortic Aneurysm (AAA) Screen Discontinued HIB Vaccines Aged Out No longer eligi [...] on patient's age to complete this topic Zoster Vaccines Discontinued Procedures Procedure Name Priority Date/Time Associated Diagnosis [...] Region Laterality Modality Ultrasound Provider [facility] IMG US PROCEDURES Final Result * Falls Risk Assessment (03/28/2024) [facility] Falls Risk Assessment ABSTRACTED [facility] Provider HEALTH MAINTENANCE Final Result * Depression Screening (03/28/2024) Pathologist [facility] Depression Screening ABSTRACTED Result [facility] Provider HEALTH MAINTENANCE Final Result * Urine Albumin Creatinine Ratio (11/30/2023) Pathologist [facility] Urine Albumin Creatinine Ratio ABSTRACTED Result [facility] Provider HEALTH MAINTENANCE Final Result * Annual BMP Blood Test (09/01/2019) Pathologist [facility] Annual BMP Blood Test ABSTRACTED [facility] Provider HEALTH MAINTENANCE Final Result * Colonoscopy (02/06/2011) [facility] Colonoscopy no interpretation , abstracted Anatomical Region Laterality Modality Other [facility] Provider HEALTH MAINTENANCE Final Result from Last 3 Months or Most Recently Relevant to Health Maintenance Insurance [employer] [place] MEDICARE ADVANTAGE MEDICARE Advance Directives Healthcare Agents on File Name Relationship Healthcare Agent [facility] Communication Lise Srrell Relative First Alternate Health Care Agent Care Teams Anodic Operator Relationship Specialty Start Date End Date Camilo Hayward DO [address] [place] [address] PCP - General 04/27/23
--- OUTSIDE RECORDS SUMMARY | 2025-03-13 10:05 | XMS_ITS | Clinical Summary ---
Author Organization [facility] Address [address] [place] [address] Phone Care Team Providers Care Respiratory Practitioner Name Role Phone Heidi Hernandez MAINTENANCE MECHANIC SUPERVISOR Primary Care Provider [phone] Allergies Active Allergy Reactions Criticality Noted Date [...] 1 (one) time each day 1 Active sildenafil (VIAGRA) 100 MG tablet Take [...] in the morning. 90 tablet 3 5 Active ergocalciferol 1.25 MG (65132 UT) capsule TAKE 1 CAPSULE (50,000 UNITS TOTAL) BY MOUTH EVERY 30 DAYS 3 capsule 5 Active furosemide (LASIX) 40 MG tablet TAKE 1 TABLET BY MOUTH EVERY DAY 90 tablet 2 5 Active furosemide (LASIX) 40 MG tablet Take 1 tablet by mouth 1 (one) time each day 025 Discontinued Active Problems Problem Noted Date [...] Encounters Date Type Department Care Team Description 02/16/2025 Refill [facility] [address] [place] [phone] Fer Leigh MD 01/25/2025 Orders Only [facility] [address] [place] [address] Fer Leigh MD Stage 3b chronic kidney disease (HCC); Type 2 diabetes mellitus with diabetic chronic kidney disease (HCC); Hypertension 01/04/2025 Refill [facility] [address] [place] [phone] Fer Leigh MD from Last 3 Months [...] Visit [facility] [address] [place] [address] Fer Leigh MD [address] [facility] [address] [place] [phone] Health Maintenance Due Date Last Done Comments Pneumococcal Vaccine: 50+ Years (1 of 2 - PCV) 1976 Colorectal Cancer Screening: Annual FOBT 2006 Colorectal Cancer Screening: Colonoscopy 2006 Colorectal Cancer Screening: Sigmoidoscopy 2006 Diabetes: Hemoglobin A1C 06/04/2023 Diabetes: Ophthalmology Exam 06/04/2023 Diabetes: Pedal Pulse Checked 06/04/2023 Diabetes: Sensory Foot Exam 06/04/2023 Diabetes: Visual Foot Exam 06/04/2023 Influenza Vaccine (#1) 2025 , 04/22/2023 Hepatitis B Vaccine Aged Out No longe r eligible based on patient's age to complete this topic Insurance Care Teams Respiratory Practitioner Relationship Specialty Start Date End Date Heidi Hernandez FNP [address] [place] [address] [address] [place], [place] PCP - General 07/09/20
--- OUTSIDE RECORDS SUMMARY | 2025-03-13 10:05 | XMS_ITS | Clinical Summary ---
Author Organization [facility] Address [address] [place] [address] Care Team Providers Care Director Of Search Engine Marketing Name Role Phone Camilo Hayward MD Primary [...] 3 03/14/2024 Active ergocalciferol (VITAMIN D2) capsule 19484 units Take 1 capsule (50,000 Units total) by mouth every 30 (thirty) days. 0 02/17/2024 Active Active Problems Problem Noted Date Diagnosed Date Hypertensive heart and renal disease with (congestive) heart failure 09/13/2020 Coronary artery disease invo lving coronary bypass graft of [place] heart without angina pectoris 03/07/2019 Allergic rhinitis Anxiety Depression Hypertension Sleep apnea Immunizations Name Administration Dates Next Due Covid-19 (Peerby) Dilution Required 05/20/2021,0 07/13/2020,06/21/2020 Covid-19 (Peerby) Ready To Use 04/14/2024 Influenza Quad (Fluad) [...] 90 03/28/2024 10:52 AM EDT Temperature 36.3 C (97.3 F) 03/28/2024 10:52 AM EDT Respiratory Rate 16 07/17/2022 3:43 PM EST [...] Screening 2022 Diabetes: Foot Exam 03/24/2024 03/24/2023, Tobacco Cessation Counseling 10/29/2024 10/30/2023 Diabetes: Microalbumin Test 11/29/2024 11/30/2023 COVID-19 Vaccine ( season) 2025 04/14/2024, 05/20/2021, 07/13/2020, Additional history exists Influenza Vaccine (#1) 2025 , 04/22/2023, 04/02/2021 BMI Counseling 03/28/2025 03/28/2024, 05/0 08/2023, 03/24/2023, Additional history exists Depression Screening 03/28/2025 03/28/2024, 03/28/2024, 03/24/2023, Additional history exists Fall Risk Assessment 03/28/2025 03/28/2024, 03/28/2024, 03/24/2023, Additional history exists Preventative Health Evaluation 03/28/2025 03/28/2024, 03/24/2023, 01/09/2022 RSV Adult > 60+ Yrs or Completed 04/22/2023 Pneumococcal Vaccine Completed 06/05/2023 Hepatitis B Vaccines Aged Out No long er eligible based on patient's age to complete this topic Hepatitis C Screening Discontinued RSV Ped < 20 months Aged Out No longe r eligible based on patient's age to complete this topic Insurance Payer Benefit Plan / Group Subscriber ID Effective Dates Phone Address [facility] [id number] 2023-Present [address] [address] HMO Care Teams Director Of Search Engine Marketing Relationship Specialty Start Date End Date Camilo Hayward MD PCP - General Family Medicine 04/27/23
--- OUTSIDE RECORDS SUMMARY | 2025-03-13 10:05 | XMS_ITS | Patient Health Record ---
Author Organization [facility] Address [address] [place] [address] Care Team Providers Care Employment Attorney Name Role Phone Camilo Hayward D.O. Primary Care Provider Unavail able Daron Mcfadden Taj Unavailable Allergies No Known Allergies Results Component Value Reference Range Notes Glucose, Whole Blood Reviewed date:07/27/2024 04:44:26 PM Interpretation: Performing Lab:[facility], [address] [place] [phone] Notes/Report: Glucose, Whole Blood 95 60-115 mg/dL METER # : [id number] Pathology Reviewed date:08/04/2024 01:22:16 PM Interpretation: Performing Lab:[facility], [address] [place] [phone] Notes/Report: Glucose, Whole Blood Reviewed date:07/27/2024 04:44:21 PM Interpretation: Performing Lab:[facility], [address] [place] [phone] Notes/Report: Glucose, Whole Blood 88 60-115 mg/dL METER # : [id number] Glucose, Whole Blood Reviewed date:11/10/2024 08:13:44 AM Interpretation: Performing Lab:[facility], [address] [place] [phone] Notes/Report: Glucose, Whole Blood 93 60-115 mg/dL METER # : [id number] Pathology Reviewed date:11/17/2024 10:37:26 AM Interpretation: Performing Lab:[facility], [address] [place] [phone] Notes/Report: Reason For Referral No Information Medications Medication SIG (Take, Route, Frequency, Duration) Notes Start Date End Date Status Turmeric Active Aspirin 81 Active metFORMIN HCl 1000 MG Oral for 90 Active Allopurinol 300 MG Oral for 90 Active Vitamin D (Ergocalciferol) 1.25 MG (20269 UT) TAKE 1 CAPSULE (50,000 UNITS TOTAL) [...] Problem Status W/U Status Risk Notes Problem 760256130 Colon cancer screening (Z12.11) Active confirmed Problem Gastro-esophage al reflux disease without esophagitis (406536112) Gastro-esophageal reflux disease without esophagitis (K21.9) Active confirmed Problem [id number] Gastroesophageal reflux disease without esophagitis (K21.9) Active confirmed Problem [id number] Nausea and vomiting, unspecified vomiting type (R11.2) Active confirmed Vital Signs Blood pressure diastolic 00 mm Hg 07/07/2024 Height 5 ft 9 in in 07/07/2024 Blood pressure systolic 00 mm Hg 07/07/2024 Weight 197 lbs 07/07/2024 BMI 29.09 kg/m2 07/07/2024 Encounters Encounter Location Date Provider Diagnosis [facility] [address] [place] [id number] 07/27/2024 Taj Neri Jr Colon cancer screening Z12.11 ; Colon polyps K63.5 ; Intractable vomiting with nausea, unspecified vomiting type R11.2 and Gastro-esophageal reflux disease without esophagitis K21.9 [facility] [address] [place] [id number] 11/09/2024 Taj Neri Jr Gastro-esophageal reflux disease without esophagitis K21.9 and Erosive esophagitis K22.10 [facility] [address] [facility] [place] [address] 07/07/2024 Taj Neri Jr Nausea and vomiting, unspecified vomiting type R11.2 ; Gastroesophageal reflux disease without esophagitis K21.9 and Colon cancer screening Z12.11 [facility] [address] [place] [address] 08/04/2024 Taj Neri Jr [facility] [address] [place] [phone] 11/17/2024 Taj Neri Jr Assessments Encounter Date Diagnosis (ICD Code) Assessment Notes Treatment Notes Treatment Clinical Notes Section Notes 07/27/2024 Colon cancer screening (ICD-10 - Z12.11) 07/27/2024 Colon polyps (ICD-10 - K63.5) 11/09/2024 Gastro-esophageal reflux disease without esophagitis (ICD-10 - K21.9) 11/09/2024 Erosive esophagitis (ICD-10 - K22.10) 07/07/2024 Gastroesophageal reflux disease without esophagitis (ICD-10 [...] Insured Coverage Start Date Coverage End Date [employer] [address] [place] [id number] SANTI HERNANDEZ Self - patient is the insured Medical (General) History Medical History History ICD Code Hypertension and Allergic rhinitis Diabetes mellitus type 2 Coronary artery disease with history of DC and CABG Gout Chronic kidney disease Colonoscopy, 03/09, hyperplastic polyp, t en-year followup Hyperlipidemia JUAN C Surgical History Surgery Date(Month/Year) tonsillectomy and adenoidectomy spinal surgery triple bypass
--- OUTSIDE RECORDS SUMMARY | 2025-03-13 10:05 | XMS_ITS | Encounter Summary ---
Author Organization [facility] Address [address] [address] Phone Care Team Providers Care Gem Expert Name Role Phone Heidi Hernandez Primary Care Provider [phone] Reason for Visit * Reason Comments Med Change Request Encounter Details Date Type Department Care Team ([facility] Contact Info) Description 06/30/2024 Refill [facility] [address] [place] [address] Fer Leigh MD [address] [address] Social History Tobacco Use Types [...] Office Visit [facility] [address] [place] [address] Fer Leigh MD [address] [phone] documented as of this encounter Visit Diagnoses Not on filedocumented in this encounter Care Teams Gem Expert Relationship Specialty Start Date End Date Heidi Hernandez FNP [address] [place] PCP - General 07/09/20 documented as of this encounter
--- OUTSIDE RECORDS SUMMARY | 2025-03-13 10:05 | XMS_ITS ---
Author Name [facility] Organization Unknown History of Medication Use Medication Directions Dispensed Refills Start Date End Date Stat semaglutide (OZEMPIC) 0.25 mg or 0.5 mg (2 mg/3 mL) injection pen Inject 0.5 mg under the skin every 7 (seven) days. 11/23/2024 active semaglutide (Ozempic) 1 mg/dose (4 mg/3 mL) injection pen Inject 1 mg under the skin every 7 (seven) days. 09/12/2024 11/23/2024 aborted sildenafiL (VIAGRA) 100 mg tablet TAKE 1 TABLET (100 MG TOTAL) BY MOUTH DAILY NEEDED. 06/02/2024 active atorvastatin (LIPITOR) 80 mg tablet TAKE 1 TABLET BY MOUTH EVERY DAY 06/01/2024 active amLODIPine (NORVASC) 10 mg tablet Take 1 tablet (10 mg total) by mouth 1 (one) time each day. 03/14/2024 active carvediloL (COREG) 12.5 mg tablet TAKE 1.5 TABLETS (18.75 MG TOTAL) BY MOUTH 2 (TWO) TIMES A DAY WITH MEALS. 03/14/2024 active spironolactone (ALDACTONE) 25 mg tablet Take 1 tablet (25 mg total) by mouth 1 (one) time each day. 03/14/2024 active ergocalciferol (VITAMIN D-2) 1,250 mcg (50,000 unit) capsule Take 1 capsule (50,000 Units total) by mouth every 30 (thirty) days. 02/17/2024 active metFORMIN (GLUCOPHAGE) 1,000 mg tablet Take 1 tablet (1,000 mg total) by mouth every morning with breakfast. 10/30/2023 active semaglutide (Ozempic) 1 mg/dose (4 mg/3 mL) injection pen Inject 0.75 mL (1 mg total) under the skin once a week. 10/30/2023 active carvedilol (COREG) 12.5 MG tablet TAKE 1.5 TABLETS (18.75 MG TOTAL) BY MOUTH 2 (TWO) TIMES A DAY WITH MEALS. 09/22/2023 active furosemide (LASIX) 40 mg tablet Take 1 tablet (40 mg total) by mouth 1 (one) time each day. 09/22/2023 active ezetimibe (ZETIA) 10 mg tablet Take 1 tablet (10 mg total) by mouth 1 (one) time each day. 09/02/2023 active ezetimibe (ZETIA) tablet 10 mg Take 1 tablet (10 mg total) by mouth daily. 09/02/2023 active allopurinol (ZYLOPRIM) 100 MG tablet TAKE 1/2 TAB BY MOUTH EVERY DAY FOR 4 WEEKS THEN TAKE 1 TABLET DAILY 06/24/2022 active allopurinoL (ZYLOPRIM) 100 mg tablet Take 3 tablets (300 mg total) by mouth daily. 06/24/2022 active allopurinoL (ZYLOPRIM) 300 mg tablet Take 1 tablet (300 mg total) by mouth 1 (one) time each day. active aspirin 81 mg EC tablet Take 1 tablet (81 mg total) by mouth. active aspirin 81 MG EC tablet Take 1 tablet (81 mg total) by mouth. active carvediloL (COREG) 6.25 mg tablet Take 1 tablet (6.25 mg total) by mouth 1 (one) time each day. active psyllium (METAMUCIL) 0.4 gram capsule Take 0.104 g by mouth. active turmeric 400 mg capsule Take 4 caplet by mouth daily. active Allergies Allergen Reaction Severity Comment Documented Date Source Statu s SULFA (SULFONAMIDE ANTIBIOTICS) 03/21/2021 [facility] active SULFA ANTIBIOTICS 03/21/2021 [facility] ac tive Problems Problem Status Onset Date Problem Type Date of Resolution Source Chronic gout without tophus, unspecified cause, unspecified site active EncounterDiagnosisAct [facility] Mixed hyperlipidemia active EncounterDiagnosisA ct [facility]EM[facility] Hypertensive heart and renal disease with (congestive) heart failure active 2020-09-13 ProblemAct [facility] Allergic rhinitis active ProblemAct C [facility]NEM[facility] Allergic rhinitis active 2024-05-16 ProblemAct [facility] Hypertension active ProblemAct [facility] MG Other fatigue active EncounterDiagnosisAct [facility]NEMG Coronary artery disease involving coronary bypass graft of [place] heart without angina pectoris active 2019-03-07 ProblemAct [facility] Depression active ProblemAct [facility] Depression active 2024-05-16 ProblemAct [facility] R[facility] Elevated PSA active EncounterDiagnosisAct [facility]THNEMG Type 2 diabetes mellitus without complication, without long-term current use of insulin (HCC) active EncounterDiagnosisAct CTTHN EMG Stage 3b chronic kidney disease (HCC) active EncounterDiagnosisAct [facility] Hypertension active 2024-05-16 ProblemAct [facility] SFR[facility] Sleep apnea active ProblemAct [facility] G Anxiety active 2024-05-16 ProblemAct [facility] AN Anxiety active ProblemAct [facility] Sleep apnea active 2024-05-16 ProblemAct [facility] Colon cancer screening active EncounterDiagnosisAct [facility]THNE MG Immunizations Vaccine Date Source Lot Number Status Influenza trivalent, 0.5mL ( Fluzone High-dose) 65yo and older 04/14/2024 [facility] comple yayo Pneumococcal conjugate 20 va lent (Prevnar 20, PCV 20) 2mo and older 06/05/2023 [facility] [id number] comple yayo Influenza Quadravalent, 0.5m l (Fluad) 65yo and older 04/22/2023 [facility] [id number] completed RSV, bivalent, protein subun it RSVpreF, 0.5mL, Preservative Free (Arexvy) 60yo and older 04/22/2023 [facility] [id number] completed Communicado SARS-CoV-2 COVID-19, mRNA, LNP-S, preservative free 05/20/2021 [facility] completed Influenza Quadravalent, 0.5m l (Fluzone High-dose) 65yo and older 04/02/2021 [facility] comple yayo Tdap Tetanus diptheria acell ular pertussis (Boostrix; Adacel) 7yo and older 11/12/2020 [facility] completed Communicado SARS-CoV-2 COVID-19, mRNA, LNP-S, preservative free 07/13/2020 [facility] completed Communicado SARS-CoV-2 COVID-19, mRNA, LNP-S, preservative free 06/21/2020 [facility] completed Encounters Encounter Type Encounter Reason Primary Diagnosis Location Date Ambulatory Medicare Annual Wellness Visit Subsequent Encounter for general adult medical examination without abnormal findings [facility] 11/23/2024 Care Team Organization Name Specialty Phone Email Start Date End Gabriel judd [facility] 11/23/2024 [facility] 11/23/2024
[2025-03-13 10:22] LABS: Alanine Aminotransferase 19 U/L (0-40); Albumin Level 4.4 g/dL (3.5-5.0); Alkaline Phosphatase 92 U/L (39-117); Anion Gap 14 (12-20); Aspartate Amino Transferase 23 U/L (5-37); Blood Urea Nitrogen 38 mg/dL (9-16); Calcium 9.1 mg/dL (8.4-10.2); Carbon Dioxide 24 mmol/L (22-29); Chloride 107 mmol/L (96-108); Cholesterol 114 mg/dL (<200); Estimated Glomerular Filt Rate 42; HDL Cholesterol 26 mg/dL (>40); Potassium 4.6 mmol/L (3.3-5.1); Sodium 140 mmol/L (135-145); Total Protein 7.2 g/dL (6.5-8.0); Triglycerides 120 mg/dL (<150)
== END 2025-03-13 08:48 | disposition home or self-care (01) ==
LOC: HO.LAB 08:47
PROVIDERS: PCP Family Medicine; Visit Provider Family Medicine
DX: I13.0 Hypertensive heart and chronic kidney disease with heart failure and stage 1 through stage 4 chronic kidney disease, or unspecified chronic kidney disease (principal); N18.9 Chronic kidney disease, unspecified; I50.9 Heart failure, unspecified; I25.810 Atherosclerosis of coronary artery bypass graft(s) without angina pectoris; I15.9 Secondary hypertension, unspecified; R73.09 Other abnormal glucose; R53.83 Other fatigue; G47.30 Sleep apnea, unspecified
CPT/HCPCS: 36415; 80053; 80061; 83036; 84443; 85025

== ENCOUNTER 2025-03-29 09:44 | Outpatient (REF) | payer MEDICARE, SELFPAY ==
--- OUTSIDE RECORDS SUMMARY | 2024-07-27 09:00 | XMS_ITS ---
Author Organization [facility] Address [address] [place] [address] Care Team Providers Care Airframe Technical Officer Name Role Phone Camilo Hayward D.O. Primary Care Provider Unavail Taj Landon Jr Unavailable REASON FOR VISIT gerd, nausea, vomiting,screening Problems Problem Type SNOMED Code ICD Code Onset Dates Problem Status W/U Status Risk Notes Problem Gastro-esophagea l reflux disease without esophagitis (687525338) Gastro-esophage al reflux disease without esophagitis (K21.9) Active confirmed Encounters Encounter Location Date Provider Diagnosis [facility] [place] Outpatient [address] [place], [place] [phone] 07/27/2024 Taj Neri Jr Colon cancer screening [...] * SANTI HERNANDEZDOB:[birth year] (69 yo M)Acc No.[id number]:07/27/2024 EGD and COL/MAC Patient: Dali SANTI JUDD Provider: Dio Neri MD :1955 A ge:69 Y S ex:Male Date:07/27/2024 Address:[address] [place] [address] Pcp:Camilo Hayward D.O. Subjective: * Chief Complaints: [...] Procedure Codes: 4 5385 LESION REMOVAL COLONOSCOPY, 44200 COLONOSCOPY AND BIOPSY, Modifiers: 61 , 0529F INTRVL 3+YRS PTS CLNSCP DOCD, 04862 UPPER GI ENDOSCOPY, BIOPSY * * The named appointment provid er may or may not be the originator of this progress note, and it is not deemed complete until electronically signed by the appointment provider. Sign off status: Pending * Provider: Dio Neri MD Date: 0 07/27/2024 Generated for Josh alcaraz/Yadi/Edytaransmitting on: 1 10:39 AM EDT
--- OUTSIDE RECORDS SUMMARY | 2024-11-09 09:00 | XMS_ITS ---
Author Organization [facility] Address [address] [place] [address] Care Team Providers Care Automobile Lights Assembler Name Role Phone Camilo Hayward D.O. Primary Care Provider Unavail Taj Landon Jr Unavailable REASON FOR VISIT erosive esophagitis Encounters Encounter Location Date Provider Diagnosis [facility] [place] [address] [place] [id number] 11/09/2024 Taj Neri Jr Gastro-esophageal reflux disease without esophagitis K21.9 and Erosive esophagitis K22.10 Assessments Encounter Date Diagnosis (ICD Code) Assessment Notes Treatment Notes Treatment Clinical Notes Section Notes 11/09/2024 Gastro-esophagea l reflux disease without esophagitis (ICD-10 - K21.9) 11/09/2024 Erosive esophagitis (ICD-10 - K22.10) Plan Of Treatment No Information Progress Notes * SANTI HERNANDEZDOB:[birth year] (69 yo M)Acc No.[id number]:11/09/2024 EGD/MAC Patient: SANTI SHERMAN Provider: Dio Neri MD :1955 A ge:69 Y S ex:Male Date:11/09/2024 Address:[address] [place] [address] Pcp:Camilo Hayward D.O. Subjective: * Chief Complaints: [...] 11/09/2024 Generated for Josh alcaraz/Yadi/Mercedesitting on: 1 10:39 AM EDT
--- OUTSIDE RECORDS SUMMARY | 2025-03-28 10:30 | XMS_ITS | Encounter Summary ---
Author Organization [facility] Address [address] [place] [address] Care Team Providers Care Clutch Operator Name Role Phone Camilo Hayward DO Primary Care Provider Reason for Visit * Reason Comments Diabetes Follow-up Follow up in about 4 months (around 03/26/2025) for Type 2 DM POCT a1c + PHQ-9.; Pt report has an appt at [facility] for Flu Vaccine Encounter Details Date Type Department Care Team (Late st Contact Info) Description 03/28/2025 10:30 AM EDT Office Visit Internal Medicine - [place] [address] [place] [address] Cmailo Hayward DO [address] [place] [address] Type 2 diabetes mellitus with other specified complication, without long-term current use of insulin (CMS/HCC V24, CMS/HCC V28) (Primary Dx); Coronary artery disease involving coronary bypass graft of [place] heart without angina pectoris; Hypertensive heart and renal disease with (congestive) heart failure (CMS/HCC V24, CMS/HCC V28); Chronic right shoulder pain; Neck pain; Essential hypertension; Mixed hyperlipidemia; Gout, unspecified cause, unspecified chronicity, unspecified site Social History Tobacco Use Types Packs/Day Years [...] care for your loved ones. For example, special needs child caregiver or elderly care for an older adult? [...] Date Recorded What is your living situation? Unrecognized valu e 11/22/2024 Sex and Gender Information Value Date Recorded Sex Assigned at Not on file Legal Sex Male 9:52 AM EST Gender Identity Not on file Sexual Orientation Not on file documented as of this encounter Last Filed Vital Signs Vital Sign Reading Time Taken Comments Blood Pressure 120/81 03/28/2025 10:14 AM EDT Pulse 76 03/28/2025 10:14 AM EDT Temperature 36.8 C (98.2 F) 03/28/2025 10:14 AM EDT Respiratory Rate 18 03/28/2025 10:14 AM EDT Oxygen Saturation 97% 03/28/2025 10:14 AM EDT Inhaled Oxygen Concentration - - Weight 88.9 kg (196 lb) 03/28/2025 10:14 AM EDT Height 177.8 cm (5' 10 ) 03/28/2025 10:14 AM EDT Body Mass Index 28.12 03/28/2025 10:14 AM EDT documented in this encounter Ordered Prescriptions Prescription Sig Dispense Quantity Refills Last Filled Start Date End Date semaglutide (OZEMPIC) 0.25 mg or 0.5 mg (2 mg/3 mL) injection penIndications:Typ e 2 diabetes mellitus with other specified complication, without long-term current use of insulin ([facility] V24, [facility] V28) Inject 0.5 mg under the skin every 7 (seven) days. 9 mL 3 03/28/2025 03/28/2026 documented in this encounter Progress Notes * Camilo Hayward, - 03/28/2025 10:30 AM EDT [facility] History of present Illness: Giovanni Sanders is 69 y.o. male who presented today for Chief Complaint Patient presents with Diabetes Follow-up Follow up in about 4 months (around 03/26/2025) for Type 2 DM POCT a1c + PHQ-9.; Pt report has an appt at [facility] for Flu Vaccine 69-year-old male with a history of type 2 diabetes, history of coronary artery disease, hypertension, hyperlipidemia and gout presents to the office for follow-up. Of note patient has been developingneck and shoulder pain that he suspects is due to arthritis. Patient request to have x-rays completed. Of note, the pt [facility] and most recent A1c of 5.2. Review of Systems: Review of Systems Constitutional: Negative for fatigue and fever. HENT: Negative for congestion and sore throat. Respiratory: Negative for cough and shortness of breath. Cardiovascular: Negative for chest pain. Gastrointestinal: Negative for abdominal pain, constipation, diarrhea, nausea and vomiting. Genitourinary: Negative for dysuria. Musculoskeletal: Negative for back pain. Neurological: Negative for dizziness and headaches. Psychiatric/Behavioral: The patient is not nervous/anxious. Exam: Physical Exam Constitutional: General: He is not in acute distress. Appearance: Normal appearance. HENT: Head: Normocephalic and atraumatic. Cardiovascular: Rate and Rhythm: Normal rate and regular rhythm. Pulses: Normal pulses. Heart sounds: Normal heart sounds. No murmur heard. Pulmonary: Effort: Pulmonary effort is normal. No respiratory distress. Breath sounds: Normal breath sounds. Abdominal: General: Bowel sounds are normal. There is no distension. Tenderness: There is no right CVA tenderness or left CVA tenderness. Musculoskeletal: Cervical back: Normal range of motion and neck supple. Lymphadenopathy: Cervical: No cervical adenopathy. Neurological: Mental Status: He is alert. Allergies: Allergies[1] Vitals: 03/28/25 1014 BP: 120/81 BP Location: Left arm Patient Position: Sitting BP Cuff Size: Adult Pulse: 76 Resp: 18 Temp: 36.8 ??C (98.2 ??F) TempSrc: Temporal SpO2: 97% Weight: 88.9 kg (196 lb) Height: 1.778 m (70 ) Body mass index is 28.12 kg/m??. is in the acceptable range. Past Medical History: Medical History[2] Past Surgical History: Surgical History[3] Social History: Tobacco Use History[4] Family History: Family History[5] Home Medications: Current Medications[6] Results: No results found for: WBC , RBC , MCV , MCH , MCHC , RDW , PLTCOUNT , MPV , NEUTROPHILS , LYMPHOCYTES , MONOCYTES , BASOPHILS No results found for: BUN , CREATININE , NA , K , CL , CO2 , CALCIUM , ALBUMIN , ALKPHOS , AST , ALT No results found for: CHOL , HDL , LDLCALC , VLDL , TRIG No results found for: HGBA1C Assessment and Plan: Problem List Items Addressed This Visit Coronary artery disease involving coronary bypass graft of [place] heart without angina pectoris Hypertensive heart and renal disease with (congestive) heart failure ([facility] V24, [facility] V28) Other Visit Diagnoses Type 2 diabetes mellitus with other specified complication, without long-term current use of insulin ([facility] V24, [facility] V28) - Primary Chronic right shoulder pain Relevant Orders XR Shoulder 2+ Views Right Neck pain Relevant Orders XR Cervical Spine 2-3 Views Essential hypertension Mixed hyperlipidemia Gout, unspecified cause, unspecified chronicity, unspecified site Pt to stop metformin given A1c of 5.2 from recent BW at [facility] MDM Number of Diagnoses or Management Options Diagnosis management comments: Type 2 diabetes/established. Blood work reviewed on patient's phone from [facility] demonstrates 5.2. As patient at goal A1c of less than 7, will stop metformin at this time and continue patient on Ozempic 0.5 mg weekly dose. Will recheck patient's A1c in subsequent encounter. History of coronary artery disease/hypertensive heart/renal disease-patient to follow-up with cardiology and continue blood pressure medications including furosemide, carvedilol, amlodipine and spironolactone. Right shoulder pain/neck pain-new problem. Will obtain x-rays of right shoulder and cervical neck to evaluate for arthritis. Patient declining additional medications at this time. Will consider referral to physical therapy if symptoms persist. Hyperlipidemia-established. Patient to continue atorvastatin 80 mg daily. Patient was unable to afford Zetia. Lipid panel was within normal limits. Blood work was reviewed on patient's phone. Essential hypertension-established. Patient continue carvedilol and amlodipine. Patient goal BP of less than 140/90. Gout-patient continue allopurinol 300 mg daily. Return to office in: F/U in 6M for type 2 DM in 5M and AWV in 9M Camilo Hayward DO [facility] This document was created using a voice-recognition software. While I try to document as accuratelyas possible, however there maybe occasional typos and errors that maybe present in the note due to limitations of the voice- recognition software. [1] Allergies Allergen Reactions Grass Pollen Sulfa (Sulfonamide Antibiotics) [2] Past Medical History: Diagnosis Date Allergic rhinitis DX:Allergic rhinitis Anemia DX:Anemia Anxiety DX:Anxiety Depression DX:Depression Headache DX:Headache HL (hearing loss) DX:HL (hearing loss) Hypertension DX:Hypertension Sleep apnea DX:Sleep apnea Visual impairment DX:Visual impairment [3] Past Surgical History: Procedure Laterality Date ADENOIDECTOMY PROCEDURE:ADENOIDECTOMY SPINE SURGERY PROCEDURE:SPINE SURGERY TONSILLECTOMY PROCEDURE:TONSILLECTOMY [4] Social History Tobacco Use Smoking Status Former Current packs/day: 0.00 Types: Cigarettes Quit date: 06/29/2019 Years since quittin.7 Smokeless Tobacco Never [5] Family History Problem Relation Name Age of Onset Diabetes Mother Stroke Mother Heart disease Mother Diabetes Father Heart disease Father Cancer Father Heart disease Sister Kidney disease Sister Heart failure Sister Diabetes Brother Heart disease Brother Mental illness Brother [6] Current Outpatient Medications Medication Sig Dispense Refill allopurinoL (ZYLOPRIM) 300 mg tablet Take 1 tablet (300 mg total) by mouth 1 (one) time each day. amLODIPine (NORVASC) 10 mg tablet Take 1 tablet (10 mg total) by mouth 1 (one) time each day. aspirin 81 mg EC tablet Take 1 tablet (81 mg total) by mouth. atorvastatin (LIPITOR) 80 mg tablet Take 1 tablet (80 mg total) by mouth 1 (one) time each day. 90 each 3 carvediloL (COREG) 6.25 mg tablet Take 1 tablet (6.25 mg total) by mouth 1 (one) time each day. ergocalciferol (VITAMIN D-2) 1,250 mcg (50,000 unit) capsule Take 1 capsule (50,000 Units total) bymouth every 30 (thirty) days. furosemide (LASIX) 40 mg tablet Take 1 tablet (40 mg total) by mouth 1 (one) time each day. PREDNISONE ORAL if needed. psyllium (METAMUCIL) 0.4 gram capsule Take 0.104 g by mouth. semaglutide (OZEMPIC) 0.25 mg or 0.5 mg (2 mg/3 mL) injection pen Inject 0.5 mg under the skin every 7 (seven) days. 9 mL 1 sildenafiL (VIAGRA) 100 mg tablet TAKE 1 TABLET (100 MG TOTAL) BY MOUTH DAILY NEEDED. 4 tablet 44 spironolactone (ALDACTONE) 25 mg tablet Take 1 tablet (25 mg total) by mouth 1 (one) time each day. turmeric 400 mg capsule Take 4 caplet by mouth daily. No current facility-administered medications for this visit. documented in this encounter Plan of Treatment Upcoming Encounters Date Type Department Care Team (Late st Contact Info) Description 08/21/2025 10:00 AM EST Office Visit Internal Medicine - [place] [address] [place] [address] Camilo Hayward DO [address] [place] [address] 11/27/2025 10:30 AM EDT Office Visit Internal Medicine - [facility] [place] [address] [place] [address] Camilo Hayward DO [address] [place] [address] Scheduled Orders Name Type Priority Associated Diagnoses Orde r Schedule XR Shoulder 2+ Views Right Imaging Routine Chronic right shoulder pain Expected: 03/28/2025, Expires: 03/28/2026 XR Cervical Spine 2-3 Views Imaging Routine Neck pain Expected: 03/28/2025, Expires: 03/28/2026 documented as of this encounter Procedures Procedure Name Priority Date/Time Associated Diagnosis Comments CMP, CBC AND LIPID PANEL Routine 03/28/2025 1:18 PM EDT documented in this encounter Results * CMP, CBC and lipid panel (03/28/2025 1:18 PM EDT) Blood Venous blood specimen / Unknown James Mcleod MD LAB BLOOD ORDERABLES Final Result documented in this encounter Visit Diagnoses Diagnosis Type 2 diabetes mellitus with other specified complication, without long-term current use of insulin ([facility] V24, [facility] V28)- Primary Coronary artery disease involving coronary bypass graft of [place] heart without angina pectoris Hypertensive heart and renal disease with (congestive) heart failure ([facility] V24, [facility] V28) Chronic right shoulder pain Pain in joint, shoulder region Neck pain Cervicalgia Essential hypertension Unspecified essential hypertension Mixed hyperlipidemia Gout, unspecified cause, unspecified chronicity, unspecified site documented in this encounter Discontinued Medications Medication Sig Discontinue Reason Start Date End Da te metFORMIN (GLUCOPHAGE) 1,000 mg tablet Take 1 tablet (1,000 mg total) by mouth 1 (one) time each day with breakfast. 12/27/2024 03/28/2025 ezetimibe (ZETIA) 10 mg tablet TAKE 1 TABLET BY MOUTH EVERY DAY 02/03/2025 03/28/2025 multivitamin (MULTIPLE VITAMINS ORAL) Take by mouth. 03/28/2025 semaglutide (OZEMPIC) 0.25 mg or 0.5 mg (2 mg/3 mL) injection penIndications:Type 2 diabetes mellitus with other specified complication, without long-term current use of insulin ([facility] V24, [facility] V28) Inject 0.5 mg under the skin every 7 (seven) days. Reorder 11/23/2024 03/28/2025 documented as of this encounter Additional Health Concerns Assessment Noted Time PHQ-9 Depression Total Score: 8 03/28/20 25 10:20 AM EDT documented as of this encounter Care Teams Clutch Operator Relationship Specialty Start Date End Date Camilo Hayward DO [address] [place] [address] PCP - General 04/27/23 documented as of this encounter
--- NOTE | ~2025-03-29 | XR_ITS ---
EXAMINATION: XR CERVICAL SPINE CLINICAL INFORMATION: neck pain COMPARISON: None available. TECHNIQUE: 3 views of the cervical spine were obtained. FINDINGS: There is no prevertebral soft tissue edema. C2-3: There is a large bridging anterior osteophyte. C3-4: There is mild disc space narrowing and large anterior osteophyte. C4-5: There are large anterior osteophytes. There are uncovertebral osteophytes. C5-6: There is moderate disc space narrowing with degenerative endplate irregularity and large anterior osteophytes. There are small posterior osteophytes. There are uncovertebral osteophytes. C6-7: There is moderate disc space narrowing with endplate osteophytes. There are uncovertebral osteophytes. C7-T1 is moderately obscured by overlapping soft tissues. XR/XR cervical spine 3V IMPRESSION: Multilevel degenerative changes are most advanced at C5-6 and C6-7. Possible underlying diffuse idiopathic skeletal hyperostosis (DISH). Electronically signed by: Cosmo Villalba MD 03/29/2025 10:12 AM EDT
--- NOTE | ~2025-03-29 | XR_ITS ---
EXAMINATION: XR SHOULDER 2 OR MORE VIEWS RIGHT HISTORY: chronic right shoulder pain COMPARISON: There are no prior studies available for comparison. FINDINGS: Four views of the right shoulder are submitted. Osseous mineralization is normal. There is no fracture or dislocation. The glenohumeral joint is maintained. There is moderate osteoarthritis of the AC joint with joint space narrowing and osteophyte formation. The soft tissues are unremarkable. XR/XR shoulder RT min 2V IMPRESSION: Moderate osteoarthritis of the AC joint. Electronically signed by: Shahid Garcia MD 03/29/2025 10:10 AM EDT
--- OUTSIDE RECORDS SUMMARY | 2025-03-29 10:39 | XMS_ITS | Clinical Summary ---
Author Organization [facility] Address [address] [place] [address] Phone Care Team Providers Care Photographic Laboratory Technician Name Role Phone Heidi Hernandez YAZ Primary Care Provider [phone] Allergies Active Allergy Reactions Criticality Noted Date Comments Sulfa Antibiotics 03/21/2021 Medications amLODIPine (NORVASC) 10 MG tablet Take 1 tablet by mouth 1 (one) time each day Active aspirin (ST GIOVANNI) 81 MG EC tablet Take 1 tablet by mouth 1 (one) time each day Active atorvastatin (LIPITOR) 80 MG tablet Take 80 mg by mouth 1 (one) time each day 07/10/2020 Active carvedilol (COREG) 12.5 MG tablet Take 1.5 tablets by mouth 2 (two) times a day Active ezetimibe (ZETIA) 10 MG tablet Take 10 mg by mouth 1 (one) time each day 07/31/2020 Active sildenafil (VIAGRA) 100 MG tablet Take 100 mg by mouth 10/14/2019 Active psyllium (METAMUCIL) 0.52 g capsule Take 0.104 g by mouth 2 (two) times a day Active spironolactone (ALDACTONE) 25 MG tablet TAKE 1 TABLET BY MOUTH EVERY DAY 90 tablet 5 01/31/2022 Active metFORMIN (GLUCOPHAGE) 1000 MG tablet Take [...] mouth in the morning. 90 tablet 3 06/30/2024 Active ergocalciferol 1.25 MG (32852 UT) capsule TAKE 1 CAPSULE (50,000 UNITS TOTAL) BY MOUTH EVERY 30 DAYS 3 capsule 01/04/2025 Active furosemide (LASIX) 40 MG tablet TAKE 1 TABLET BY MOUTH EVERY DAY 90 tablet 2 02/17/2025 Active Active Problems Problem Noted Date Diagnosed [...] Refill [facility] [address] [place] [address] Fer Leigh MD 01/25/2025 Orders Only [facility] [address] [place] [address] Fer Leigh MD Stage 3b chronic kidney disease (HCC); Type 2 diabetes mellitus with diabetic chronic kidney disease (HCC); Hypertension 01/04/2025 Refill [facility] [address] [place] [address] [address] [place] [address] Fer Leigh MD from Last 3 Months [...] Visit [facility] [address] [place] [address] Fer Leigh MD [address] [facility] [address] [place] [address] Health Maintenance Due Date Last Done [...] patient's age to complete this topic [place] [address] Care Teams Photographic Laboratory Technician Relationship Specialty Start Date End Date Heidi Hernandez FNP [address] [place] [address] [address] [place], [place] PCP - General 07/09/20
--- OUTSIDE RECORDS SUMMARY | 2025-03-29 10:39 | XMS_ITS | Patient Health Record ---
Author Organization [facility] Address [address] [place] [address] Care Team Providers Care Flake Drier Name Role Phone Camilo Hayward D.O. Primary Care Provider Unavail able Daron Mcfadden Taj Unavailable Allergies No Known Allergies Results Component Value Reference Range Notes Glucose, Whole Blood Reviewed date:07/27/2024 04:44:26 PM Interpretation: Performing Lab:[facility], [address] [place] [phone] Notes/Report: Glucose, Whole Blood 95 60-115 mg/dL METER # : [id number] Pathology Reviewed date:08/04/2024 01:22:16 PM Interpretation: Performing Lab:[facility], [address] [place] [phone] Notes/Report: Glucose, Whole Blood Reviewed date:07/27/2024 04:44:21 PM Interpretation: Performing Lab:[facility], [address] [place] [phone] Notes/Report: Glucose, Whole Blood 88 60-115 mg/dL METER # : [id number] Glucose, Whole Blood Reviewed date:11/10/2024 08:13:44 AM Interpretation: Performing Lab:[facility], [address] [place] [phone] Notes/Report: Glucose, Whole Blood 93 60-115 mg/dL METER # : [id number] Pathology Reviewed date:11/17/2024 10:37:26 AM Interpretation: Performing Lab:[facility], [address] [place] [phone] Notes/Report: Reason For Referral No Information Medications Medication SIG (Take, Route, Frequency, Duration) Notes Start Date End Date Status Turmeric Active Aspirin 81 Active metFORMIN HCl 1000 MG Oral for 90 Active Allopurinol 300 MG Oral for 90 Active Vitamin D (Ergocalciferol) 1.25 MG (86893 UT) TAKE 1 CAPSULE (50,000 UNITS TOTAL) [...] Problem Status W/U Status Risk Notes Problem 489928659 Colon cancer screening (Z12.11) Active confirmed Problem Gastro-esophage al reflux disease without esophagitis (695132155) Gastro-esophageal reflux disease without esophagitis (K21.9) Active confirmed Problem 100775649 Gastroesophageal reflux disease without esophagitis (K21.9) Active confirmed Problem 96043222 Nausea and vomiting, unspecified vomiting type (R11.2) Active confirmed Vital Signs Blood pressure diastolic 00 mm Hg 07/07/2024 Height 5 ft 9 in in 07/07/2024 Blood pressure systolic 00 mm Hg 07/07/2024 Weight 197 lbs 07/07/2024 BMI 29.09 kg/m2 07/07/2024 Encounters Encounter Location Date Provider Diagnosis [facility] [address] [place] [id number] 07/27/2024 Taj Neri Jr Colon cancer screening Z12.11 ; Colon polyps K63.5 ; Intractable vomiting with nausea, unspecified vomiting type R11.2 and Gastro-esophageal reflux disease without esophagitis K21.9 [facility] [address] [place] [address] [id number] 11/09/2024 Taj Neri Jr Gastro-esophageal reflux disease without esophagitis K21.9 and Erosive esophagitis K22.10 [facility] [address] [place] [address] 07/07/2024 Taj Neri Jr Nausea and vomiting, unspecified vomiting type R11.2 ; Gastroesophageal reflux disease without esophagitis K21.9 and Colon cancer screening Z12.11 [facility] [address] [place] [address] 08/04/2024 Taj Neri Jr [facility] [address] [place] [phone] 11/17/2024 Taj Neri Jr Assessments Encounter Date [...] Insured Coverage Start Date Coverage End Date [facility] [address] [place] [phone] [id number] SANTI HERNANDEZ Self - patient is the insured Medical (General) History Medical History History ICD Code Hypertension and Allergic rhinitis Diabetes mellitus type 2 Coronary artery disease with history of IN and CABG Gout Chronic kidney disease Colonoscopy, 03/09, hyperplastic polyp, t en-year followup Hyperlipidemia JUAN C Surgical History Surgery Date(Month/Year) tonsillectomy and adenoidectomy spinal surgery triple bypass
--- OUTSIDE RECORDS SUMMARY | 2025-03-29 10:40 | XMS_ITS | Encounter Summary ---
Author Organization [facility] Address [address] [address] Phone Care Team Providers Care Solar Photovoltaic Installer Name Role Phone Heidi Hernandez Primary Care Provider [phone] Reason for Visit * Reason Comments Med Change Request Encounter Details Date Type Department Care Team ([facility] Contact Info) Description 06/30/2024 Refill [facility] [address] [place] [address] Fer Leigh MD [address] [address] Social History Tobacco Use Types [...] Office Visit [facility] [address] [place] [address] Fer Leigh MD [address] [address] documented as of this encounter Visit Diagnoses Not on filedocumented in this encounter Care Teams Solar Photovoltaic Installer Relationship Specialty Start Date End Date Heidi Hernandez FNP [address] [place] PCP - General 07/09/20 documented as of this encounter
--- OUTSIDE RECORDS SUMMARY | 2025-03-29 10:40 | XMS_ITS | Encounter Summary ---
Author Organization [facility] Address [address] [address] Phone Care Team Providers Care Orthotic Aide Name Role Phone Heidi Hernandez Primary Care Provider [phone] Reason for Visit * Reason Comments Med Change Request Encounter Details Date Type Department Care Team ([facility] Contact Info) Description 06/30/2024 Refill [facility] [address] [place] [address] Fer Leigh MD [address] [address] Social History Tobacco Use Types [...] Office Visit [facility] [address] [place] [address] Fer Leigh MD [address] [address] documented as of this encounter Visit Diagnoses Not on filedocumented in this encounter Care Teams Orthotic Aide Relationship Specialty Start Date End Date Heidi Hernandez FNP [address] [place] PCP - General 07/09/20 documented as of this encounter
--- OUTSIDE RECORDS SUMMARY | 2025-03-29 10:40 | XMS_ITS | Encounter Summary ---
Author Organization [facility] Address [address] [facility] [address] [place] [address] Phone Care Team Providers Care Gasket Inspector Name Role Phone Heidi Hernandez Primary Care Provider [phone] Encounter Details Date Type Department Care Team (Late Contact Info) Description 02/17/2024 Office Communication [facility] [address] [facility] [address] [place] [address] Fer Leigh MD [address] [address] Social History Tobacco Use Types [...] Office Visit [facility] [address] [place] [address] Fer Leigh MD [address] [address] documented as of this encounter Visit Diagnoses Not on filedocumented in this encounter Care Teams Gasket Inspector Relationship Specialty Start Date End Date Heidi Hernandez FNP [address] [place] [address] [address] [place] PCP - General 07/09/20 documented as of this encounter
--- OUTSIDE RECORDS SUMMARY | 2025-03-29 10:40 | XMS_ITS | Clinical Summary ---
Author Organization [address] [employer] [employer] Address [address] [address] Phone Care Team Providers Care Cycle Consultant Name Role Phone Camilo Hayward DO Primary Care Provider [phone] Allergies Active Allergy Reactions Criticality Noted Date Comments Grass Pollen 03/28/2025 Sulfa (Sulfonamide Antibiotics) 02/28 Medications amLODIPine (NORVASC) 10 mg tablet Take 1 tablet (10 mg total) by mouth 1 (one) time each day. 03/14/20 24 Active aspirin 81 mg EC tablet Take 1 tablet (81 mg total) by mouth. Active ergocalciferol (VITAMIN D-2) 1,250 mcg (50,000 unit) capsule Take 1 capsule (50,000 Units total) by mouth every 30 (thirty) days. 02/17/20 24 Active furosemide (LASIX) 40 mg tablet Take 1 tablet (40 mg total) by mouth 1 (one) time each day. 09/22/19 24 Active PREDNISONE ORAL if needed. Active psyllium (METAMUCIL) 0.4 gram capsule Take 0.104 g by mouth. Active spironolactone (ALDACTONE) 25 mg tablet Take 1 tablet (25 mg total) by mouth 1 (one) time each day. 03/14/20 24 Active turmeric 400 mg capsule Take 4 caplet by mouth daily. Active sildenafiL (VIAGRA) 100 mg tablet TAKE 1 TABLET (100 MG TOTAL) BY MOUTH DAILY NEEDED. 4 tablet 44 06/02/20 24 Active allopurinoL (ZYLOPRIM) 300 mg tablet Take 1 tablet (300 mg total) by mouth 1 (one) time each day. Active carvediloL (COREG) 6.25 mg tablet Take 1 tablet (6.25 mg total) by mouth 1 (one) time each day. Active atorvastatin (LIPITOR) 80 mg tabletIndicati ons:Coronary artery disease involving coronary bypass graft of [place] heart without angina pectoris Take 1 tablet (80 mg total) by mouth 1 (one) time each day. 90 each 3 03/10/20 25 026 Active semaglutide (OZEMPIC) 0.25 mg or 0.5 mg (2 mg/3 mL) injection penIndications :Type 2 diabetes mellitus with other specified complication, without long-term current use of insulin ([facility] V24, [facility] V28) Inject 0.5 mg under the skin every 7 (seven) days. 9 mL 3 03/28/20 25 026 Active multivitamin (MULTIPLE VITAMINS ORAL) Take by mouth. 025 Discontinued semaglutide (OZEMPIC) 0.25 mg or 0.5 mg (2 mg/3 mL) injection penIndications :Type 2 diabetes mellitus with other specified complication, without long-term current use of insulin ([facility] V24, [facility] V28) Inject 0.5 mg under the skin every 7 (seven) days. 9 mL 1 11/24/19 25 025 Discontinued(Re order) atorvastatin (LIPITOR) 80 mg tabletIndicati ons:Coronary artery disease involving coronary bypass graft of [place] heart without angina pectoris Take 1 tablet (80 mg total) by mouth 1 (one) time each day. 90 tablet 12/06/19 25 025 Discontinued(Re order) metFORMIN (GLUCOPHAGE) 1,000 mg tablet Take 1 tablet (1,000 mg total) by mouth 1 (one) time each day with breakfast. 90 each 12/28/19 25 025 Discontinued ezetimibe (ZETIA) 10 mg tablet TAKE 1 TABLET BY MOUTH EVERY DAY 90 tablet 2 02/04/20 25 025 Discontinued Active Problems Problem Noted Date Diagnosed Date Allergic rhinitis 05/16/2024 Anxiety 05/16/2024 Depression 05/16/2024 Assessment & Plan (11/23/2024 10:10 AM EDT): PHQ-9: 7. Pt declined treatment at this time. Pt to f/u in 3M to repeat PHQ-9 and consider treatment on subsequent encounter. Hypertension 05/16/2024 Sleep apnea 05/16/2024 Hypertensive heart and renal disease with (congestive) heart failure ([facility] V24, [facility] V28) 09/13/2020 Assessment & Plan (11/23/2024 10:10 AM EDT): Pt to f/u with cardiology. Coronary artery disease invo lving coronary bypass graft of [place] heart without angina pectoris 03/07/2019 Assessment & Plan (11/23/2024 10:10 AM EDT): Pt to f/u with cardiology Encounters Date Type Department Care Team Description 03/28/2025 10:30 AM EDT Office Visit Internal Medicine - [address] [address] Camilo Hayward, Type 2 diabetes mellitus with other specified complication, without long-term current use of insulin ([facility] V24, [facility] V28) (Primary Dx); Coronary artery disease involving coronary bypass graft of [place] heart without angina pectoris; Hypertensive heart and renal disease with (congestive) heart failure ([facility] V24, [facility] V28); Chronic right shoulder pain; Neck pain; Essential hypertension; Mixed hyperlipidemia; Gout, unspecified cause, unspecified chronicity, unspecified site from Last 3 Months Immunizations Immunization Administration Dates Next Due Influenza Quadravalent, 0.5m l (Fluad) 65yo and older 04/22/2023 Influenza Quadravalent, 0.5m l (Fluzone High-dose) 65yo and older 04/02/2021 Influenza trivalent, 0.5mL ( Fluzone High-dose) 65yo and older 04/14/2024 AmberWave SARS-CoV-2 COVID-19, mRNA, LNP-S, preservative free 05/20/2021,07/13/2020,06/21/2020 Pneumococcal conjugate 20 va lent (Prevnar 20, PCV 20) 2mo and older 06/05/2023 RSV, bivalent, protein subun it RSVpreF, 0.5mL, Preservative Free (Arexvy) 50yo and older 04/22/2023 Tdap Tetanus diptheria acell [...] care for your loved ones. For example, childcare worker or elderly care for an older adult? [...] Mass Index 28.12 03/28/2025 10:14 AM EDT Plan of Treatment Upcoming Encounters Date Type Department Care Team (Late st Contact Info) Description 08/21/2025 10:00 AM EST Office Visit Internal Medicine - [place] [address] [place] [address] Camilo Hayward, DO [address] [place] [address] 11/27/2025 10:30 AM EDT Office Visit Internal Medicine - [place] [address] [place] [address] Yesy Camilo, [address] [place] [address] Health Maintenance Due Date Last Done Comments [...] 11/22/2025 11/22/2024 Falls Risk Assessment 11/23/2025 11/23/2024, 024 Medicare Annual Wellness Visit 11/23/2025 11/23/2024 DTaP,Tdap,and Td Vaccines (2 - Td or Tdap) 11/12/2030 11/12/2020 Colorectal Cancer Screening: Colonoscopy 07/19/2034 07/19/2024, 02/06/2011 RSV Immunization Adult Patients Completed 04/22/2023 Pneumococcal Vaccine: 50+ Years Completed 06/05/2023 Depression Screening Completed 03/28/2025, 03/28/20 Abdominal Aortic Aneurysm (AAA) Screen Discontinued [...] LIPID PANEL Routine 03/28/2025 1:18 PM EDT EXTERNAL DIABETIC RETINA EYE EXAM 07/12/2024 DEPRESSION SCREENING Routine 03/28/2024 FALLS RISK ASSESSMENT Routine 03/28/2024 URINE ALBUMIN CREATININE RATIO Routine 11/30/2023 ANNUAL BMP BLOOD TEST Routine 09/01/2019 COLONOSCOPY Routine 02/06/2011 from Last 3 Months or Most Recently Relevant to Health Maintenance Results * CMP, CBC and lipid panel (03/28/2025 1:18 PM EDT) Blood Venous blood specimen / Unknown James Mcleod MD LAB BLOOD ORDERABLES Final Result * External Diabetic Retina Eye Exam Report (07/12/2024) Anatomical Region Laterality Modality Ultrasound Provider [facility] US PROCEDURES Final Result * Falls Risk Assessment (03/28/2024) Pathologist [facility] Falls Risk Assessment ABSTRACTED Historical Provider HEALTH MAINTENANCE Final Result * Depression Screening (03/28/2024) Pathologist [facility] Depression Screening ABSTRACTED Historical Provider HEALTH MAINTENANCE Final Result * Urine Albumin Creatinine Ratio (11/30/2023) Pathologist [facility] Urine Albumin Creatinine Ratio ABSTRACTED Result [facility] Historical Provider HEALTH MAINTENANCE Final Result * Annual BMP Blood Test (09/01/2019) Pathologist [facility] Annual BMP Blood Test ABSTRACTED Result [facility] Historical Provider HEALTH MAINTENANCE Final Result * Colonoscopy (02/06/2011) Pathologist [facility] Colonoscopy no interpretation , abstracted Anatomical Region Laterality Modality Other Result [facility] Provider HEALTH MAINTENANCE Final Result from Last 3 Months or Most Recently Relevant to Health Maintenance Insurance [employer] [place] MEDICARE ADVANTAGE MEDICARE Advance Directives Healthcare Agents on File Name Relationship Healthcare Agent Relationsnv p Communication Lise Jenny Relative First Alternate Health Care Agent Care Teams Cycle Consultant Relationship Specialty Start Date End Date Camilo Hayward DO [address] [place] [address] PCP - General 04/27/23
--- OUTSIDE RECORDS SUMMARY | 2025-03-29 10:40 | XMS_ITS | Clinical Summary ---
Author Organization [facility] Address [address] [place] [address] Care Team Providers Care Medical Researcher Name Role Phone Camilo Hayward MD Primary [...] 3 03/14/2024 Active ergocalciferol (VITAMIN D2) capsule 52174 units Take 1 capsule (50,000 Units total) by mouth every 30 (thirty) days. 0 02/17/2024 Active Active Problems Problem Noted Date Diagnosed Date Hypertensive heart and renal disease with (congestive) heart failure 09/13/2020 Coronary artery disease invo lving coronary bypass graft of [place] heart without angina pectoris 03/07/2019 Allergic rhinitis Anxiety Depression Hypertension Sleep apnea Immunizations Name Administration Dates Next Due Covid-19 ([employer] Dilution Required 05/20/2021,0 07/13/2020,06/21/2020 Covid-19 ([employer] Ready To Use 04/14/2024 Influenza Quad (Fluad) [...] Group Subscriber ID Effective Dates Phone Address [facility] [id number] 2023-Present [address] [address] HMO Care Teams Medical Researcher Relationship Specialty Start Date End Date Camilo Hayward MD PCP - General Family Medicine 04/27/23
== END 2025-03-29 09:45 | disposition home or self-care (01) ==
LOC: HO.XRAY 09:44
PROVIDERS: PCP Family Medicine; Visit Provider Family Medicine
DX: M54.2 Cervicalgia (principal); M25.511 Pain in right shoulder; G89.29 Other chronic pain
CPT/HCPCS: 72040; 73030

== ENCOUNTER → 2025-03-29 09:57 | Outpatient (BNV) | payer MEDICARE, SELFPAY | PROVIDERS: PCP Family Medicine; Visit Provider Radiology Diagnostic Radiology | DX: M50.322 Other cervical disc degeneration at C5-C6 level (principal); M19.011 Primary osteoarthritis, right shoulder | CPT/HCPCS: 72040; 73030 ==

== ENCOUNTER 2025-05-09 13:30 | Outpatient (AMB) | payer MEDICARE, SELFPAY ==
--- OUTSIDE RECORDS SUMMARY | 2024-07-27 08:00 | XMS_ITS ---
Author Organization [facility] Address [address] [place] [address] Care Team Providers Care Paper Hanger Name Role Phone Camilo Hayward D.O. Primary Care Provider Unavail Taj Landon Jr Unavailable REASON FOR VISIT gerd, nausea, vomiting,screening Problems Problem Type SNOMED Code ICD Code Onset Dates Problem Status W/U Status Risk Notes Problem Gastro-esophagea l reflux disease without esophagitis (859919986) Gastro-esophage al reflux disease without esophagitis (K21.9) Active confirmed Encounters Encounter Location Date Provider Diagnosis [facility] [place] Out[address] [place], [place] [id number] 07/27/2024 Taj Neri Jr Colon cancer screening Z12.11 ; Colon polyps K63.5 ; Intractable vomiting with nausea, unspecified vomiting type R11.2 and Gastro-esophageal reflux disease without esophagitis K21.9 Assessments Encounter Date Diagnosis (ICD Code) Assessment Notes Treatment Notes Treatment Clinical Notes Section Notes 07/27/2024 Colon cancer screening (ICD-10 - Z12.11) 07/27/2024 Colon polyps (ICD-10 - K63.5) 07/27/2024 Intractable vomiting with nausea, unspecified vomiting type (ICD-10 - R11.2) 07/27/2024 Gastro-esophagea l reflux disease without esophagitis (ICD-10 - K21.9) Plan Of Treatment No Information Progress Notes * SANTI HERNANDEZDOB:[birth year] (69 yo M)Acc No.[id number]:07/27/2024 EGD and COL/MAC Patient: Dali SANTI JUDD Provider: Dio Neri MD :1955 A ge:69 Y S ex:Male Date:07/27/2024 Address:[address] [place] [address] Pcp:Camilo Hayward D.O. Subjective: * Chief Complaints: * 1 . Gerd, nausea, vomiting,screening. * Medical History: Objective: * Vitals: Assessment: * Assessment: 1. C olon cancer screening - Z12.11 (Primary) 2 . C olon polyps - K63.5? 3. I ntractable vomiting with nausea, unspecified vomiting type - R11.2 4 . G loida-esophageal reflux disease without esophagitis - K21.9 Plan: * Treatment: * Procedure Codes: 4 5385 LESION REMOVAL COLONOSCOPY, 57670 COLONOSCOPY AND BIOPSY, Modifiers: 61 , 0529F INTRVL 3+YRS PTS CLNSCP DOCD, 44883 UPPER GI ENDOSCOPY, BIOPSY * * The named appointment provid er may or may not be the originator of this progress note, and it is not deemed complete until electronically signed by the appointment provider. Sign off status: Pending * Provider: Dio Neri MD Date: 0 07/27/2024 Generated for Josh alcaraz/Yadi/Larrysmitting on: 07/09/2024 03:05 PM EST
--- OUTSIDE RECORDS SUMMARY | 2024-11-09 08:00 | XMS_ITS ---
Author Organization [facility] Address [address] [place] [address] Care Team Providers Care Pea Viner Mechanic Name Role Phone Camilo Hayward D.O. Primary Care Provider Unavail Taj Landon Jr Unavailable REASON FOR VISIT erosive esophagitis Encounters Encounter Location Date Provider Diagnosis [facility] Out[place] [address] [place] [phone] 11/09/2024 Taj Neri Jr Gastro-esophageal reflux disease without esophagitis K21.9 and Erosive esophagitis K22.10 Assessments Encounter Date Diagnosis (ICD Code) Assessment Notes Treatment Notes Treatment Clinical Notes Section Notes 11/09/2024 Gastro-esophagea l reflux disease without esophagitis (ICD-10 - K21.9) 11/09/2024 Erosive esophagitis (ICD-10 - K22.10) Plan Of Treatment No Information Progress Notes * SANTI HERNANDEZDOB:[birth year] (69 yo M)Acc No.[id number]:11/09/2024 EGD/MAC Patient: SANTI SHERMAN Provider: Dio Neri MD :1955 A ge:69 Y S ex:Male Date:11/09/2024 Address:[address] [place] [address] Pcp:Camilo Hayward D.O. Subjective: * Chief Complaints: * 1 . Erosive esophagitis. * Medical History: Objective: * Vitals: Assessment: * Assessment: 1. G loida-esophageal reflux disease without esophagitis - K21.9 (Primary) 2 .?Erosive esophagitis - K22.10 Plan: * Treatment: * Procedure Codes: 4 3239 UPPER GI ENDOSCOPY, BIOPSY * * The named appointment provid er may or may not be the originator of this progress note, and it is not deemed complete until electronically signed by the appointment provider. Sign off status: Pending * Provider: Dio Neri MD Date: 0 11/09/2024 Generated for Josh alcaraz/Yadi/Mercedesitting on: 1 07/09/2024 03:05 PM EST
[2025-05-09 13:34] VITALS: BP 130/68; PULSE 90; BMI 29.6
--- NOTE | 2025-05-09 13:34 | MHC.OFFVIS ---
Vital Signs 05/09/25 13:34 Height 5 ft 9 in Weight 200 lb 9.93 oz BMI 29.6 BP 130/68 Blood Pressure Location Lt brachial Position Sitting Pulse 90 Pulse Source Pulse Oximeter Intake Visit Reasons: r/s-04/13-6 mth f/up Allergies Sulfa (Sulfonamide Antibiotics) Adverse Reaction (Mild, Verified 10/04/24 09:24) Nausea hydrocodone Adverse Reaction (Unknown, Verified 10/04/24 09:24) Nausea Medication List - Last Reconciled 05/09/25 by Min Vanegas MD allopurinol 300 mg PO DAILY amlodipine 10 mg PO DAILY aspirin 81 mg PO DAILY atorvastatin 80 mg PO DAILY carvedilol (Coreg) 6.25 mg PO BID 90 days cholecalciferol (vitamin D3) 1,250 mcg PO QWEEK colchicine Take 2 tabs once at the onset of gout attack. NS ezetimibe 10 mg PO DAILY furosemide 40 mg PO DAILY 90 days metformin 1,000 mg PO BID psyllium 1 tsp PO DAILY semaglutide (Ozempic) 0.25 mg subcut QWEEK sildenafil 100 mg PO DAILY PRN spironolactone 25 mg PO DAILY HPI Comments Details: Giovanni returns for follow-up regarding coronary disease, bypass surgery as well as ischemic cardiomyopathy. In the past, due to symptoms of heart failure as well as low EF on echocardiogram, he underwent cardiac catheterization. This showed multivessel CAD, leading to bypass surgery. Since last seen, he states he is feeling very good. No cardiac symptoms. Blood pressure is well controlled. In fact he states sometimes it does go low as well. [facility] Medical History CKD (chronic kidney disease) Diabetes Myocardial infarct Carpal tunnel syndrome Gout Right bundle branch block JUAN C on CPAP Other and unspecified hyperlipidemia Essential hypertension Atherosclerotic cardiovascular disease Ischemic cardiomyopathy Surgical History History of esophagogastroduodenoscopy (EGD) H/O colonoscopy History of tonsillectomy History of knee surgery H/O microdiscectomy History of cardiac catheterization History of coronary artery bypass graft (~06/2018) Family History Father No problems noted. Mother No problems noted. Social History (Updated 10/04/24 @ 09:27 by Loree Collins CMA) Household Members Other:: Lives alone Are you a primary medicare contact specialist to a significant other at home: No Do you presently have visiting nurse or other home services: No Alcohol intake: never Patient Tobacco Use Status: Former Tobacco user Years Smoked: Quit 3 years ago Review of Systems Const Denies weakness ENT Denies dizziness Card Denies chest pain, Denies chest pain with activity, Denies syncope, Denies rapid heart rate, Denies pedal edema, Denies edema, Denies leg edema, Denies lightheadedness, Denies palpitations, Denies dyspnea, Denies dyspnea on exertion and Denies orthopnea Resp Denies cough, Denies dyspnea and Denies dyspnea on exertion GI Denies hematochezia and Denies change in stool character Musc Denies abnormal gait, Denies muscle cramps, Denies muscle weakness, Denies numbness, Denies radiating pain into limb and Denies tingling Neuro Denies abnormal gait, Denies dizziness, Denies syncope, Denies numbness, Denies tingling and Denies weakness Endo Denies palpitations Physical Exam Vital Signs: Last Vital Signs Pulse 90 05/09/25 13:34 BP 130/68 05/09/25 13:34 BMI result Body Mass Index 29.6 Const General: comfortable and no acute distress Orientation/consciousness: patient oriented x3 HEENT Other: Unremarkable Head: Yes normal to inspection Neck Neck: Yes normal visual inspection Chest Chest palpation & inspection: normal inspection of the chest Resp Auscultation: clear to auscultation bilaterally Cardio Palpation: normal PMI Heart sounds: S1 normal heart sound present, S2 normal heart sound present, no gallops, no murmurs and no rubs GI Palpation (GI): Soft to palpation Back/Spine/Pelvis Other: unremarkable Skin General skin exam: no rashes or lesions noted Neuro General: patient oriented x3 Extrem General: Yes normal to inspection Psych Mental Status: mental status grossly normal Assessment & Plan Assessment & Plan (1) Atherosclerotic cardiovascular disease: Code(s): I25.10 - Atherosclerotic heart disease of [place] coronary artery without angina pectoris Category: Medical Plan: Cardiac catheterization with 3 vessel disease, chronic total occlusion of RCA. He is status post CABG. Right-sided PDA was very small and given lack of viability, not revascularized. Doing well. No angina. Continue aspirin/statins. (2) Ischemic cardiomyopathy: Comment: follows w/HCS Code(s): I25.5 - Ischemic cardiomyopathy Category: Medical Plan: Recovered EF. Clinically, no heart failure. (3) Essential hypertension: Code(s): I10 - Essential (primary) hypertension Category: Medical Plan: Difficult to control in the past but currently much better. (4) Other and unspecified hyperlipidemia: Code(s): E78.5 - Hyperlipidemia, unspecified Category: Medical Plan: Continue statins and Zetia. LDL 64 mg/dL. (5) Right bundle branch block: Code(s): I45.10 - Unspecified right bundle-branch block Category: Medical Plan: He has first-degree heart block as well as right bundle-branch block. To be monitored for any progressive heart blocks. Coding Level of Care Code Est Pt Level 4 (74052) Complex EM visit Add On G2211 Diagnoses Atherosclerotic cardiovascular disease I25.10 Ischemic cardiomyopathy I25.5 Essential hypertension I10 Other and unspecified hyperlipidemia E78.5 Right bundle branch block I45.10
--- OUTSIDE RECORDS SUMMARY | 2025-05-09 15:06 | XMS_ITS | Patient Health Record ---
Author Organization [facility] Address [address] [place] [address] Care Team Providers Care Information Technology Auditor Name Role Phone Camilo Hayward D.O. Primary Care Provider Unavail able Daron Mcfadden Taj Unavailable Allergies No Known Allergies Results Component Value Reference Range Notes Glucose, Whole Blood Reviewed date:07/27/2024 04:44:26 PM Interpretation: Performing Lab:[facility], [address] [place] [phone] Notes/Report: Glucose, Whole Blood 95 60-115 mg/dL METER # : [id number] Pathology Reviewed date:08/04/2024 01:22:16 PM Interpretation: Performing Lab:[facility], [address] [place] [phone] Notes/Report: Glucose, Whole Blood Reviewed date:07/27/2024 04:44:21 PM Interpretation: Performing Lab:[facility], [address] [place] [phone] Notes/Report: Glucose, Whole Blood 88 60-115 mg/dL METER # : [id number] Glucose, Whole Blood Reviewed date:11/10/2024 08:13:44 AM Interpretation: Performing Lab:[facility], [address] [place] [phone] Notes/Report: Glucose, Whole Blood 93 60-115 mg/dL METER # : [id number] Pathology Reviewed date:11/17/2024 10:37:26 AM Interpretation: Performing Lab:[facility], [address] [place] [phone] Notes/Report: Reason For Referral No Information Medications Medication SIG (Take, Route, Frequency, Duration) Notes Start Date End Date Status Turmeric Active Aspirin 81 Active metFORMIN HCl 1000 MG Oral; Duration: 90 Active Allopurinol 300 MG Oral; Duration: 90 Active Vitamin D (Ergocalciferol) 1.25 MG (83796 UT) TAKE 1 CAPSULE (50,000 UNITS TOTAL) BY MOUTH EVERY 30 DAYS Oral; Duration: 90 Active Atorvastatin Calcium 80 MG TAKE 1 TABLET BY MOUTH EVERY DAY Oral; Duration: 90 Active Carvedilol 12.5 MG TAKE 1.5 TABLETS (18 .75 MG TOTAL) BY MOUTH 2 (TWO) TIMES A DAY WITH MEALS. Oral; Duration: 90 Active amLODIPine Besylate 10 MG TAKE 1 TABLET BY MOUTH EVERY DAY Oral; Duration: 90 Active Ozempic (1 MG/DOSE) 4 MG/3ML Subcutaneous; Duration: 84 Active Ezetimibe 10 MG Oral; Duration: 90 Active Furosemide 40 MG Oral; Duration: 90 Active Social History Tobacco Use: Social [...] Problem Status W/U Status Risk Notes Problem Colon cancer screening (461930591) Colon cancer screening (Z12.11) Active confirmed Problem Gastro-esophageal reflux disease without esophagitis (589639621) Gastro-esophageal reflux disease without esophagitis (K21.9) Active confirmed Problem Gastroesophageal reflux disease without esophagitis (454684863) Gastroesophageal reflux disease without esophagitis (K21.9) Active confirmed Problem Nausea and vomiting (09767989) Nausea and vomiting, unspecified vomiting type (R11.2) Active confirmed Vital Signs Blood pressure diastolic 00 mm Hg 07/07/2024 Height 5 ft 9 in in 07/07/2024 Blood pressure systolic 00 mm Hg 07/07/2024 Weight 197 lbs 07/07/2024 BMI 29.09 kg/m2 07/07/2024 Encounters Encounter Location Date Provider Diagnosis [facility] [address] [place] [id number] 07/27/2024 Taj Neri Jr Colon cancer screening Z12.11 ; Colon polyps K63.5 ; Intractable vomiting with nausea, unspecified vomiting type R11.2 and Gastro-esophageal reflux disease without esophagitis K21.9 [facility] [address] [place], [place] [phone] 11/09/2024 Taj Neri Jr Gastro-esophageal reflux disease without esophagitis K21.9 and Erosive esophagitis K22.10 [facility] [address] [place] [phone] 07/07/2024 Taj Neri Jr Nausea and vomiting, unspecified vomiting type R11.2 ; Gastroesophageal reflux disease without esophagitis K21.9 and Colon cancer screening Z12.11 [facility] [address] [place] [phone] 08/04/[address] [facility] [address] [place] [address] Drive [address] [place] [phone] 11/17/2024 Taj Neri Jr Assessments Encounter Date [...] Insured Coverage Start Date Coverage End Date [facility] [address] [place] [address] [id number] SANTI HERNANDEZ Self - patient is the insured Medical (General) History Medical History History ICD Code Hypertension and Allergic rhinitis Diabetes mellitus type 2 Coronary artery disease with history of [place] and CABG Gout Chronic kidney disease Colonoscopy, 03/09, hyperplastic polyp, t en-year followup Hyperlipidemia JUAN C Surgical History Surgery Date(Month/Year) tonsillectomy and adenoidectomy spinal surgery triple bypass
== END 2025-05-09 13:50 | disposition home or self-care (01) ==
LOC: HO.HCS 13:31
PROVIDERS: PCP Family Medicine; Visit Provider Internal Medicine
DX: I25.10 Atherosclerotic heart disease of native coronary artery without angina pectoris (principal); I25.5 Ischemic cardiomyopathy; I10 Essential (primary) hypertension; E78.5 Hyperlipidemia, unspecified; I45.10 Unspecified right bundle-branch block
CPT/HCPCS: 99214; G2211

== ENCOUNTER → 2025-05-09 13:30 | Outpatient (BNVA) | payer MEDICARE, SELFPAY | PROVIDERS: PCP Family Medicine; Visit Provider Internal Medicine | DX: I25.10 Atherosclerotic heart disease of native coronary artery without angina pectoris (principal); I25.5 Ischemic cardiomyopathy; I10 Essential (primary) hypertension; E78.5 Hyperlipidemia, unspecified; I45.10 Unspecified right bundle-branch block | CPT/HCPCS: 99212 ==